=== PATIENT | female | born 1955 | race Caucasian/White ===

== ENCOUNTER → 2016-06-16 | Outpatient (CLI) | payer OTHER ==
[2016-01-26 13:03] VITALS: BP 101/57
--- NOTE | 2016-06-16 11:42 | RAD ---
HISTORY: Pain Study: Left shoulder series Comparison: None Findings: The glenohumeral joint is intact. No fracture or dislocation is seen. There are mild hypertrophic ch anges of the AC joint. The bones are osteopenic. The soft tissues are normal. IMPRESSION: Mild hypertrophic changes of the AC joint and osteopenia with no acute bony abnormality seen. Reported By:
--- NOTE | 2016-06-16 12:59 | MRI ---
Indication: Neck pain. Exam: MRI cervical spine without contrast. Technique: Routine multiplanar multisequence imaging was performed through the cervical spine withou t contrast. Findings: The cervical vertebra are well aligned. There is moderate disc space narrowing throughout the lower cervical spine which is most prominent at C6-7. No fracture or subluxation is seen. The ce rvical cord is normal size and signal intensity and the craniocervical junction is unremarkable. The bone marrow signal is normal throughout. There is a small disc osteophyte complex at C6-7 causing m ild anterior dural sac effacement. The neural foramina clear throughout. The paravertebral soft tiss ues are normal. Impression: Mild to moderate degenerative disk changes along the lower cervical spine which is most prominent at C6-7 with no acute abnormality seen. Small disc osteophyte complex at C6-7 causing mild dural sac effacement. Reported By:
--- NOTE | 2016-06-16 13:38 | RAD ---
HISTORY: Left rib pain Study: Left rib series Comparison: 01/26/2016 Findings: Four views are submitted. The lungs are clear without consolidation, effusion or pneumothorax. The c ardiac and mediastinal contours are within normal limits. No definite displaced rib fracture is identified. The bony thorax appears intact. IMPRESSION: 1. No displaced rib fracture identified. 2. No acute cardiopulmonary abnormality. Reported By:
--- NOTE | 2016-06-16 14:02 | MRI ---
HISTORY: Thoracic spine pain Study: MRI thoracic spine without contrast Comparison: None Technique: Multiplanar multi-sequence MRI of the thoracic spine was obtained with standard [facility] protocol. Findings: The thoracic spine demonstrates normal alignment. No abnormal cord or marrow signal identified. Prob able hemangioma is seen within the T4 vertebral body. The surrounding soft tissues are within normal limits. Vertebral body heights are preserved. The disc spaces are normal. IMPRESSION: 1. Unremarkable MRI of the thoracic spine. Reported By:
== END ==
LOC: RAD 08:39
PROVIDERS: ATTEND Nurse Practitioner Family
DX: M54.6 Pain in thoracic spine (principal); M54.2 Cervicalgia; R20.2 Paresthesia of skin; M25.512 Pain in left shoulder
CPT/HCPCS: 71111; 72141; 72146; 73030

== ENCOUNTER → 2016-09-04 | Outpatient (CLI) | payer OTHER ==
[2016-01-26 13:03] VITALS: BP 101/57
--- NOTE | 2016-09-05 11:19 | MG ---
HISTORY: SCREENING Comparison: None FINDINGS: Bilateral CC and MLO projections of the right and left breast were obtained. Scattered fibroglandul ar tissue is seen to be present. No significant architectural distortion, mass or clustered microca lcifications can be observed to suggest malignancy. No skin thickening or nipple retraction is appr eciated. No pathological lymphadenopathy can be identified. IMPRESSION: NO RADIOGRAPHIC EVIDENCE OF MALIGNANCY. ACR CATEGORY I - NEGATIVE EXAM. FOLLOW-UP EXAM 1 YEAR. Diagnostic CAD was utilized and reviewed. * 0 (ZERO) - ASSESSMENT INCOMPLETE; ADDITIONAL IMAGING IS NEEDED. * 1/ (ONE) - NEGATIVE. * 2/II (TWO) - BENIGN FINDINGS. * 3/III (THREE) - PROBABLY BENIGN FINDING; SHORT INTERVAL FOLLOW-UP SUGGESTED. * 4/IV (FOUR) - SUSPICIOUS ABNORMALITY; BIOPSY SHOULD BE CONSIDERED. * 5/V (FIVE) - HIGHLY SUSPICIOUS OF MALIGNANCY; BIOPSY SHOULD BE PERFORMED. A NEGATIVE X-RAY REPORT SHOULD NOT DELAY BIOPSY IF A DOMINANT OR CLINICALLY SUSPICIOUS MASS IS PRESENT; 4 TO 8 PERCENT OF CANCERS ARE NOT IDENTIFIED BY X-RAY. A NEG ATIVE REPORT MAY REINFORCE THE CLINICAL IMPRESSION. ADENOSIS AND DENSE BREASTS MAY OBSCURE AN UNDER LYING NEOPLASM. Reported By:
== END ==
LOC: RAD 08:57
PROVIDERS: ATTEND Nurse Practitioner Family
DX: Z12.31 Encounter for screening mammogram for malignant neoplasm of breast (principal)
CPT/HCPCS: 77067

== ENCOUNTER 2017-01-01 12:14 | Emergency (ER) | payer OTHER ==
[2017-01-01 12:21] VITALS: BP 96/63; BMI 25.0
[2017-01-01] MEDS ORDERED: TORADOL 60 MG VIAL IM ONE (13:37)
[2017-01-01] MEDS ORDERED: NORFLEX INJ IM ONE (13:37)
[2017-01-01] MEDS ORDERED: TORADOL 60 MG VIAL ONE (13:39)
--- NOTE | 2017-01-01 13:39 | DR.GENAD ---
HPI - PCP Primary Care Physician: NEGRO - HPI Comment HPI Comment: WORSE TODAY. DENIES DYSURIA. NO FEVER. NO OBVIOUD TRAUMA. - Complaint/Symptoms Chief Complaint Doctors Comments: HISTORY BELOW. Chief Complaint:: PT C/O RT HIP/ GROIN PAIN. PT STATES SHE DOESNT REALLY KNOW WHAT HAPPENED TO HERSELF YESTERDAY, BUT SHE HAS NOT BEEN ABLE TO WALK TODAY. PT STATES THE PAIN IS RADIATING FROM GROIN AREA TO RT BUTTOCK AREA. - Nurses notes reviewed Nurses Notes Review: Yes - Source History Provided: Patient - Mode of Arrival Mode of Arrival: Ambulatory - Timing Onset of Chief Complaint: 12/31/16 Came on: Suddenly - Duration Duration: Constant Duration: Hours - Severity Severity: Moderate PMH - PMH Past Medical History: Yes Past Medical History: Anxiety, Arthritis, Depression Past Surgical History: Yes Surgical History: Bowel Resection, Hysterectomy, Tonsillectomy, Other - Family History History of Family Medical Conditions: Yes Family Medical History: Diabetes Mellitus, Cancer - Social History Does patient currently use any type of tobacco product: Yes Have you used tobacco products in the last 12 months: Yes Type of Tobacco Use: Cigarettes Does any household member use tobacco: Yes Alcohol Use: None Do you use any recreational Drugs:: No Lives With: Alone Lives Where: Home - infectious screening In the last 2 months have you had wt loss of >10#?: NO Have you had fever, night sweats or hemotysis?: No Have you traveled outside the country in the last 6 months?: No Isolation: Standard ROS - Review of Systems Constitutional: No Symptoms Reported Eyes: No Symptoms Reported ENTM: No Symptoms Reported Respiratoy: No Symptoms Reported Cardiovascular: No Symptoms Reported Gastrointestinal/Abdominal: No Symptoms Reported Genitourinary: No Symptoms Reported Neurological: No Symptoms Reported Musculoskeletal: Back Pain, Joint Pain, Muscle Pain, Hip Integumentary: No Symptoms Reported Hematologic/Lymphatic: No Symptoms Reported Endocrine: No Symptoms Reported All Other Systems: Reviewed and Negative PE - Vital Signs Vitals: Temperature 97.6 F Pulse Rate 96 Respiratory Rate 20 Blood Pressure [Right Arm] 101/57 Blood Pressure [Left Arm] 122/67 Blood Pressure 96/63 O2 Sat by Pulse Oximetry 98 - General Limitations: No Limitations General Appearance: Alert - Head Head Exam: Normal Inspection - Eyes Eye exam: Normal Appearance - ENT ENT Exam: Normal External Ear Exam External Ear Exam: Normal External Inspection TM/Canal Exam: Bilateral Normal Nose Exam: Normal Nose Exam Mouth Exam: Normal Inspection Throat Exam: Normal Inspection - Neck Neck Exam: Trachea Midline - Chest Chest Inspection: Symmetric Chest Wall Rise - Respiratory Respiratory Exam: Normal Lung Sounds Bilat Respiratory Exam: Bilateral Clear to Auscultation - Cardiovascular Cardiovascular Exam: Regular Rate, Normal Rhythm, Normal Heart Sounds - Abdominal Exam Abdominal Exam: Normal Bowel Sounds, Soft, Tenderness, Other (RIGHT GROIN TENDERNESS.) - Extremities Extremities Exam: Normal Inspection - Back Back Exam: Normal Inspection - Neurologic Neurological Exam: Alert, Oriented X3 - Psychiatric Psychiatric Exam: Normal Affect, Normal Mood - Skin Skin Exam: Normal Color MDM - Differential Diagnosis Differential Diagnosis: SCIATICA, RIGHT GROIN PAIN, UTI, KIDNEY STONE Course - Treatment Treatment: SEE ORDERS. - Education/Counseling Education/Counseling: Patient, Education Educated On: Treatment, Diagnosis, Needs for Follow Up ROR - XRAY XRAY Interpreted by: Radiologist XRAY Findings: REPORT DISCUSS WITH PATIENT. - Diagnosis Discharge Problem: Right groin pain Bursitis Qualifiers: Bursitis location: hip Hip bursitis location: trochanteric bursitis Laterality : right Qualified Code(s): M70.61 - Trochanteric bursitis, right hip Sciatica Qualifiers: Laterality: right Qualified Code(s): M54.31 - Sciatica, right side - Discharge Plan Disposition: 01 HOME, SELF-CARE Condition: Stable Prescriptions: Cyclobenzaprine HCl [FLEXERIL 10 MG *] 10 mg PO TID PRN #20 tab PRN Reason: Ibuprofen [MOTRIN TAB 600 MG *] 600 mg PO TID PRN #20 tab PRN Reason: Pain/Inflammation - Follow ups/Referrals Follow ups/Referrals: STEPHON TOM [Primary Care Provider] - 1 day - Instructions Instructions: Bursitis, [id number], Musculoskeletal Pain Additional Instructions: RETURN TO ED IF WORSE.
[2017-01-01] MEDS ORDERED: NORFLEX INJ ONE (13:40)
--- NOTE | 2017-01-01 15:06 | RAD ---
HIP RADIOGRAPHS CLINICAL HISTORY: 61-year-old female with right hip pain after turning wrong. COMPARISON: None. FINDINGS: 2 views of the right hip were obtained. These demonstrate no acute fracture or malalignment . The femoral head is round and is well seated within the acetabulum. The joint spaces are maintained . The mineralization is maintained. There is no aggressive bone lesion or abnormal periosteal reactio n. There is no soft tissue calcification or gas. IMPRESSION: Negative screening radiographs of the right hip. Reported By:
== END 2017-01-01 15:12 | disposition home or self-care (01) ==
LOC: ER 12:29
DX: M70.61 Trochanteric bursitis, right hip (principal); M54.31 Sciatica, right side; R10.84 Generalized abdominal pain
CPT/HCPCS: 73501; 96372; 99282; 99283; J1885; J2360

== ENCOUNTER 2017-02-06 00:11 | Emergency (ER) | payer OTHER ==
[2017-02-06 00:28] VITALS: BMI 25.0
[2017-02-06] MEDS ORDERED: TORADOL 30 MG VIAL IVP ONE (00:34)
--- NOTE | 2017-02-06 00:34 | DR.GENAD ---
HPI - PCP Primary Care Physician: LEXY - Complaint/Symptoms Chief Complaint Doctors Comments: A 61 y/o female who complain of wrist pain onset today. 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 She has multiple joint pain. She recently had a test for rheumatoid arthritis and it was negative. "My doctor don't know what it is yet." Chief Complaint:: RIGHT WRIST PAIN ONSET TODAY, THINKS ITS GOUT, Self Treatment fo Chief Complaint: NONE - Nurses notes reviewed Nurses Notes Review: Yes - Source History Provided: Patient - Mode of Arrival Mode of Arrival: Ambulatory - Timing Onset of Chief Complaint: 02/06/17 PMH - PMH Past Medical History: Yes Past Medical History: Anxiety, Arthritis, Depression Past Surgical History: Yes Surgical History: Bowel Resection, Hysterectomy, Tonsillectomy, Other - Family History History of Family Medical Conditions: Yes Family Medical History: Diabetes Mellitus, Cancer - Social History Does patient currently use any type of tobacco product: Yes Have you used tobacco products in the last 12 months: Yes Type of Tobacco Use: Cigarettes Does any household member use tobacco: No Alcohol Use: None Do you use any recreational Drugs:: Yes (WEED) Lives With: Alone Lives Where: Home - infectious screening In the last 2 months have you had wt loss of >10#?: NO Have you had fever, night sweats or hemotysis?: No Have you traveled outside the country in the last 6 months?: No Isolation: Standard ROS - Review of Systems Constitutional: No Symptoms Reported Eyes: No Symptoms Reported ENTM: No Symptoms Reported Respiratoy: No Symptoms Reported Cardiovascular: No Symptoms Reported Gastrointestinal/Abdominal: No Symptoms Reported Genitourinary: No Symptoms Reported Neurological: No Symptoms Reported Musculoskeletal: Joint Pain, Right, Wrist Integumentary: No Symptoms Reported Hematologic/Lymphatic: No Symptoms Reported Endocrine: No Symptoms Reported Psychiatric: No Symptoms Reported All Other Systems: Reviewed and Negative PE - Vital Signs Vitals: Temperature 98.6 F Pulse Rate 82 Respiratory Rate 18 Blood Pressure [Right Arm] 101/57 Blood Pressure [Left Arm] 122/67 Blood Pressure 136/72 O2 Sat by Pulse Oximetry 97 - General Limitations: No Limitations General Appearance: Alert, In No Apparent Distress - Head Head Exam: Normal Inspection - Eyes Eye exam: Normal Appearance, PERRL, EOMI - ENT ENT Exam: Normal Exam Throat Exam: Normal Inspection - Neck Neck Exam: Normal Inspection, Full ROM, Trachea Midline - Chest Chest Inspection: Normal Inspection - Respiratory Respiratory Exam: Normal Lung Sounds Bilat - Cardiovascular Cardiovascular Exam: Regular Rate, Normal Rhythm - Abdominal Exam Abdominal Exam: Normal Inspection, Normal Bowel Sounds, Soft - Extremities Extremities Exam: Tenderness (over her rt. wrist), Joint Swelling (ventral surface of the rt. wrist.) - Back Back Exam: Normal Inspection - Neurologic Neurological Exam: Alert, Oriented X3, CN II-XII Intact - Psychiatric Psychiatric Exam: Normal Affect, Normal Mood - Skin Skin Exam: Warm, Dry, Intact, Normal Color ROR - XRAY XRAY Interpreted by: Radiologist (right wrist: mild osteoarthrosis of the right thumb at the MMCP joint; potentially a ganglion cyst or a subchondral geode. no acute fracture, dislocation or STS within the right wrist. ) - Diagnosis Discharge Problem: Wrist pain, right, Ganglion cyst of flexor tendon sheath, Subchondral cyst - Discharge Plan Disposition: 01 HOME, SELF-CARE Condition: Stable - Follow ups/Referrals Follow ups/Referrals: NFD,None [Primary Care Provider] - 3 days - Instructions
[2017-02-06] MEDS ORDERED: ULTRAM PO ONE (00:35)
[2017-02-06] MEDS ORDERED: TORADOL 30 MG VIAL ONE ×2 (00:54→00:56)
[2017-02-06] MEDS ORDERED: ULTRAM ONE (00:54)
[2017-02-06] MEDS ORDERED: TORADOL 30 MG VIAL IM ONE (00:56)
--- NOTE | 2017-02-06 01:33 | RAD ---
Three views of the right wrist Indication: Wrist pain with arthritis, no known injury Findings: There is no fracture or dislocation within the right wrist. There is a subcortical cyst wit hin the proximal pole of scaphoid. There is no significant joint space loss or degenerative change no kassidy within the wrist . There is mild degenerative change of the thumb MCP joint.. There is no localiz ing soft tissue swelling. No particular osteopenia or erosion identified. Impression: 1.Mild thumb MCP joint osteoarthrosis. 2. Suspected small cyst within the proximal pole of the scaphoid, potentially this represents a gangl ion cyst or a subchondral geode. 3. No acute fracture, dislocation or localizing soft tissue swelling within the right wrist. Reported By:
[2017-02-06 02:10] VITALS: BP 135/80
== END 2017-02-06 02:10 | disposition home or self-care (01) ==
LOC: ER 00:11
DX: M67.40 Ganglion, unspecified site (principal); M85.40 Solitary bone cyst, unspecified site; M25.531 Pain in right wrist
CPT/HCPCS: 73100; 96372; 99282; J1885

== ENCOUNTER 2017-06-23 14:01 | Emergency (ER) | payer SELFPAY ==
[2017-06-23 14:05] VITALS: BP 99/54; BMI 25.0
[2017-06-23] MEDS ORDERED: DUONEB 0.5 MG/3 MG NEB ONE (14:18)
--- NOTE | 2017-06-23 14:23 | DR.SOBA ---
HPI - Time Seen Time seen: 14:10 - Primary Care Physician Primary Care Physician: MATTHIAS WALKERP - HPI Comment HPI Comment: symptoms began 5-6 days ago. Went to PCP clinic yest, got abx and steroid injections, started on Zpack. No improvement. Increasing work of breathing, SOB with even light exertion. Fevers and chills at home - Complaints Chief Complaint:: PT. C/O SHORTNESS OF BREATH, PRODUCTIVE COUGH, HEADACHE, AND CHEST DISCOMFORT WHICH BEGAN ON THURSDAY. SHORTNESS OF BREATH HAS WORSENED. - Reviewed Nurses Notes Reviewed: Yes - Source History Provided: Patient - Mode of Arrival Mode of Arrival: Ambulatory - Timing Onset of Chief Complaint: 06/18/17 - Context Onset:: At Rest - Associated Signs and Symptoms Associated Signs and Symptoms: Cough, Nasal Congestion - If Cough Cough: Green PMH - PMH Past Medical History: Yes Past Medical History: Anxiety, Arthritis, Depression Past Surgical History: Yes Surgical History: Bowel Resection, Hysterectomy, Tonsillectomy, Other - Family History History of Family Medical Conditions: Yes Family Medical History: Diabetes Mellitus, Cancer - Social History Does patient currently use any type of tobacco product: Yes (smoker) Have you used tobacco products in the last 12 months: Yes Type of Tobacco Use: Cigarettes Does any household member use tobacco: No Alcohol Use: None Do you use any recreational Drugs:: No Lives With: Alone Lives Where: Home - infectious screening In the last 2 months have you had wt loss of >10#?: NO Have you had fever, night sweats or hemotysis?: No Have you traveled outside the country in the last 6 months?: No Isolation: Standard ROS - Review of Systems Constitutional: Chills, Fever, Weakness, Fatigue Eyes: No Symptoms Reported ENTM: Nose Congestion Respiratoy: Productive Cough, Short of Breath Cardiovascular: No Symptoms Reported Gastrointestinal/Abdominal: No Symptoms Reported Genitourinary: No Symptoms Reported Neurological: No Symptoms Reported Musculoskeletal: No Symptoms Reported Integumentary: No Symptoms Reported Hematologic/Lymphatic: No Symptoms Reported Endocrine: No Symptoms Reported Psychiatric: No Symptoms Reported All Other Systems: Reviewed and Negative PE - Vital Signs Vitals: Temperature 98.0 F Pulse Rate 82 Respiratory Rate 22 Blood Pressure [Right Arm] 135/80 Blood Pressure [Left Arm] 122/67 Blood Pressure 99/54 O2 Sat by Pulse Oximetry 97 - General Limitations: No Limitations General Appearance: Alert, In No Apparent Distress - Head Head Exam: Normal Inspection - Eyes Eye exam: Normal Appearance - ENT ENT Exam: Normal Exam, Normal Oropharynx, Normal External Ear Exam - Neck Neck Exam: Normal Inspection, Full ROM, Trachea Midline. negative: Tenderness, Meningismus, Lymphadenopathy - Chest Chest Inspection: Normal Inspection, Symmetric Chest Wall Rise. negative: Tenderness - Respiratory Respiratory Exam: negative: Respiratory Distress Respiratory Exam: Bilateral Wheezing, Bilateral Rhonchi - Cardiovascular Cardiovascular Exam: Regular Rate, Normal Rhythm, Normal Heart Sounds - Abdominal Exam Abdominal Exam: Normal Inspection, Normal Bowel Sounds, Soft - Extremities Extremities Exam: Normal Inspection, Full ROM, Normal Capillary Refill. negative: Edema - Back Back Exam: negative: (R) CVA Tenderness, (L) CVA Tenderness - Neurologic Neurological Exam: Alert, Oriented X3 - Psychiatric Psychiatric Exam: Normal Affect, Normal Mood - Skin Skin Exam: Warm, Dry, Intact ROR - Labs Reviewed Laboratory Results Reviewed?: Yes (DDimer elev 1030, flu-, wbc 14.6) Result Diagrams: 06/23/17 14:28 06/23/17 14:28 Laboratory: WBC 14.6 X10^3/uL (3.6-10.0) H 06/23/17 14:28 RBC 4.58 X10^6/uL (3.5-5.4) 06/23/17 14:28 Hgb 13.7 g/dL (12.0-16.0) 06/23/17 14:28 Hct 40.0 % (36.0-47.0) 06/23/17 14:28 MCV 87.3 fL (80.0-100.0) 06/23/17 14:28 MCH 29.8 pg (27.0-34.0) 06/23/17 14:28 MCHC 34.2 g/dL (33.0-35.0) 06/23/17 14:28 RDW 15.6 % (11.6-16.5) 06/23/17 14:28 Plt Count 349 X10^3/uL (150.0-450.0) 06/23/17 14:28 MPV 8.7 fL (7.4-11.0) 06/23/17 14:28 Neut % (Auto) 59.7 % (42.0-75.0) 06/23/17 14:28 Lymph % (Auto) 31.3 % (21.0-51.0) 06/23/17 14:28 [place] % (Auto) 6.3 % (0.0-13.0) 06/23/17 14:28 Eos % (Auto) 2.2 % (0.9-2.9) 06/23/17 14:28 Baso % (Auto) 0.5 % (0.2-1.0) 06/23/17 14:28 Neut # (Auto) 8.7 x10^3/uL (2.2-4.8) H 06/23/17 14:28 Lymph # (Auto) 4.6 X10^3/uL (1.3-2.9) H 06/23/17 14:28 [place] # (Auto) 0.9 x10^3/uL (0.3-0.8) H 06/23/17 14:28 Eos # (Auto) 0.3 x10^3/uL (0.0-0.2) H 06/23/17 14:28 Baso # (Auto) 0.1 X10^3/uL (0.0-0.1) 06/23/17 14: Absolute Nucleated RBC 0.0 /100WBC 06/23/17 14:28 D-Dimer 1030 ng/mL (0-400) H* 06/23/17 14:28 Sodium 135 mmol/L (136-145) L 06/23/17 14:28 Corrected Sodium 136 mmol/L (136-145) 06/23/17 14:28 Potassium 3.5 mmol/L (3.5-5.1) 06/23/17 14:28 Chloride 99 mmol/L (98-107) 06/23/17 14:28 Carbon Dioxide 26.2 mmol/L (21-32) 06/23/17 14:28 BUN 22 mg/dL (7-18) H 06/23/17 14:28 Creatinine 1.13 mg/dL (0.55-1.02) H 06/23/17 14:28 Est GFR (MDRD) Af Amer > 60 (>60) 06/23/17 14:28 Est GFR (MDRD) Non-Af 52 (>60) L 06/23/17 14:28 Glucose 123 mg/dL (65-99) H 06/23/17 14:28 Calcium 8.5 mg/dL (8.5-10.1) 06/23/17 14:28 Corrected Calcium 9.1 mg/dL (8.5-10.1) 06/23/17 14:28 Magnesium 2.0 mg/dL (1.7-2.9) 06/23/17 14:28 Total Bilirubin 0.20 mg/dL (0.2-1.0) 06/23/17 14:28 AST 17 Units/L (15-37) 06/23/17 14:28 ALT 21 Units/L (12-78) 06/23/17 14:28 Alkaline Phosphatase 165 Units/L (46-116) H 06/23/17 14:28 Creatine Kinase 82 Units/L (26-192) 06/23/17 14:28 CK-MB (CK-2) 2.2 ng/mL (0-4.0) 06/23/17 14:28 CK/CKMB % Calc 2.7 % (<4) 06/23/17 14:28 Troponin I < 0.02 ng/mL (0-1.5) 06/23/17 14:28 B-Natriuretic Peptide 43.1 pg/mL (0-79) 06/23/17 14:28 Total Protein 8.2 g/dL (6.4-8.2) 06/23/17 14:28 Albumin 3.3 g/dL (3.4-5.0) L 06/23/17 14:28 Globulin 4.9 g/dL (2.5-4.5) H 06/23/17 14:28 Albumin/Globulin Ratio 0.7 Ratio (1.1-2.1) L 06/23/17 14:28 Influenza Type A (PCR) Negative (NEGATIVE) 06/23/17 14:41 Influenza Type B (PCR) Negative (NEGATIVE) 06/23/17 14:41 - XRAY XRAY Interpreted by: Radiologist XRAY Findings: bronchitis, nothing else acute. CTA chest for PE neg acute - Diagnosis Discharge Problem: Bronchitis - Discharge Plan Disposition: 01 HOME, SELF-CARE Condition: Stable Prescriptions: Albuterol Sulfate [VENTOLIN or PROAIR HFA] 1 puff IN QID PRN #1 inh PRN Reason: Asthma Symptoms Amoxicillin/Potassium Clav [Augmentin 875-125 Tablet] 1 tab PO Q12H #20 tab - Follow ups/Referrals Follow ups/Referrals: STEPHON TOM [Primary Care Provider] - 3 days - Instructions Instructions: How to Use a Metered Dose Inhaler
[2017-06-23] MEDS ORDERED: DUONEB 0.5 MG/3 MG ONE (14:24)
[2017-06-23 14:40] LABS: BASOPHILS # (AUTO) 0.1 X10^3/uL (0.0-0.1); BASOPHILS % (AUTO) 0.5 % (0.2-1.0); EOSINOPHILS # (AUTO) 0.3 x10^3/uL (0.0-0.2); EOSINOPHILS % (AUTO) 2.2 % (0.9-2.9); HEMOGLOBIN 13.7 g/dL (12.0-16.0); LYMPHOCYTES # (AUTO) 4.6 X10^3/uL (1.3-2.9); LYMPHOCYTES % (AUTO) 31.3 % (21.0-51.0); MEAN CORPUSCULAR HEMOGLOBIN 29.8 pg (27.0-34.0); MEAN CORPUSCULAR HGB CONC 34.2 g/dL (33.0-35.0); MEAN CORPUSCULAR VOLUME 87.3 fL (80.0-100.0); MEAN PLATELET VOLUME 8.7 fL (7.4-11.0); MONOCYTES # (AUTO) 0.9 x10^3/uL (0.3-0.8); MONOCYTES % (AUTO) 6.3 % (0.0-13.0); NEUTROPHILS # (AUTO) 8.7 x10^3/uL (2.2-4.8); NEUTROPHILS % (AUTO) 59.7 % (42.0-75.0); PLATELET COUNT 349 X10^3/uL (150.0-450.0); RED BLOOD COUNT 4.58 X10^6/uL (3.5-5.4); RED CELL DISTRIBUTION WIDTH 15.6 % (11.6-16.5); WHITE BLOOD COUNT 14.6 X10^3/uL (3.6-10.0)
[2017-06-23 14:53] LABS: BLOOD UREA NITROGEN 22 mg/dL (7-18); CALCIUM 8.5 mg/dL (8.5-10.1); CARBON DIOXIDE 26.2 mmol/L (21-32); CHLORIDE 99 mmol/L (98-107); COR NA(FOR HYPERGLY) 136 mmol/L (136-145); CREATININE 1.13 mg/dL (0.55-1.02); SODIUM 135 mmol/L (136-145); TROPONIN I < 0.02 ng/mL (0-1.5); eGFR BLACK RACES > 60 (>60); eGFR NON BLACK RACES 52 (>60)
[2017-06-23 14:55] LABS: B-TYPE NATRIURETIC PEPTIDE 43.1 pg/mL (0-79)
[2017-06-23 14:59] LABS: ALANINE AMINOTRANSFERASE 21 Units/L (12-78); ALBUMIN 3.3 g/dL (3.4-5.0); ALKALINE PHOSPHATASE 165 Units/L (46-116); ASPARTATE AMINO TRANSFERASE 17 Units/L (15-37); CKMB % 2.7 % (<4); COR CA(FOR HYPOALB) 9.1 mg/dL (8.5-10.1); CREATINE KINASE 82 Units/L (26-192); CREATINE KINASE MB 2.2 ng/mL (0-4.0); TOTAL PROTEIN 8.2 g/dL (6.4-8.2)
--- NOTE | 2017-06-23 15:11 | RAD ---
STUDY: CHEST, TWO VIEWS History: Shortness of breath, productive cough, headache, chest discomfort which began on . Comparison: June 16, 2016. Findings: The trachea is midline. There is prominence of the central bronchopulmonary markings in both lungs an d prominence of pulmonary interstitial markings. There is no evidence of consolidation, significant i nfiltrate, effusion, or pneumothorax. The cardiac silhouette, mediastinum and osseous structures are unremarkable. IMPRESSION: 1. Bronchitis versus reactive airway disease. Reported By:
[2017-06-23] MEDS ORDERED: TORADOL 30 MG VIAL IVP ONE (15:37)
[2017-06-23] MEDS ORDERED: TORADOL 30 MG VIAL ONE (15:38)
[2017-06-23] MEDS ORDERED: NS 100 ML IV 100 ML IV ONE (15:39)
--- NOTE | 2017-06-23 16:24 | CT ---
CT ANGIOGRAPHY OF THE CHEST CLINICAL HISTORY: 61-year-old female with shortness of breath, productive cough headache and chest di [place]. COMPARISON: Chest radiographs this date. CT chest 05/19/2016. TECHNIQUE: CT angiogram of the chest was performed following the uncomplicated administration of 100 mL Omnipaque 350 intravenous contrast as per routine pulmonary embolus protocol. Coronal and Sagittal reformats provided. MIP reformats are submitted for review. FINDINGS: No pulmonary embolus is seen. There is no thoracic aortic dissection. The heart is normal in size and there is no pericardial effusion. Right hilar node measures up to 1. 5 cm with left hilar node measuring up to 1.8 cm, slightly increased in size on the left. Given diffe rences in slice selection and patient positioning these are not significantly changed. Stable left pl eural-based pulmonary nodule with unchanged emphysematous COPD. No mass, effusion or pneumothorax. The trachea and mainstem bronchi are patent. Status post cholecystectomy with imaged upper abdomen unremarkable. The arteriovascular structures are within normal limits. Soft tissues are normal. The osseous structures are intact without fracture or malalignment. IMPRESSION: 1. No pulmonary embolus. 2. Overall stable appearance of bilateral hilar nodes and left pleural-based nodule. 3. Emphysematous COPD is stable. Reported By:
== END 2017-06-23 16:59 | disposition home or self-care (01) ==
LOC: ER 14:11
DX: J40 Bronchitis, not specified as acute or chronic (principal); R06.02 Shortness of breath
CPT/HCPCS: 36415; 71046; 71275; 80053; 82550; 82553; 83735; 83880; 84484; 85025; 85378; 87502; 94640; 96365; 96374; 99283; A4216; A4222; J1885; J7620

== ENCOUNTER 2017-07-13 11:20 | Emergency (ER) | payer SELFPAY ==
[2017-07-13 11:26] VITALS: BP 139/81; BMI 25.0
--- NOTE | 2017-07-13 11:42 | DR.SOBA ---
HPI - Time Seen Time seen: 11:35 - Primary Care Physician Primary Care Physician: MATTHIAS WALKERP - Complaints Chief Complaint Doctors Comments: Patient with history of COPD worse today. Using nebs qid w/o much relief. Denies fever. Chief Complaint:: PT. C/O SHORTNESS OF BREATH WHICH BEGAN ON THURSDAY AND HAS WORSENED. PT. C/O PRODUCTIVE COUGH, THICK-GREEN MUCOUS. PT. STATES "MY CHEST HURTS, MY STOMACH HURTS, I JUST DON'T FEEL GOOD." - Source History Provided: Patient, Family Member - Mode of Arrival Mode of Arrival: Wheelchair - Timing Onset of Chief Complaint: 07/10/17 PMH - PMH Past Medical History: Yes Past Medical History: Anxiety, Arthritis, Depression Past Surgical History: Yes Surgical History: Bowel Resection, Hysterectomy, Tonsillectomy, Other - Family History History of Family Medical Conditions: Yes Family Medical History: Diabetes Mellitus, Cancer - Social History Does patient currently use any type of tobacco product: Yes Have you used tobacco products in the last 12 months: Yes Type of Tobacco Use: Cigarettes Does any household member use tobacco: No Alcohol Use: None Do you use any recreational Drugs:: No Lives With: Alone Lives Where: Home - infectious screening In the last 2 months have you had wt loss of >10#?: NO Have you had fever, night sweats or hemotysis?: No Have you traveled outside the country in the last 6 months?: No Isolation: Standard ROS - Review of Systems Eyes: No Symptoms Reported ENTM: No Symptoms Reported Respiratoy: No Symptoms Reported Cardiovascular: No Symptoms Reported Gastrointestinal/Abdominal: No Symptoms Reported Genitourinary: No Symptoms Reported Neurological: No Symptoms Reported Musculoskeletal: No Symptoms Reported Integumentary: No Symptoms Reported Hematologic/Lymphatic: No Symptoms Reported Endocrine: No Symptoms Reported, Excessive Sweating PE - Vital Signs Vitals: Temperature 97.6 F Pulse Rate 93 Respiratory Rate 26 Blood Pressure [Right Arm] 135/80 Blood Pressure [Left Arm] 122/67 Blood Pressure 139/81 O2 Sat by Pulse Oximetry 98 - General Limitations: Language Barrier General Appearance: Alert - Head Head Exam: Normal Inspection, Atraumatic - Eyes Eye exam: Normal Appearance, PERRL, EOMI - ENT ENT Exam: Normal Exam - Neck Neck Exam: Normal Inspection, Full ROM - Chest Chest Inspection: Normal Inspection, Symmetric Chest Wall Rise - Respiratory Respiratory Exam: Normal Lung Sounds Bilat Respiratory Exam: Bilateral Clear to Auscultation - Cardiovascular Cardiovascular Exam: Regular Rate, Normal Rhythm - Abdominal Exam Abdominal Exam: Normal Inspection, Normal Bowel Sounds Abdominal Tenderness: negative: RUQ, RLQ, LUQ, LLQ, Epigastrium, Suprapubic, Diffuse, Mild, Moderate, Severe, Other - Extremities Extremities Exam: Normal Inspection, Full ROM - Back Back Exam: Normal Inspection, Full ROM - Neurologic Neurological Exam: Alert, Oriented X3, CN II-XII Intact - Psychiatric Psychiatric Exam: Normal Affect, Normal Mood - Skin Skin Exam: Warm, Dry, Intact Course - Treatment Treatment: Duo Nebs x 2, Solu Medrol 125, 94% RA oxygen saturation - Reevaluation 1st: Improved - Education/Counseling Educated On: Treatment, Diagnosis, Prognosis ROR - Labs Reviewed Result Diagrams: 07/13/17 11:54 07/13/17 11:54 Laboratory: 07/13/17 12:28 Sputum - Expectorated Sputum - Final WBC 10.6 X10^3/uL (3.6-10.0) H 07/13/17 11:54 RBC 4.81 X10^6/uL (3.5-5.4) 07/13/17 11:54 Hgb 14.8 g/dL (12.0-16.0) 07/13/17 11:54 Hct 42.6 % (36.0-47.0) 07/13/17 11:54 MCV 88.5 fL (80.0-100.0) 07/13/17 11:54 MCH 30.7 pg (27.0-34.0) 07/13/17 11:54 MCHC 34.7 g/dL (33.0-35.0) 07/13/17 11:54 RDW 15.4 % (11.6-16.5) 07/13/17 11:54 Plt Count 337 X10^3/uL (150.0-450.0) 07/13/17 11:54 MPV 9.3 fL (7.4-11.0) 07/13/17 11:54 Neut % (Auto) 57.7 % (42.0-75.0) 07/13/17 11:54 Lymph % (Auto) 25.2 % (21.0-51.0) 07/13/17 11:54 [place] % (Auto) 5.3 % (0.0-13.0) 07/13/17 11:54 Eos % (Auto) 10.8 % (0.9-2.9) H 07/13/17 11:54 Baso % (Auto) 1.0 % (0.2-1.0) 07/13/17 11:54 Neut # (Auto) 6.1 x10^3/uL (2.2-4.8) H 07/13/17 11:54 Lymph # (Auto) 2.7 X10^3/uL (1.3-2.9) 07/13/17 11:54 [place] # (Auto) 0.6 x10^3/uL (0.3-0.8) 07/13/17 11:54 Eos # (Auto) 1.1 x10^3/uL (0.0-0.2) H 07/13/17 11:54 Baso # (Auto) 0.1 X10^3/uL (0.0-0.1) 07/13/17 11:54 Absolute Nucleated RBC 0.0 /100WBC 07/13/17 11:54 Sample Site Rra 07/13/17 12:00 ABG pH 7.450 (7.35-7.45) 07/13/17 12:00 ABG pCO2 38.0 mmHg (35.0-45.0) 07/13/17 12:00 ABG pO2 83.0 mmHg (80.0-100.0) 07/13/17 12:00 ABG HCO3 26.4 mmol/L (22-26) H 07/13/17 12:00 ABG O2 Saturation 97.0 % (90-100) 07/13/17 12:00 ABG Base Excess 2.4 mmol/L (-2.0-2.0) H 07/13/17 12:00 Ravindra Test Pos 07/13/17 12:00 A-a Gradient 69.0 mmHg 07/13/17 12:00 FiO2 28.000 07/13/17 12:00 Blood Gas Comments Qing well cs 07/13/17 12:00 Sodium 139 mmol/L (136-145) 07/13/17 11:54 Corrected Sodium 140 mmol/L (136-145) 07/13/17 11:54 Potassium 3.6 mmol/L (3.5-5.1) 07/13/17 11:54 Chloride 104 mmol/L (98-107) 07/13/17 11:54 Carbon Dioxide 28.2 mmol/L (21-32) 07/13/17 11:54 BUN 5 mg/dL (7-18) L 07/13/17 11:54 Creatinine 0.63 mg/dL (0.55-1.02) 07/13/17 11:54 Est GFR (MDRD) Af Amer > 60 (>60) 07/13/17 11:54 Est GFR (MDRD) Non-Af > 60 (>60) 07/13/17 11:54 Glucose 157 mg/dL (65-99) H 07/13/17 11:54 Calcium 8.6 mg/dL (8.5-10.1) 07/13/17 11:54 Corrected Calcium 9.2 mg/dL (8.5-10.1) 07/13/17 11:54 Total Bilirubin 0.30 mg/dL (0.2-1.0) 07/13/17 11:54 AST 21 Units/L (15-37) 07/13/17 11:54 ALT 24 Units/L (12-78) 07/13/17 11:54 Alkaline Phosphatase 183 Units/L (46-116) H 07/13/17 11:54 Total Protein 7.9 g/dL (6.4-8.2) 07/13/17 11:54 Albumin 3.2 g/dL (3.4-5.0) L 07/13/17 11:54 Globulin 4.7 g/dL (2.5-4.5) H 07/13/17 11:54 Albumin/Globulin Ratio 0.7 Ratio (1.1-2.1) L 07/13/17 11:54 - XRAY XRAY Interpreted by: Radiologist (Chest: No change compared 06/23/17 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 Peribronchial thickening consistent with bronchitis withch could be acute, chronic or both.) - Diagnosis Discharge Problem: COPD (chronic obstructive pulmonary disease) Qualifiers: COPD type: COPD with acute exacerbation Qualified Code(s): J44.1 - Chronic obstructive pulmonary disease with (acute) exacerbation - Discharge Plan Condition: Stable - Follow ups/Referrals Follow ups/Referrals: STEPHON TOM [Primary Care Provider] - 3 days - Instructions
[2017-07-13] MEDS ORDERED: SOLU-Medrol 125 MG VIAL IVP ONE (11:45)
[2017-07-13] MEDS ORDERED: SOLU-Medrol 125 MG VIAL ONE (11:47)
[2017-07-13] MEDS ORDERED: DUONEB 0.5 MG/3 MG ONE ×2 (11:50→13:19)
[2017-07-13] MEDS ORDERED: NS 1000 ML 1,000 ML IV SCH (12:00)
[2017-07-13] MEDS ORDERED: TORADOL 30 MG VIAL IVP ONE (12:03)
[2017-07-13] MEDS ORDERED: NS 1000 ML 1,000 ML ONE (12:04)
[2017-07-13] MEDS ORDERED: TORADOL 30 MG VIAL ONE (12:04)
[2017-07-13 12:07] LABS: ABG ALLEN TEST POS; ABG BASE EXCESS 2.4 mmol/L (-2.0-2.0); ABG HCO3 26.4 mmol/L (22-26)
[2017-07-13 12:14] LABS: BASOPHILS # (AUTO) 0.1 X10^3/uL (0.0-0.1); EOSINOPHILS # (AUTO) 1.1 x10^3/uL (0.0-0.2); EOSINOPHILS % (AUTO) 10.8 % (0.9-2.9); HEMATOCRIT 42.6 % (36.0-47.0); HEMOGLOBIN 14.8 g/dL (12.0-16.0); LYMPHOCYTES # (AUTO) 2.7 X10^3/uL (1.3-2.9); LYMPHOCYTES % (AUTO) 25.2 % (21.0-51.0); MEAN CORPUSCULAR HEMOGLOBIN 30.7 pg (27.0-34.0); MEAN CORPUSCULAR HGB CONC 34.7 g/dL (33.0-35.0); MEAN CORPUSCULAR VOLUME 88.5 fL (80.0-100.0); MEAN PLATELET VOLUME 9.3 fL (7.4-11.0); MONOCYTES # (AUTO) 0.6 x10^3/uL (0.3-0.8); MONOCYTES % (AUTO) 5.3 % (0.0-13.0); NEUTROPHILS # (AUTO) 6.1 x10^3/uL (2.2-4.8); NEUTROPHILS % (AUTO) 57.7 % (42.0-75.0); PLATELET COUNT 337 X10^3/uL (150.0-450.0); RED BLOOD COUNT 4.81 X10^6/uL (3.5-5.4); RED CELL DISTRIBUTION WIDTH 15.4 % (11.6-16.5); WHITE BLOOD COUNT 10.6 X10^3/uL (3.6-10.0)
[2017-07-13 12:23] LABS: ALANINE AMINOTRANSFERASE 24 Units/L (12-78); ALBUMIN 3.2 g/dL (3.4-5.0); ALKALINE PHOSPHATASE 183 Units/L (46-116); ASPARTATE AMINO TRANSFERASE 21 Units/L (15-37); BLOOD UREA NITROGEN 5 mg/dL (7-18); CALCIUM 8.6 mg/dL (8.5-10.1); CARBON DIOXIDE 28.2 mmol/L (21-32); CHLORIDE 104 mmol/L (98-107); COR CA(FOR HYPOALB) 9.2 mg/dL (8.5-10.1); COR NA(FOR HYPERGLY) 140 mmol/L (136-145); CREATININE 0.63 mg/dL (0.55-1.02); SODIUM 139 mmol/L (136-145); TOTAL PROTEIN 7.9 g/dL (6.4-8.2); eGFR BLACK RACES > 60 (>60); eGFR NON BLACK RACES > 60 (>60)
--- NOTE | 2017-07-13 13:10 | CT ---
HISTORY: Dyspnea Study: CT chest without contrast Comparison: 06/23/2017 Technique: Axial noncontrast images with coronal and sagittal reformats. Dose reduction procedures we re used with mA/kv adjusted for body size. The examination is limited due to the lack of intravenous contrast. Findings: Examination of the mediastinum demonstrated no evidence for mediastinal masses, enlarged mediastinal or enlarged hilar adenopathy to the limitations of an unenhanced examination. No pleural effusions ar e identified. No chest wall or axillary abnormality is identified. Those portions of the upper or abd ominal organs visualized were within normal limits to the limitations of an unenhanced examination. T he lungs are markedly hyperinflated. Centrilobular emphysematous changes are present diffusely. No pa renchymal nodules, masses, alveolar infiltrates, or areas of consolidation are identified. There is p eribronchial thickening consistent with bronchitis which could be acute, chronic, or both. Bibasilar interstitial lung changes are present. 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 Reported By:
[2017-07-13] MEDS ORDERED: DUONEB 0.5 MG/3 MG NEB ONE (13:19)
[2017-07-13] MEDS ORDERED: DUONEB 0.5 MG/3 MG NEB SCH (21:00)
== END 2017-07-13 14:27 | disposition home or self-care (01) ==
LOC: ER 11:37
DX: J44.1 Chronic obstructive pulmonary disease with (acute) exacerbation (principal); Z72.0 Tobacco use
CPT/HCPCS: 36415; 36600; 71250; 80053; 82803; 85025; 87040; 87070; 87205; 94640; 96365; 96367; 96374; 96375; 99283; A4222; J1885; J2930; J7620

== ENCOUNTER 2017-09-15 16:25 | Inpatient (IN) ==
[2017-09-15 17:19] LABS: ABG BASE EXCESS 0.8 mmol/L (-2.0-2.0); ABG HCO3 25.3 mmol/L (22-26)
[2017-09-15 17:20] LABS: ABG ALLEN TEST POS
[2017-09-15 17:33] LABS: BASOPHILS # (AUTO) 0.1 X10^3/uL (0.0-0.1); BASOPHILS % (AUTO) 0.6 % (0.2-1.0); EOSINOPHILS # (AUTO) 1.4 x10^3/uL (0.0-0.2); HEMATOCRIT 41.5 % (36.0-47.0); LYMPHOCYTES # (AUTO) 3.4 X10^3/uL (1.3-2.9); LYMPHOCYTES % (AUTO) 27.4 % (21.0-51.0); MEAN CORPUSCULAR HEMOGLOBIN 30.8 pg (27.0-34.0); MEAN CORPUSCULAR HGB CONC 33.6 g/dL (33.0-35.0); MEAN CORPUSCULAR VOLUME 91.5 fL (80.0-100.0); MEAN PLATELET VOLUME 9.5 fL (7.4-11.0); MONOCYTES # (AUTO) 0.7 x10^3/uL (0.3-0.8); MONOCYTES % (AUTO) 5.4 % (0.0-13.0); NEUTROPHILS # (AUTO) 6.9 x10^3/uL (2.2-4.8); NEUTROPHILS % (AUTO) 55.6 % (42.0-75.0); PLATELET COUNT 294 X10^3/uL (150.0-450.0); RED BLOOD COUNT 4.54 X10^6/uL (3.5-5.4); RED CELL DISTRIBUTION WIDTH 14.9 % (11.6-16.5); WHITE BLOOD COUNT 12.3 X10^3/uL (3.6-10.0)
[2017-09-15 17:38] LABS: BLOOD UREA NITROGEN 10 mg/dL (7-18); CALCIUM 8.7 mg/dL (8.5-10.1); CARBON DIOXIDE 25.9 mmol/L (21-32); CHLORIDE 104 mmol/L (98-107); COR NA(FOR HYPERGLY) 140 mmol/L (136-145); SODIUM 139 mmol/L (136-145); eGFR NON BLACK RACES > 60 (>60)
[2017-09-15] MEDS: ZITHROMAX INJ 500 MG VIAL 500 MG in NS 250 ML IV 250 ML IV SCH (17:48)
[2017-09-15] MEDS: NS 1000 ML 1,000 ML IV SCH (17:48)
--- NOTE | 2017-09-15 18:00 | RAD ---
Chest PA and lateral Indication: COPD. Comparison: 06/23/2017 Findings: There is no pneumothorax or effusion. No dense consolidation seen. Hyperinflation is of the lung is noted with peribronchial thickening. Heart size is within normal limits Impression: COPD change with bronchitis. Reported By:
[2017-09-15] MEDS: DUONEB 0.5 MG/3 MG NEB SCH ×2 (18:08→20:47)
[2017-09-15] MEDS ORDERED: FORTAZ or TAZICEF VIAL INJ ONE ×2 (18:34→21:37)
[2017-09-15 19:01] LABS: BILIRUBIN,URINE NEGATIVE (NEGATIVE); BLOOD/HEMOGLOBIN,URINE NEGATIVE (NEGATIVE); GLUCOSE, URINE NEGATIVE (NEGATIVE); KETONES,URINE NEGATIVE (NEGATIVE); LEUKOCYTE ESTERASE ,URINE NEGATIVE (NEGATIVE); NITRITES,URINE NEGATIVE (NEGATIVE); PROTEIN,URINE NEGATIVE (NEGATIVE); UROBILINOGEN,URINE NORMAL (NORMAL)
[2017-09-15 19:02] LABS: APPEARANCE,URINE CLEAR (CLEAR); COLOR,URINE YELLOW (YELLOW)
[2017-09-15] MEDS: ROBITUSSIN DM PO PRN ×2 (19:37→23:24)
[2017-09-15] MEDS: NORCO 5/325 MG TAB PO PRN (19:38)
[2017-09-15 19:40] VITALS: BMI 23.8
[2017-09-15] MEDS ORDERED: POTASSIUM CHLORIDE LIQ 20 MEQ UDC PO PRN (19:58)
[2017-09-15] MEDS ORDERED: POTASSIUM CHL 60 MEQ/NS 0.45% 500 ML IV PRN (19:58)
[2017-09-15] MEDS ORDERED: K-LYTE EFFERVESCENT PO PRN (19:58)
[2017-09-15] MEDS ORDERED: K-RIDER 10 MEQ/NS 100 ML 10 MEQ/100 ML BAG IV PRN (19:58)
[2017-09-15] MEDS ORDERED: POTASSIUM CHL 40 MEQ/NS 0.45% 500 ML IV PRN (19:58)
[2017-09-15] MEDS ORDERED: NS 100 ML IV + SPIKE MINIBAG* 100 ML IV ONE ×2 (20:13→21:37)
[2017-09-15] MEDS: FORTAZ or TAZICEF VIAL INJ 1 G in NS 50 ML IV + SPIKE MINIBAG* 50 ML IV SCH ×2 (20:19→23:23)
[2017-09-15] MEDS ORDERED: PATIENT'S HOME MEDICATION (Albuterol Sulfate 1 PUFF) IN PRN (22:22)
[2017-09-15] MEDS ORDERED: NORCO 5/325 MG TAB PO PRN (22:22)
[2017-09-15] MEDS ORDERED: PROVENTIL NEB TX 0.083% 2.5MG/ 3ML NEB PRN (22:39)
--- NOTE | 2017-09-15 23:30 | DR.H&P ---
H&P - History & Physical for Day of: H&P Date: 09/15/17 - Chief Complaint Chief Complaint: Cough, congestion, wheezing with shortness of breath - History of Present Illness History of Present Illness: Patient is a 61 YO WF that presents to the office for evaluation of medical problems. Patient c/o increasing SOB over the past few days. States that she has been doing neb treatments, inhalers, and robitussin without relief or improvement of symptoms. Reports dry cough that causes her to loose her breath. States she tried to work today. Admitted to having to sit down and rest three times this morning while trying to get ready for work. O2 stat noted to be 93% on room air in the office. - Past Medical History Past Medical History: Anxiety, Arthritis, Depression Additional Medical History: SMOKER - Past Surgical History Surgical History: Appendectomy, Bowel Resection, Hysterectomy, Tonsillectomy, Other - Family History Family Medical History: Diabetes Mellitus, Cancer - Social History Does patient currently use any type of tobacco product: Yes Have you used tobacco products in the last 12 months: Yes Type of Tobacco Use: Cigarettes Does any household member use tobacco: No Alcohol Use: Occasionally Drug Use: None - Medications Home Medications: No Known Drug Allergies Allergy (Verified 02/06/17 00:21) CONTINUE taking the following medications alprazolam 1 tab PO BID PRN 09/15/17 [History] celecoxib 1 cap PO BID 09/15/17 [History] cyclobenzaprine 1 tab PO BID 09/15/17 [History] hydrocodone-acetaminophen 1 tab PO BID PRN 09/15/17 [History] sertraline 1 tab PO HS 09/15/17 [History] venlafaxine 1 cap PO AC 09/15/17 [History] - Review of Systems Constitutional: Malaise Eyes: No Symptoms Reported ENT: No Symptoms Reported Respiratory: Cough, Shortness of Breath, SOB with Excertion, Wheezing Cardiovascular: No Symptoms Reported Gastrointestinal: No Symptoms Reported Genitourinary: No Symptoms Reported Musculoskeletal: Back Pain Skin: No Symptoms Reported Neurological: No Symptoms Reported - Physical Exam Vital Signs: Temperature 98.3 F Pulse Rate [Right Radial] 81 Pulse Rate 84 Respiratory Rate 20 Blood Pressure [Right Arm] 90/54 Blood Pressure [Left Arm] 122/67 Blood Pressure 139/81 O2 Sat by Pulse Oximetry 95 Oriented: Normal Eyes: Normal Ear: Normal Nose: Normal Throat: Normal Respiratory: RUL Insp. Wheeze, RML Insp. Wheeze, RLL Insp. Wheeze, ADAM Insp.Wheeze, LML Insp.Wheeze, LLL Insp.Wheeze, RUL Exp. Wheeze, RML Exp. Wheeze , RLL Exp. Wheeze, ADAM Exp. Wheeze, LML Exp. Wheeze, LLL Exp. Wheeze Cardiovascular: Normal : Normal Auscultation: Bowel Sounds: Normal Palpation: Normal Tenderness: Normal Skin: Normal Musculoskeletal: Normal Psychiatric: Normal Mood Description: Calm Affect: Normal Speech Pattern: Clear - Assessment/Plan (1) Acute bronchitis Status: Acute Plan: CXR, NEBs, Solumedrol, Antibiotics (2) Shortness of breath Status: Acute Plan: CXR, NEBs, Solumedrol, Antibiotics (3) COPD (chronic obstructive pulmonary disease) Qualifiers: COPD type: COPD with acute exacerbation Qualified Code(s): J44.1 - Chronic obstructive pulmonary disease with (acute) exacerbation Status: Acute Plan: CXR, NEBs, Solumedrol, Antibiotics - Allergies Allergies/Adverse Reactions: Allergies Allergy/AdvReac Type Severity Reaction Status Date / Time No Known Drug Allergies Allergy Verified 02/06/17 00:21
[2017-09-16] MEDS: DUONEB 0.5 MG/3 MG NEB SCH ×6 (00:33→20:56)
[2017-09-16] MEDS ORDERED: NS 100 ML IV + SPIKE MINIBAG* 100 ML IV ONE ×2 (01:34→20:38)
[2017-09-16] MEDS ORDERED: FORTAZ or TAZICEF VIAL INJ ONE ×2 (01:34→20:38)
[2017-09-16] MEDS: NORCO 5/325 MG TAB PO PRN ×2 (02:18→10:24)
[2017-09-16] MEDS ORDERED: SALINE 3% 15 ML NEB TX ONE (04:15)
[2017-09-16] MEDS ORDERED: SALINE 3% 15 ML NEB TX NEB ONE (04:30)
[2017-09-16 05:09] LABS: BASOPHILS % (AUTO) 0.1 % (0.2-1.0); EOSINOPHILS # (AUTO) 1.4 x10^3/uL (0.0-0.2); EOSINOPHILS % (AUTO) 12.6 % (0.9-2.9); HEMATOCRIT 39.5 % (36.0-47.0); HEMOGLOBIN 13.5 g/dL (12.0-16.0); LYMPHOCYTES % (AUTO) 36.1 % (21.0-51.0); MEAN CORPUSCULAR HEMOGLOBIN 31.5 pg (27.0-34.0); MEAN CORPUSCULAR HGB CONC 34.3 g/dL (33.0-35.0); MEAN PLATELET VOLUME 9.3 fL (7.4-11.0); MONOCYTES # (AUTO) 0.8 x10^3/uL (0.3-0.8); MONOCYTES % (AUTO) 7.1 % (0.0-13.0); NEUTROPHILS # (AUTO) 4.8 x10^3/uL (2.2-4.8); NEUTROPHILS % (AUTO) 44.1 % (42.0-75.0); PLATELET COUNT 262 X10^3/uL (150.0-450.0); RED BLOOD COUNT 4.29 X10^6/uL (3.5-5.4); RED CELL DISTRIBUTION WIDTH 14.9 % (11.6-16.5)
[2017-09-16 05:21] LABS: ALANINE AMINOTRANSFERASE 19 Units/L (12-78); ALBUMIN 2.9 g/dL (3.4-5.0); ALKALINE PHOSPHATASE 136 Units/L (46-116); ASPARTATE AMINO TRANSFERASE 18 Units/L (15-37); BLOOD UREA NITROGEN 8 mg/dL (7-18); CALCIUM 8.2 mg/dL (8.5-10.1); CARBON DIOXIDE 27.6 mmol/L (21-32); CHLORIDE 107 mmol/L (98-107); COR CA(FOR HYPOALB) 9.1 mg/dL (8.5-10.1); CREATININE 0.79 mg/dL (0.55-1.02); SODIUM 141 mmol/L (136-145); TOTAL PROTEIN 6.9 g/dL (6.4-8.2); eGFR NON BLACK RACES > 60 (>60)
[2017-09-16] MEDS: FORTAZ or TAZICEF VIAL INJ 1 G in NS 50 ML IV + SPIKE MINIBAG* 50 ML IV SCH (05:49)
[2017-09-16] MEDS ORDERED: VENLAFAXINE PO SCH (06:30)
[2017-09-16] MEDS ORDERED: CELECOXIB PO SCH (09:00)
[2017-09-16] MEDS: EFFEXOR XR 75 MG CAP PO SCH (09:43)
[2017-09-16] MEDS: ZITHROMAX INJ 500 MG VIAL 500 MG in NS 250 ML IV 250 ML IV SCH (09:43)
[2017-09-16] MEDS: FLEXERIL TAB 10 MG PO SCH ×2 (09:44→20:04)
[2017-09-16] MEDS: SOLU-Medrol 40 MG VIAL IVP SCH ×2 (09:44→17:28)
[2017-09-16] MEDS: CELEBREX PO SCH ×2 (09:44→20:05)
--- NOTE | 2017-09-16 12:18 | PCM.PROG ---
Progress Note - Progress Note for Day of Date of Exam: 09/16/17 - Subjective Subjective: 61YO WF ADMITTED DUE TO COPD EXACERBATION. CONTINUES TO WHEEZE AND HAVE DYSPNEA WITH EXERTION. LOSES BREATH WITH TALKING OR WALKING. CONTINUES TO HAVE NONPRODUCTIVE TIGHT COUGH. DOES COMPLAIN OF RIGTH HIP PAIN. DENIES ANY OTHER COMPLAINTS. - Past Medical Family Social History Past Med/Fam/Surg Hx: No changes since H&P Allergies: Allergies No Known Drug Allergies Allergy (Verified 02/06/17 00:21) - Review of Systems ROS: No change since H&P - Vital Signs and I&O's Vital Signs: Temperature 98.1 F Pulse Rate [Right Radial] 76 Pulse Rate 74 Respiratory Rate 20 Blood Pressure [Right Arm] 108/50 Blood Pressure [Left Arm] 122/67 Blood Pressure 139/81 O2 Sat by Pulse Oximetry 96 Intake and Output: Intake & Output 09/14/17 09/15/17 09/16/17 09/17/17 11:59 11:59 11:59 11:59 Intake Total 2059 Balance 2059 - Physical Exam Oriented: Normal Eyes: Normal Ear: Normal Nose: Normal Throat: Normal Respiratory: Right, Left, Generalized, Diminished, Wheezes Cardiovascular: Normal : Normal Auscultation: Bowel Sounds: Normal Palpation: Normal Tenderness: Normal Skin: Normal Musculoskeletal: Normal, Hip (RIGHT) Psychiatric: Normal Mood Description: Calm Affect: Normal Speech Pattern: Clear, Appropriate - Laboratory and Diagnostics Result Diagrams: 09/16/17 04:38 09/16/17 04:38 Labs: 09/15/17 17:56 Urine,Clean Catch Urine Culture - Preliminary 09/16/17 05:39 Sputum - Expectorated Sputum - Final Laboratory WBC 11.0 X10^3/uL (3.6-10.0) H 09/16/17 04:38 RBC 4.29 X10^6/uL (3.5-5.4) 09/16/17 04:38 Hgb 13.5 g/dL (12.0-16.0) 09/16/17 04:38 Hct 39.5 % (36.0-47.0) 09/16/17 04:38 MCV 92.0 fL (80.0-100.0) 09/16/17 04:38 MCH 31.5 pg (27.0-34.0) 09/16/17 04:38 MCHC 34.3 g/dL (33.0-35.0) 09/16/17 04:38 RDW 14.9 % (11.6-16.5) 09/16/17 04:38 Plt Count 262 X10^3/uL (150.0-450.0) 09/16/17 04:38 MPV 9.3 fL (7.4-11.0) 09/16/17 04:38 Neut % (Auto) 44.1 % (42.0-75.0) 09/16/17 04:38 Lymph % (Auto) 36.1 % (21.0-51.0) 09/16/17 04:38 [place] % (Auto) 7.1 % (0.0-13.0) 09/16/17 04:38 Eos % (Auto) 12.6 % (0.9-2.9) H 09/16/17 04:38 Baso % (Auto) 0.1 % (0.2-1.0) L 09/16/17 04:38 Neut # (Auto) 4.8 x10^3/uL (2.2-4.8) 09/16/17 04:38 Lymph # (Auto) 4.0 X10^3/uL (1.3-2.9) H 09/16/17 04:38 [place] # (Auto) 0.8 x10^3/uL (0.3-0.8) 09/16/17 04:38 Eos # (Auto) 1.4 x10^3/uL (0.0-0.2) H 09/16/17 04:38 Baso # (Auto) 0.0 X10^3/uL (0.0-0.1) 09/16/17 04:38 Absolute Nucleated RBC 0.0 /100WBC 09/16/17 04:38 Sample Site Rbrach 09/15/17 17:05 ABG pH 7.420 (7.35-7.45) 09/15/17 17:05 ABG pCO2 39.0 mmHg (35.0-45.0) 09/15/17 17:05 ABG pO2 114.0 mmHg (80.0-100.0) H 09/15/17 17:05 ABG HCO3 25.3 mmol/L (22-26) 09/15/17 17:05 ABG O2 Saturation 99.0 % (90-100) 09/15/17 17:05 ABG Base Excess 0.8 mmol/L (-2.0-2.0) 09/15/17 17:05 Ravindra Test Pos 09/15/17 17:05 A-a Gradient 94.0 mmHg 09/15/17 17:05 FiO2 36.000 09/15/17 17:05 Blood Gas Comments Qing well ah 09/15/17 17:05 Sodium 141 mmol/L (136-145) 09/16/17 04:38 Corrected Sodium TNP 09/16/17 04:38 Potassium 4.0 mmol/L (3.5-5.1) 09/16/17 04:38 Chloride 107 mmol/L (98-107) 09/16/17 04:38 Carbon Dioxide 27.6 mmol/L (21-32) 09/16/17 04:38 BUN 8 mg/dL (7-18) 09/16/17 04:38 Creatinine 0.79 mg/dL (0.55-1.02) 09/16/17 04:38 Est GFR (MDRD) Af Amer > 60 (>60) 09/16/17 04:38 Est GFR (MDRD) Non-Af > 60 (>60) 09/16/17 04:38 Glucose 109 mg/dL (65-99) H 09/16/17 04:38 Calcium 8.2 mg/dL (8.5-10.1) L 09/16/17 04:38 Corrected Calcium 9.1 mg/dL (8.5-10.1) 09/16/17 04:38 Magnesium 2.1 mg/dL (1.7-2.9) 09/15/17 17:13 Total Bilirubin 0.20 mg/dL (0.2-1.0) 09/16/17 04:38 AST 18 Units/L (15-37) 09/16/17 04:38 ALT 19 Units/L (12-78) 09/16/17 04:38 Alkaline Phosphatase 136 Units/L (46-116) H 09/16/17 04:38 Total Protein 6.9 g/dL (6.4-8.2) 09/16/17 04:38 Albumin 2.9 g/dL (3.4-5.0) L 09/16/17 04:38 Globulin 4.0 g/dL (2.5-4.5) 09/16/17 04:38 Albumin/Globulin Ratio 0.7 Ratio (1.1-2.1) L 09/16/17 04:38 Specimen Type Clean catch urine 09/15/17 16:55 Urine Color Yellow (YELLOW) 09/15/17 16:55 Urine Appearance Clear (CLEAR) 09/15/17 16:55 Urine pH 6.0 (5.0 - 8.0) 09/15/17 16:55 Ur Specific [place] 1.010 (1.000-1.030) 09/15/17 16:55 Urine Protein Negative (NEGATIVE) 09/15/17 16:55 Urine Glucose (UA) Negative (NEGATIVE) 09/15/17 16:55 Urine Ketones Negative (NEGATIVE) 09/15/17 16:55 Urine Occult Blood Negative (NEGATIVE) 09/15/17 16:55 Urine Nitrite Negative (NEGATIVE) 09/15/17 16:55 Urine Bilirubin Negative (NEGATIVE) 09/15/17 16:55 Urine Urobilinogen Normal (NORMAL) 09/15/17 16:55 Ur Leukocyte Esterase Negative (NEGATIVE) 09/15/17 16:55 - Plan (1) Acute bronchitis Status: Acute Plan: CXR, NEBs, Solumedrol, Antibiotics (2) Shortness of breath Status: Acute Plan: CXR, NEBs, Solumedrol, Antibiotics (3) COPD (chronic obstructive pulmonary disease) Status: Acute Qualifiers: COPD type: COPD with acute exacerbation Qualified Code(s): J44.1 - Chronic obstructive pulmonary disease with (acute) exacerbation Plan: CXR, NEBs, Solumedrol, Antibiotics (4) Right hip pain Status: Acute Plan: STEROIDS, IV TORADOL
[2017-09-16] MEDS: FORTAZ or TAZICEF VIAL INJ 1 G in NS 100 ML IV + SPIKE MINIBAG* 100 ML IV SCH ×2 (13:31→21:04)
[2017-09-16] MEDS: NS 1000 ML 1,000 ML IV SCH (17:29)
[2017-09-16] MEDS ORDERED: ZOLOFT PO ONE (19:48)
[2017-09-16] MEDS: ZOLOFT PO SCH (20:08)
[2017-09-16] MEDS: XANAX PO PRN (20:09)
[2017-09-16] MEDS: PULMICORT NEB TX 0.5 MG NEB SCH (20:56)
[2017-09-16] MEDS: NICOTINE PATCH TD SCH (21:33)
[2017-09-17] MEDS: SOLU-Medrol 40 MG VIAL IVP SCH ×3 (01:06→17:15)
[2017-09-17] MEDS: DUONEB 0.5 MG/3 MG NEB SCH ×6 (01:11→20:55)
[2017-09-17] MEDS: NORCO 5/325 MG TAB PO PRN ×4 (01:22→23:19)
[2017-09-17] MEDS ORDERED: FORTAZ or TAZICEF VIAL INJ ONE (05:13)
[2017-09-17] MEDS ORDERED: NS 100 ML IV + SPIKE MINIBAG* 100 ML IV ONE (05:13)
[2017-09-17] MEDS: FORTAZ or TAZICEF VIAL INJ 1 G in NS 100 ML IV + SPIKE MINIBAG* 100 ML IV SCH ×3 (05:26→21:09)
[2017-09-17 05:27] LABS: BASOPHILS % (AUTO) 0.2 % (0.2-1.0); HEMATOCRIT 39.1 % (36.0-47.0); HEMOGLOBIN 13.3 g/dL (12.0-16.0); LYMPHOCYTES # (AUTO) 1.6 X10^3/uL (1.3-2.9); LYMPHOCYTES % (AUTO) 7.8 % (21.0-51.0); MEAN CORPUSCULAR HEMOGLOBIN 31.4 pg (27.0-34.0); MEAN CORPUSCULAR HGB CONC 33.9 g/dL (33.0-35.0); MEAN CORPUSCULAR VOLUME 92.4 fL (80.0-100.0); MEAN PLATELET VOLUME 10.2 fL (7.4-11.0); MONOCYTES # (AUTO) 0.2 x10^3/uL (0.3-0.8); MONOCYTES % (AUTO) 1.1 % (0.0-13.0); NEUTROPHILS % (AUTO) 90.9 % (42.0-75.0); PLATELET COUNT 292 X10^3/uL (150.0-450.0); RED BLOOD COUNT 4.23 X10^6/uL (3.5-5.4); RED CELL DISTRIBUTION WIDTH 15.2 % (11.6-16.5); WHITE BLOOD COUNT 19.9 X10^3/uL (3.6-10.0)
[2017-09-17 05:38] LABS: ALANINE AMINOTRANSFERASE 19 Units/L (12-78); ALKALINE PHOSPHATASE 138 Units/L (46-116); ASPARTATE AMINO TRANSFERASE 18 Units/L (15-37); BLOOD UREA NITROGEN 11 mg/dL (7-18); CALCIUM 8.8 mg/dL (8.5-10.1); CARBON DIOXIDE 26.3 mmol/L (21-32); CHLORIDE 105 mmol/L (98-107); COR CA(FOR HYPOALB) 9.6 mg/dL (8.5-10.1); COR NA(FOR HYPERGLY) 140 mmol/L (136-145); CREATININE 0.71 mg/dL (0.55-1.02); SODIUM 139 mmol/L (136-145); TOTAL PROTEIN 7.4 g/dL (6.4-8.2); eGFR NON BLACK RACES > 60 (>60)
[2017-09-17 05:53] LABS: BAND NEUTROPHILS % 2 % (0-10); PLATELET MORPHOLOGY COMMENT NORMAL (NORMAL)
--- NOTE | 2017-09-17 06:45 | RAD ---
HISTORY: COPD Study: Chest AP portable Comparison: 09/15/2017 Findings: The heart is within normal limits in size. The laurie are normal. The lungs remain hyperinflated but fr ee of acute alveolar infiltrates. No pleural effusions are identified. The bony thorax is unremarkabl e. IMPRESSION: Lungs hyperinflated but free of acute infiltrates, consistent with COPD in the appropriate clinical s etting and unchanged from the prior examination Reported By:
[2017-09-17] MEDS ORDERED: TUSSIONEX PENNKINETIC SUSP ONE (08:30)
[2017-09-17] MEDS: CELEBREX PO SCH ×2 (08:33→20:50)
[2017-09-17] MEDS: ZITHROMAX INJ 500 MG VIAL 500 MG in NS 250 ML IV 250 ML IV SCH (08:33)
[2017-09-17] MEDS: FLEXERIL TAB 10 MG PO SCH ×2 (08:33→20:48)
[2017-09-17] MEDS: EFFEXOR XR 75 MG CAP PO SCH (08:33)
[2017-09-17] MEDS: NICOTINE PATCH TD SCH (08:33)
[2017-09-17] MEDS: NS 1000 ML 1,000 ML IV SCH ×2 (08:36→17:43)
[2017-09-17] MEDS: XANAX PO PRN ×2 (08:38→20:48)
[2017-09-17] MEDS: TUSSIONEX PENNKINETIC SUSP PO SCH ×2 (08:40→20:51)
[2017-09-17] MEDS: PULMICORT NEB TX 0.5 MG NEB SCH ×2 (08:50→20:55)
[2017-09-17] MEDS: TESSALON PERLES PO SCH ×3 (10:19→21:09)
[2017-09-17] MEDS: ROBITUSSIN DM PO PRN (14:09)
[2017-09-17] MEDS ORDERED: ZOLOFT PO ONE (20:00)
[2017-09-17] MEDS: AMBIEN PO PRN ×2 (20:45→20:47)
[2017-09-17] MEDS: ZOLOFT PO SCH (20:51)
[2017-09-18] MEDS: SOLU-Medrol 40 MG VIAL IVP SCH ×3 (00:42→16:54)
[2017-09-18] MEDS: DUONEB 0.5 MG/3 MG NEB SCH ×6 (01:17→21:01)
[2017-09-18 05:23] LABS: BASOPHILS # (AUTO) 0.1 X10^3/uL (0.0-0.1); BASOPHILS % (AUTO) 0.4 % (0.2-1.0); HEMOGLOBIN 12.4 g/dL (12.0-16.0); LYMPHOCYTES % (AUTO) 10.8 % (21.0-51.0); MEAN CORPUSCULAR HEMOGLOBIN 30.8 pg (27.0-34.0); MEAN CORPUSCULAR HGB CONC 33.6 g/dL (33.0-35.0); MEAN CORPUSCULAR VOLUME 91.4 fL (80.0-100.0); MEAN PLATELET VOLUME 9.5 fL (7.4-11.0); MONOCYTES # (AUTO) 0.3 x10^3/uL (0.3-0.8); MONOCYTES % (AUTO) 1.5 % (0.0-13.0); NEUTROPHILS # (AUTO) 15.8 x10^3/uL (2.2-4.8); NEUTROPHILS % (AUTO) 87.3 % (42.0-75.0); PLATELET COUNT 272 X10^3/uL (150.0-450.0); RED BLOOD COUNT 4.05 X10^6/uL (3.5-5.4); RED CELL DISTRIBUTION WIDTH 15.2 % (11.6-16.5); WHITE BLOOD COUNT 18.2 X10^3/uL (3.6-10.0)
[2017-09-18] MEDS: FORTAZ or TAZICEF VIAL INJ 1 G in NS 100 ML IV + SPIKE MINIBAG* 100 ML IV SCH ×3 (05:30→21:07)
[2017-09-18] MEDS: TESSALON PERLES PO SCH ×3 (05:30→21:07)
[2017-09-18 05:40] LABS: ALANINE AMINOTRANSFERASE 19 Units/L (12-78); ALBUMIN 2.8 g/dL (3.4-5.0); ALKALINE PHOSPHATASE 115 Units/L (46-116); ASPARTATE AMINO TRANSFERASE 21 Units/L (15-37); BLOOD UREA NITROGEN 9 mg/dL (7-18); CALCIUM 8.5 mg/dL (8.5-10.1); CARBON DIOXIDE 25.5 mmol/L (21-32); CHLORIDE 107 mmol/L (98-107); COR CA(FOR HYPOALB) 9.5 mg/dL (8.5-10.1); COR NA(FOR HYPERGLY) 142 mmol/L (136-145); CREATININE 0.56 mg/dL (0.55-1.02); SODIUM 141 mmol/L (136-145); TOTAL PROTEIN 6.7 g/dL (6.4-8.2); eGFR NON BLACK RACES > 60 (>60)
[2017-09-18] MEDS: NORCO 5/325 MG TAB PO PRN ×2 (06:21→20:29)
[2017-09-18] MEDS: TUSSIONEX PENNKINETIC SUSP PO SCH ×2 (08:48→20:29)
[2017-09-18] MEDS: EFFEXOR XR 75 MG CAP PO SCH (08:49)
[2017-09-18] MEDS: FLEXERIL TAB 10 MG PO SCH ×2 (08:49→20:29)
[2017-09-18] MEDS: CELEBREX PO SCH ×2 (08:49→20:29)
[2017-09-18] MEDS: ZITHROMAX INJ 500 MG VIAL 500 MG in NS 250 ML IV 250 ML IV SCH (08:50)
[2017-09-18] MEDS: NICOTINE PATCH TD SCH (08:50)
[2017-09-18] MEDS: PULMICORT NEB TX 0.5 MG NEB SCH ×2 (09:00→21:01)
[2017-09-18] MEDS: ROBITUSSIN DM PO PRN ×2 (13:24→16:55)
[2017-09-18] MEDS ORDERED: SALINE 0.9% 3 ML NEB TX ONE (17:59)
[2017-09-18] MEDS ORDERED: ZOLOFT PO ONE (20:02)
[2017-09-18] MEDS: NS 1000 ML 1,000 ML IV SCH (20:28)
[2017-09-18] MEDS: ZOLOFT PO SCH (20:29)
[2017-09-18] MEDS: XANAX PO PRN (20:30)
[2017-09-19] MEDS: SOLU-Medrol 40 MG VIAL IVP SCH (00:23)
[2017-09-19] MEDS: DUONEB 0.5 MG/3 MG NEB SCH ×6 (01:39→20:55)
[2017-09-19] MEDS: FORTAZ or TAZICEF VIAL INJ 1 G in NS 100 ML IV + SPIKE MINIBAG* 100 ML IV SCH ×3 (05:10→21:58)
[2017-09-19] MEDS: TESSALON PERLES PO SCH ×3 (05:10→21:22)
--- NOTE | 2017-09-19 06:11 | RAD ---
Examination: Portable AP chest History: SOB Comparison reference 09/17/2017 Findings: Continued normal heart size with no evidence for acute developing pulmonary or pleural abno rmality. Diffuse interstitial prominence may be chronic peer no pneumothorax or large pleural effusio n. Impression: No change demonstrated since 09/17/2017. Reported By:
[2017-09-19 06:40] LABS: BASOPHILS % (AUTO) 0.2 % (0.2-1.0); HEMATOCRIT 38.5 % (36.0-47.0); HEMOGLOBIN 12.8 g/dL (12.0-16.0); LYMPHOCYTES # (AUTO) 2.1 X10^3/uL (1.3-2.9); LYMPHOCYTES % (AUTO) 13.4 % (21.0-51.0); MEAN CORPUSCULAR HGB CONC 33.3 g/dL (33.0-35.0); MEAN CORPUSCULAR VOLUME 92.9 fL (80.0-100.0); MEAN PLATELET VOLUME 9.8 fL (7.4-11.0); MONOCYTES # (AUTO) 0.2 x10^3/uL (0.3-0.8); MONOCYTES % (AUTO) 1.6 % (0.0-13.0); NEUTROPHILS % (AUTO) 84.8 % (42.0-75.0); PLATELET COUNT 281 X10^3/uL (150.0-450.0); RED BLOOD COUNT 4.14 X10^6/uL (3.5-5.4); RED CELL DISTRIBUTION WIDTH 15.3 % (11.6-16.5); WHITE BLOOD COUNT 15.3 X10^3/uL (3.6-10.0)
[2017-09-19 06:48] LABS: ALANINE AMINOTRANSFERASE 27 Units/L (12-78); ALBUMIN 2.8 g/dL (3.4-5.0); ALKALINE PHOSPHATASE 110 Units/L (46-116); ASPARTATE AMINO TRANSFERASE 18 Units/L (15-37); BLOOD UREA NITROGEN 12 mg/dL (7-18); CALCIUM 8.5 mg/dL (8.5-10.1); CARBON DIOXIDE 28.8 mmol/L (21-32); CHLORIDE 105 mmol/L (98-107); COR CA(FOR HYPOALB) 9.5 mg/dL (8.5-10.1); COR NA(FOR HYPERGLY) 142 mmol/L (136-145); CREATININE 0.68 mg/dL (0.55-1.02); SODIUM 141 mmol/L (136-145); TOTAL PROTEIN 6.9 g/dL (6.4-8.2); eGFR NON BLACK RACES > 60 (>60)
[2017-09-19] MEDS: NS 1000 ML 1,000 ML IV SCH ×2 (07:00→17:01)
[2017-09-19] MEDS: FLEXERIL TAB 10 MG PO SCH ×2 (09:47→20:49)
[2017-09-19] MEDS: NICOTINE PATCH TD SCH (09:47)
[2017-09-19] MEDS: EFFEXOR XR 75 MG CAP PO SCH (09:47)
[2017-09-19] MEDS: CELEBREX PO SCH ×2 (09:47→20:44)
[2017-09-19] MEDS: XANAX PO PRN (09:48)
[2017-09-19] MEDS: TUSSIONEX PENNKINETIC SUSP PO SCH ×2 (09:48→20:49)
[2017-09-19] MEDS: ZITHROMAX INJ 500 MG VIAL 500 MG in NS 250 ML IV 250 ML IV SCH (09:48)
[2017-09-19] MEDS: PULMICORT NEB TX 0.5 MG NEB SCH ×2 (09:52→20:55)
[2017-09-19] MEDS ORDERED: Atrovent NEB TX 0.02% NEB SCH (10:00)
[2017-09-19] MEDS: PEPCID 20 MG IV PREMIX* 20 MG/50 ML BAG IV SCH ×2 (10:55→20:19)
[2017-09-19] MEDS: LEVSIN/MAALOX/LIDOC VISC PO SCH ×5 (10:55→20:21)
[2017-09-19] MEDS: PROTONIX INJ 40 MG VIAL IVP SCH ×2 (10:55→20:49)
--- NOTE | 2017-09-19 18:14 | PCM.PROG ---
Progress Note - Progress Note for Day of Date of Exam: 09/17/17 - Subjective Subjective: WAS ADMITTED FOR COPD EXACERBATION WITH ACUTE BRONCHITIS. TODAY, SHE IS ALERT AND ORIENTED, LYING IN BED ON MORNING ROUNDS. SHE CONTINUES WITH COMPLAINTS OF SHORTNESS OF BREATH AND A NON-PRODUCTIVE COUGH. SHE REPORTS THAT SHORTNESS OF BREATH IS WORSE ON EXERTION. ON EXAMINATION , BILATERAL LUNGS ARE NOTED WITH SCATTERED WHEEZING THROUGHOUT. HER VITALS TODAY ARE 98.6-77-20-95%-113/57. ABNORMAL LABS INCLUDE THE FOLLOWING: WBC 19.9, GLUCOSE 125, TOTAL BILI 0.10, ALK PHOS 138, ALBUMIN 3.0. BLOOD, URINE, AND SPUTUM CUTURES ARE PENDING. TODAYS CHEST XRAY REVEALS: Lungs hyperinflated but free of acute infiltrates, consistent with COPD in the appropriate clinical setting and unchanged from the prior examination. SHE IS CURRENTLY RECEIVING IV ANTIBIOTICS, RESPIRATORY TREATMENTS, AND IV STEROIDS. TODAY, WE WILL START TESSALON PERLES TID, TUSSIONEX 5ML PO Q12H, AND ATROVENT NEB TX BID. OTHERWISE, WE PLAN TO FOLLOW UP WITH AM LABS AND CONTINUE TO MONITOR PATIENT. - Past Medical Family Social History Past Med/Fam/Surg Hx: No changes since H&P Allergies: Allergies No Known Drug Allergies Allergy (Verified 02/06/17 00:21) - Review of Systems ROS: No change since H&P - Vital Signs and I&O's Vital Signs: Temperature 97.5 F Pulse Rate [Right Radial] 82 Pulse Rate 84 Respiratory Rate 20 Blood Pressure [Right Arm] 117/55 Blood Pressure [Left Arm] 122/67 Blood Pressure 139/81 O2 Sat by Pulse Oximetry 93 Intake and Output: Intake & Output 09/17/17 09/18/17 09/19/17 09/20/17 11:59 11:59 11:59 11:59 Intake Total 2220 / 2220 4393 / 4393 2380 / 2380 1310 / 1310 Output Total 0 / 0 Balance 2220 / 2220 4393 / 4393 2380 / 2380 1310 / 1310 - Physical Exam Oriented: Normal Eyes: Normal Ear: Normal Nose: Normal Throat: Normal Respiratory: Right, Left, Generalized, Diminished, Wheezes Cardiovascular: Normal : Normal Auscultation: Bowel Sounds: Normal Palpation: Normal Tenderness: Normal Skin: Normal Musculoskeletal: Normal, Hip (RIGHT) Psychiatric: Normal Mood Description: Calm Affect: Normal Speech Pattern: Clear, Appropriate - Laboratory and Diagnostics Result Diagrams: 09/19/17 05:55 09/19/17 05:55 Labs: 09/16/17 05:39 Sputum - Expectorated Sputum Sputum Culture - Final Stenotrophomonas Maltophilia 09/16/17 05:39 Sputum - Expectorated Sputum - Final 09/15/17 17:13 Blood Blood Culture - Preliminary 09/15/17 17:56 Urine,Clean Catch Urine Culture - Final Laboratory WBC 15.3 X10^3/uL (3.6-10.0) H 09/19/17 05:55 RBC 4.14 X10^6/uL (3.5-5.4) 09/19/17 05:55 Hgb 12.8 g/dL (12.0-16.0) 09/19/17 05:55 Hct 38.5 % (36.0-47.0) 09/19/17 05:55 MCV 92.9 fL (80.0-100.0) 09/19/17 05:55 MCH 31.0 pg (27.0-34.0) 09/19/17 05:55 MCHC 33.3 g/dL (33.0-35.0) 09/19/17 05:55 RDW 15.3 % (11.6-16.5) 09/19/17 05:55 Plt Count 281 X10^3/uL (150.0-450.0) 09/19/17 05:55 Plt Count Comment Adequate (ADEQUATE) 09/17/17 04:13 MPV 9.8 fL (7.4-11.0) 09/19/17 05:55 Neut % (Auto) 84.8 % (42.0-75.0) H 09/19/17 05:55 Lymph % (Auto) 13.4 % (21.0-51.0) L 09/19/17 05:55 [place] % (Auto) 1.6 % (0.0-13.0) 09/19/17 05:55 Eos % (Auto) 0.0 % (0.9-2.9) L 09/19/17 05:55 Baso % (Auto) 0.2 % (0.2-1.0) 09/19/17 05:55 Neut # (Auto) 13.0 x10^3/uL (2.2-4.8) H 09/19/17 05:55 Lymph # (Auto) 2.1 X10^3/uL (1.3-2.9) 09/19/17 05:55 [place] # (Auto) 0.2 x10^3/uL (0.3-0.8) L 09/19/17 05:55 Eos # (Auto) 0.0 x10^3/uL (0.0-0.2) 09/19/17 05:55 Baso # (Auto) 0.0 X10^3/uL (0.0-0.1) 09/19/17 05:55 Absolute Nucleated RBC 0.0 /100WBC 09/19/17 05:55 Total Counted 100 09/17/17 04:13 Neutrophils % (Manual) 88 % (39-76) H 09/17/17 04:13 Band Neutrophils % 2 % (0-10) 09/17/17 04:13 Lymphocytes % (Manual) 9 % (13-43) L 09/17/17 04:13 Monocytes % (Manual) 1 % (4-9) L 09/17/17 04:13 Plt Morphology Comment Normal (NORMAL) 09/17/17 04:13 RBC Morphology Normal (NORMAL) 09/17/17 04:13 Sample Site Merged With [facility] 09/15/17 17:05 ABG pH 7.420 (7.35-7.45) 09/15/17 17:05 ABG pCO2 39.0 mmHg (35.0-45.0) 09/15/17 17:05 ABG pO2 114.0 mmHg (80.0-100.0) H 09/15/17 17:05 ABG HCO3 25.3 mmol/L (22-26) 09/15/17 17:05 ABG O2 Saturation 99.0 % (90-100) 09/15/17 17:05 ABG Base Excess 0.8 mmol/L (-2.0-2.0) 09/15/17 17:05 Ravindra Test Pos 09/15/17 17:05 A-a Gradient 94.0 mmHg 09/15/17 17:05 FiO2 36.000 09/15/17 17:05 Blood Gas Comments [facility] 09/15/17 17:05 Sodium 141 mmol/L (136-145) 09/19/17 05:55 Corrected Sodium 142 mmol/L (136-145) 09/19/17 05:55 Potassium 4.0 mmol/L (3.5-5.1) 09/19/17 05:55 Chloride 105 mmol/L (98-107) 09/19/17 05:55 Carbon Dioxide 28.8 mmol/L (21-32) 09/19/17 05:55 BUN 12 mg/dL (7-18) 09/19/17 05:55 Creatinine 0.68 mg/dL (0.55-1.02) 09/19/17 05:55 Est GFR (MDRD) Af Amer > 60 (>60) 09/19/17 05:55 Est GFR (MDRD) Non-Af > 60 (>60) 09/19/17 05:55 Glucose 141 mg/dL (65-99) H 09/19/17 05:55 Calcium 8.5 mg/dL (8.5-10.1) 09/19/17 05:55 Corrected Calcium 9.5 mg/dL (8.5-10.1) 09/19/17 05:55 Magnesium 2.1 mg/dL (1.7-2.9) 09/15/17 17:13 Total Bilirubin 0.10 mg/dL (0.2-1.0) L 09/19/17 05:55 AST 18 Units/L (15-37) 09/19/17 05:55 ALT 27 Units/L (12-78) 09/19/17 05:55 Alkaline Phosphatase 110 Units/L (46-116) 09/19/17 05:55 Total Protein 6.9 g/dL (6.4-8.2) 09/19/17 05:55 Albumin 2.8 g/dL (3.4-5.0) L 09/19/17 05:55 Globulin 4.1 g/dL (2.5-4.5) 09/19/17 05:55 Albumin/Globulin Ratio 0.7 Ratio (1.1-2.1) L 09/19/17 05:55 Specimen Type Clean catch urine 09/15/17 16:55 Urine Color Yellow (YELLOW) 09/15/17 16:55 Urine Appearance Clear (CLEAR) 09/15/17 16:55 Urine pH 6.0 (5.0 - 8.0) 09/15/17 16:55 Ur Specific [place] 1.010 (1.000-1.030) 09/15/17 16:55 Urine Protein Negative (NEGATIVE) 09/15/17 16:55 Urine Glucose (UA) Negative (NEGATIVE) 09/15/17 16:55 Urine Ketones Negative (NEGATIVE) 09/15/17 16:55 Urine Occult Blood Negative (NEGATIVE) 09/15/17 16:55 Urine Nitrite Negative (NEGATIVE) 09/15/17 16:55 Urine Bilirubin Negative (NEGATIVE) 09/15/17 16:55 Urine Urobilinogen Normal (NORMAL) 09/15/17 16:55 Ur Leukocyte Esterase Negative (NEGATIVE) 09/15/17 16:55
[2017-09-19] MEDS: NORCO 5/325 MG TAB PO PRN (18:23)
[2017-09-19] MEDS ORDERED: ZOLOFT PO ONE (19:49)
[2017-09-19] MEDS: LEVAQUIN PREMIX IV 750 MG 750 MG/150 ML BAG IV SCH (20:53)
[2017-09-19] MEDS: ZOLOFT PO SCH (20:53)
--- NOTE | 2017-09-19 21:53 | PCM.PROG ---
Progress Note - Progress Note for Day of Date of Exam: 09/18/17 - Subjective Subjective: WAS ADMITTED FOR COPD EXACERBATION WITH ACUTE BRONCHITIS. TODAY, SHE IS ALERT AND ORIENTED, LYING IN BED ON MORNING ROUNDS. SHE CONTINUES WITH COMPLAINTS OF SHORTNESS OF BREATH AND A NON-PRODUCTIVE COUGH. SHE REPORTS THAT SYMPTOMS HAVE SLIGHTLY IMPROVED SINCE YESTERDAY. ON EXAMINATION, BILATERAL LUNGS ARE NOTED WITH SCATTERED WHEEZING THROUGHOUT. HER VITALS TODAY ARE 98.2-86-20-92%NC,115/60. ABNORMAL LABS INCLUDE THE FOLLOWING: WBC 18.2, GLUCOSE 136, TOTAL BILI 0.10, ALBUMIN 2.8. BLOOD, URINE, AND SPUTUM CUTURES ARE PENDING. SHE IS CURRENTLY RECEIVING IV ANTIBIOTICS, RESPIRATORY TREATMENTS, AND IV STEROIDS. WE WILL CONTINUE WITH CURRENT PLAN OF CARE TODAY. OTHERWISE, WE PLAN TO FOLLOW UP WITH AM LABS AND CONTINUE TO MONITOR PATIENT. - Past Medical Family Social History Past Med/Fam/Surg Hx: No changes since H&P Allergies: Allergies No Known Drug Allergies Allergy (Verified 02/06/17 00:21) - Review of Systems ROS: No change since H&P - Vital Signs and I&O's Vital Signs: Temperature 98.1 F Pulse Rate [Right Radial] 90 Pulse Rate 85 Respiratory Rate 20 Blood Pressure [Right Arm] 125/65 Blood Pressure [Left Arm] 122/67 Blood Pressure 139/81 O2 Sat by Pulse Oximetry 90 Intake and Output: Intake & Output 09/17/17 09/18/17 09/19/17 09/20/17 11:59 11:59 11:59 11:59 Intake Total 2220 / 2220 4393 / 4393 2380 / 2380 1310 / 1310 Output Total 0 / 0 Balance 2220 / 2220 4393 / 4393 2380 / 2380 1310 / 1310 - Physical Exam Oriented: Normal Eyes: Normal Ear: Normal Nose: Normal Throat: Normal Respiratory: Right, Left, Generalized, Diminished, Wheezes Cardiovascular: Normal : Normal Auscultation: Bowel Sounds: Normal Tenderness: Normal Skin: Normal Musculoskeletal: Normal, Hip (RIGHT) Psychiatric: Normal Mood Description: Calm Affect: Normal Speech Pattern: Clear, Appropriate - Laboratory and Diagnostics Result Diagrams: 09/19/17 05:55 09/19/17 05:55 Labs: 09/16/17 05:39 Sputum - Expectorated Sputum Sputum Culture - Final Stenotrophomonas Maltophilia 09/16/17 05:39 Sputum - Expectorated Sputum - Final 09/15/17 17:13 Blood Blood Culture - Preliminary 09/15/17 17:56 Urine,Clean Catch Urine Culture - Final Laboratory WBC 15.3 X10^3/uL (3.6-10.0) H 09/19/17 05:55 RBC 4.14 X10^6/uL (3.5-5.4) 09/19/17 05:55 Hgb 12.8 g/dL (12.0-16.0) 09/19/17 05:55 Hct 38.5 % (36.0-47.0) 09/19/17 05:55 MCV 92.9 fL (80.0-100.0) 09/19/17 05:55 MCH 31.0 pg (27.0-34.0) 09/19/17 05:55 MCHC 33.3 g/dL (33.0-35.0) 09/19/17 05:55 RDW 15.3 % (11.6-16.5) 09/19/17 05:55 Plt Count 281 X10^3/uL (150.0-450.0) 09/19/17 05:55 Plt Count Comment Adequate (ADEQUATE) 09/17/17 04:13 MPV 9.8 fL (7.4-11.0) 09/19/17 05:55 Neut % (Auto) 84.8 % (42.0-75.0) H 09/19/17 05:55 Lymph % (Auto) 13.4 % (21.0-51.0) L 09/19/17 05:55 [place] % (Auto) 1.6 % (0.0-13.0) 09/19/17 05:55 Eos % (Auto) 0.0 % (0.9-2.9) L 09/19/17 05:55 Baso % (Auto) 0.2 % (0.2-1.0) 09/19/17 05:55 Neut # (Auto) 13.0 x10^3/uL (2.2-4.8) H 09/19/17 05:55 Lymph # (Auto) 2.1 X10^3/uL (1.3-2.9) 09/19/17 05:55 [place] # (Auto) 0.2 x10^3/uL (0.3-0.8) L 09/19/17 05:55 Eos # (Auto) 0.0 x10^3/uL (0.0-0.2) 09/19/17 05:55 Baso # (Auto) 0.0 X10^3/uL (0.0-0.1) 09/19/17 05:55 Absolute Nucleated RBC 0.0 /100WBC 09/19/17 05:55 Total Counted 100 09/17/17 04:13 Neutrophils % (Manual) 88 % (39-76) H 09/17/17 04:13 Band Neutrophils % 2 % (0-10) 09/17/17 04:13 Lymphocytes % (Manual) 9 % (13-43) L 09/17/17 04:13 Monocytes % (Manual) 1 % (4-9) L 09/17/17 04:13 Plt Morphology Comment Normal (NORMAL) 09/17/17 04:13 RBC Morphology Normal (NORMAL) 09/17/17 04:13 Sample Site [facility] 09/15/17 17:05 ABG pH 7.420 (7.35-7.45) 09/15/17 17:05 ABG pCO2 39.0 mmHg (35.0-45.0) 09/15/17 17:05 ABG pO2 114.0 mmHg (80.0-100.0) H 09/15/17 17:05 ABG HCO3 25.3 mmol/L (22-26) 09/15/17 17:05 ABG O2 Saturation 99.0 % (90-100) 09/15/17 17:05 ABG Base Excess 0.8 mmol/L (-2.0-2.0) 09/15/17 17:05 Ravindra Test Pos 09/15/17 17:05 A-a Gradient 94.0 mmHg 09/15/17 17:05 FiO2 36.000 09/15/17 17:05 Blood Gas Comments [facility] 09/15/17 17:05 Sodium 141 mmol/L (136-145) 09/19/17 05:55 Corrected Sodium 142 mmol/L (136-145) 09/19/17 05:55 Potassium 4.0 mmol/L (3.5-5.1) 09/19/17 05:55 Chloride 105 mmol/L (98-107) 09/19/17 05:55 Carbon Dioxide 28.8 mmol/L (21-32) 09/19/17 05:55 BUN 12 mg/dL (7-18) 09/19/17 05:55 Creatinine 0.68 mg/dL (0.55-1.02) 09/19/17 05:55 Est GFR (MDRD) Af Amer > 60 (>60) 09/19/17 05:55 Est GFR (MDRD) Non-Af > 60 (>60) 09/19/17 05:55 Glucose 141 mg/dL (65-99) H 09/19/17 05:55 Calcium 8.5 mg/dL (8.5-10.1) 09/19/17 05:55 Corrected Calcium 9.5 mg/dL (8.5-10.1) 09/19/17 05:55 Magnesium 2.1 mg/dL (1.7-2.9) 09/15/17 17:13 Total Bilirubin 0.10 mg/dL (0.2-1.0) L 09/19/17 05:55 AST 18 Units/L (15-37) 09/19/17 05:55 ALT 27 Units/L (12-78) 09/19/17 05:55 Alkaline Phosphatase 110 Units/L (46-116) 09/19/17 05:55 Total Protein 6.9 g/dL (6.4-8.2) 09/19/17 05:55 Albumin 2.8 g/dL (3.4-5.0) L 09/19/17 05:55 Globulin 4.1 g/dL (2.5-4.5) 09/19/17 05:55 Albumin/Globulin Ratio 0.7 Ratio (1.1-2.1) L 09/19/17 05:55 Specimen Type Clean catch urine 09/15/17 16:55 Urine Color Yellow (YELLOW) 09/15/17 16:55 Urine Appearance Clear (CLEAR) 09/15/17 16:55 Urine pH 6.0 (5.0 - 8.0) 09/15/17 16:55 Ur Specific [place] 1.010 (1.000-1.030) 09/15/17 16:55 Urine Protein Negative (NEGATIVE) 09/15/17 16:55 Urine Glucose (UA) Negative (NEGATIVE) 09/15/17 16:55 Urine Ketones Negative (NEGATIVE) 09/15/17 16:55 Urine Occult Blood Negative (NEGATIVE) 09/15/17 16:55 Urine Nitrite Negative (NEGATIVE) 09/15/17 16:55 Urine Bilirubin Negative (NEGATIVE) 09/15/17 16:55 Urine Urobilinogen Normal (NORMAL) 09/15/17 16:55 Ur Leukocyte Esterase Negative (NEGATIVE) 09/15/17 16:55
--- NOTE | 2017-09-20 00:13 | PCM.PROG ---
Progress Note - Progress Note for Day of Date of Exam: 09/19/17 - Subjective Subjective: WAS ADMITTED FOR COPD EXACERBATION WITH ACUTE BRONCHITIS. TODAY, SHE IS ALERT AND ORIENTED, LYING IN BED ON MORNING ROUNDS. SHE CONTINUES WITH COMPLAINTS OF SHORTNESS OF BREATH AND A NON-PRODUCTIVE COUGH. SHE REPORTS THAT SYMPTOMS HAVE SLIGHTLY IMPROVED SINCE YESTERDAY. ON EXAMINATION, BILATERAL LUNGS ARE NOTED WITH SCATTERED WHEEZING THROUGHOUT. HER VITALS TODAY ARE 97.9-76-20-95%NC-116/55. ABNORMAL LABS INCLUDE THE FOLLOWING: WBC 15.3, GLUCOSE 141, TOTAL BILI 0.10, ALBUMIN 2.8. SPUTUM CULTURE REPORTS GROWTH OF STENOTROPHOMONAS MALTOPHILIA. SHE IS CURRENTLY RECEIVING IV ANTIBIOTICS, RESPIRATORY TREATMENTS, AND IV STEROIDS. WE WILL CONTINUE WITH CURRENT PLAN OF CARE TODAY AND START LEVAQUIN 750MG IV DAILY. WE WILL ALSO START PULMICORT AND ATROVENT NEB TX, PEPCID, PROTONIX, AND GI COCKTAIL. OTHERWISE, WE PLAN TO FOLLOW UP WITH AM LABS AND CONTINUE TO MONITOR PATIENT. - Past Medical Family Social History Past Med/Fam/Surg Hx: No changes since H&P Allergies: Allergies No Known Drug Allergies Allergy (Verified 02/06/17 00:21) - Review of Systems ROS: No change since H&P - Vital Signs and I&O's Vital Signs: Temperature 97.8 F Pulse Rate [Right Radial] 85 Pulse Rate 85 Respiratory Rate 20 Blood Pressure [Right Arm] 141/71 Blood Pressure [Left Arm] 122/67 Blood Pressure 139/81 O2 Sat by Pulse Oximetry 96 Intake and Output: Intake & Output 09/17/17 09/18/17 09/19/17 09/20/17 11:59 11:59 11:59 11:59 Intake Total 2220 / 2220 4393 / 4393 2380 / 2380 2490 / 2490 Output Total 0 / 0 Balance 2220 / 2220 4393 / 4393 2380 / 2380 2490 / 2490 - Physical Exam Oriented: Normal Eyes: Normal Ear: Normal Nose: Normal Throat: Normal Respiratory: Right, Left, Generalized, Diminished, Wheezes Cardiovascular: Normal : Normal Auscultation: Bowel Sounds: Normal Palpation: Normal Tenderness: Normal Skin: Normal Musculoskeletal: Normal, Hip (RIGHT) Psychiatric: Normal Mood Description: Calm Affect: Normal Speech Pattern: Clear, Appropriate - Laboratory and Diagnostics Result Diagrams: 09/19/17 05:55 09/19/17 05:55 Labs: 09/16/17 05:39 Sputum - Expectorated Sputum Sputum Culture - Final Stenotrophomonas Maltophilia 09/16/17 05:39 Sputum - Expectorated Sputum - Final 09/15/17 17:13 Blood Blood Culture - Preliminary 09/15/17 17:56 Urine,Clean Catch Urine Culture - Final Laboratory WBC 15.3 X10^3/uL (3.6-10.0) H 09/19/17 05:55 RBC 4.14 X10^6/uL (3.5-5.4) 09/19/17 05:55 Hgb 12.8 g/dL (12.0-16.0) 09/19/17 05:55 Hct 38.5 % (36.0-47.0) 09/19/17 05:55 MCV 92.9 fL (80.0-100.0) 09/19/17 05:55 MCH 31.0 pg (27.0-34.0) 09/19/17 05:55 MCHC 33.3 g/dL (33.0-35.0) 09/19/17 05:55 RDW 15.3 % (11.6-16.5) 09/19/17 05:55 Plt Count 281 X10^3/uL (150.0-450.0) 09/19/17 05:55 Plt Count Comment Adequate (ADEQUATE) 09/17/17 04:13 MPV 9.8 fL (7.4-11.0) 09/19/17 05:55 Neut % (Auto) 84.8 % (42.0-75.0) H 09/19/17 05:55 Lymph % (Auto) 13.4 % (21.0-51.0) L 09/19/17 05:55 [place] % (Auto) 1.6 % (0.0-13.0) 09/19/17 05:55 Eos % (Auto) 0.0 % (0.9-2.9) L 09/19/17 05:55 Baso % (Auto) 0.2 % (0.2-1.0) 09/19/17 05:55 Neut # (Auto) 13.0 x10^3/uL (2.2-4.8) H 09/19/17 05:55 Lymph # (Auto) 2.1 X10^3/uL (1.3-2.9) 09/19/17 05:55 [place] # (Auto) 0.2 x10^3/uL (0.3-0.8) L 09/19/17 05:55 Eos # (Auto) 0.0 x10^3/uL (0.0-0.2) 09/19/17 05:55 Baso # (Auto) 0.0 X10^3/uL (0.0-0.1) 09/19/17 05:55 Absolute Nucleated RBC 0.0 /100WBC 09/19/17 05:55 Total Counted 100 09/17/17 04:13 Neutrophils % (Manual) 88 % (39-76) H 09/17/17 04:13 Band Neutrophils % 2 % (0-10) 09/17/17 04:13 Lymphocytes % (Manual) 9 % (13-43) L 09/17/17 04:13 Monocytes % (Manual) 1 % (4-9) L 09/17/17 04:13 Plt Morphology Comment Normal (NORMAL) 09/17/17 04:13 RBC Morphology Normal (NORMAL) 09/17/17 04:13 [facility] 09/15/17 17:05 ABG pH 7.420 (7.35-7.45) 09/15/17 17:05 ABG pCO2 39.0 mmHg (35.0-45.0) 09/15/17 17:05 ABG pO2 114.0 mmHg (80.0-100.0) H 09/15/17 17:05 ABG HCO3 25.3 mmol/L (22-26) 09/15/17 17:05 ABG O2 Saturation 99.0 % (90-100) 09/15/17 17:05 ABG Base Excess 0.8 mmol/L (-2.0-2.0) 09/15/17 17:05 Ravindra Test Pos 09/15/17 17:05 A-a Gradient 94.0 mmHg 09/15/17 17:05 FiO2 36.000 09/15/17 17:05 Blood Gas Comments [facility] 09/15/17 17:05 Sodium 141 mmol/L (136-145) 09/19/17 05:55 Corrected Sodium 142 mmol/L (136-145) 09/19/17 05:55 Potassium 4.0 mmol/L (3.5-5.1) 09/19/17 05:55 Chloride 105 mmol/L (98-107) 09/19/17 05:55 Carbon Dioxide 28.8 mmol/L (21-32) 09/19/17 05:55 BUN 12 mg/dL (7-18) 09/19/17 05:55 Creatinine 0.68 mg/dL (0.55-1.02) 09/19/17 05:55 Est GFR (MDRD) Af Amer > 60 (>60) 09/19/17 05:55 Est GFR (MDRD) Non-Af > 60 (>60) 09/19/17 05:55 Glucose 141 mg/dL (65-99) H 09/19/17 05:55 Calcium 8.5 mg/dL (8.5-10.1) 09/19/17 05:55 Corrected Calcium 9.5 mg/dL (8.5-10.1) 09/19/17 05:55 Magnesium 2.1 mg/dL (1.7-2.9) 09/15/17 17:13 Total Bilirubin 0.10 mg/dL (0.2-1.0) L 09/19/17 05:55 AST 18 Units/L (15-37) 09/19/17 05:55 ALT 27 Units/L (12-78) 09/19/17 05:55 Alkaline Phosphatase 110 Units/L (46-116) 09/19/17 05:55 Total Protein 6.9 g/dL (6.4-8.2) 09/19/17 05:55 Albumin 2.8 g/dL (3.4-5.0) L 09/19/17 05:55 Globulin 4.1 g/dL (2.5-4.5) 09/19/17 05:55 Albumin/Globulin Ratio 0.7 Ratio (1.1-2.1) L 09/19/17 05:55 Specimen Type Clean catch urine 09/15/17 16:55 Urine Color Yellow (YELLOW) 09/15/17 16:55 Urine Appearance Clear (CLEAR) 09/15/17 16:55 Urine pH 6.0 (5.0 - 8.0) 09/15/17 16:55 Ur Specific [place] 1.010 (1.000-1.030) 09/15/17 16:55 Urine Protein Negative (NEGATIVE) 09/15/17 16:55 Urine Glucose (UA) Negative (NEGATIVE) 09/15/17 16:55 Urine Ketones Negative (NEGATIVE) 09/15/17 16:55 Urine Occult Blood Negative (NEGATIVE) 09/15/17 16:55 Urine Nitrite Negative (NEGATIVE) 09/15/17 16:55 Urine Bilirubin Negative (NEGATIVE) 09/15/17 16:55 Urine Urobilinogen Normal (NORMAL) 09/15/17 16:55 Ur Leukocyte Esterase Negative (NEGATIVE) 09/15/17 16:55
[2017-09-20] MEDS: DUONEB 0.5 MG/3 MG NEB SCH ×3 (00:30→09:37)
[2017-09-20 05:15] LABS: BASOPHILS # (AUTO) 0.1 X10^3/uL (0.0-0.1); BASOPHILS % (AUTO) 0.7 % (0.2-1.0); EOSINOPHILS # (AUTO) 0.2 x10^3/uL (0.0-0.2); EOSINOPHILS % (AUTO) 1.6 % (0.9-2.9); HEMATOCRIT 37.4 % (36.0-47.0); HEMOGLOBIN 12.6 g/dL (12.0-16.0); LYMPHOCYTES # (AUTO) 6.5 X10^3/uL (1.3-2.9); MEAN CORPUSCULAR HEMOGLOBIN 31.1 pg (27.0-34.0); MEAN CORPUSCULAR HGB CONC 33.6 g/dL (33.0-35.0); MEAN CORPUSCULAR VOLUME 92.5 fL (80.0-100.0); MEAN PLATELET VOLUME 9.6 fL (7.4-11.0); MONOCYTES # (AUTO) 0.8 x10^3/uL (0.3-0.8); MONOCYTES % (AUTO) 5.8 % (0.0-13.0); NEUTROPHILS # (AUTO) 6.2 x10^3/uL (2.2-4.8); NEUTROPHILS % (AUTO) 44.9 % (42.0-75.0); PLATELET COUNT 281 X10^3/uL (150.0-450.0); RED BLOOD COUNT 4.04 X10^6/uL (3.5-5.4); RED CELL DISTRIBUTION WIDTH 15.2 % (11.6-16.5); WHITE BLOOD COUNT 13.9 X10^3/uL (3.6-10.0)
[2017-09-20] MEDS: FORTAZ or TAZICEF VIAL INJ 1 G in NS 100 ML IV + SPIKE MINIBAG* 100 ML IV SCH (05:21)
[2017-09-20] MEDS: TESSALON PERLES PO SCH (05:22)
[2017-09-20 05:33] LABS: ALANINE AMINOTRANSFERASE 22 Units/L (12-78); ALBUMIN 2.4 g/dL (3.4-5.0); ALKALINE PHOSPHATASE 98 Units/L (46-116); ASPARTATE AMINO TRANSFERASE 19 Units/L (15-37); BLOOD UREA NITROGEN 14 mg/dL (7-18); CALCIUM 7.9 mg/dL (8.5-10.1); CARBON DIOXIDE 30.2 mmol/L (21-32); CHLORIDE 106 mmol/L (98-107); COR CA(FOR HYPOALB) 9.2 mg/dL (8.5-10.1); CREATININE 0.73 mg/dL (0.55-1.02); SODIUM 142 mmol/L (136-145); eGFR NON BLACK RACES > 60 (>60)
[2017-09-20] MEDS: NORCO 5/325 MG TAB PO PRN (06:12)
--- NOTE | 2017-09-20 06:36 | RAD ---
Examination: Portable AP chest History: SOB Comparison reference 09/19/2017 Findings: Continued normal heart size with diffuse interstitial pulmonary prominence most consistent with chronic peribronchial thickening. No consolidation, pneumothorax or large pleural effusion. Impression: No change or obvious acute abnormality compared to 1 day prior. Reported By:
[2017-09-20 07:55] VITALS: BP 115/58
[2017-09-20] MEDS: LEVAQUIN PREMIX IV 750 MG 750 MG/150 ML BAG IV SCH (08:48)
[2017-09-20] MEDS: NICOTINE PATCH TD SCH (08:48)
[2017-09-20] MEDS: PEPCID 20 MG IV PREMIX* 20 MG/50 ML BAG IV SCH ×2 (08:48→11:10)
[2017-09-20] MEDS: CELEBREX PO SCH (08:49)
[2017-09-20] MEDS: PROTONIX INJ 40 MG VIAL IVP SCH (08:49)
[2017-09-20] MEDS: FLEXERIL TAB 10 MG PO SCH (08:50)
[2017-09-20] MEDS: EFFEXOR XR 75 MG CAP PO SCH (08:50)
[2017-09-20] MEDS: LEVSIN/MAALOX/LIDOC VISC PO SCH (08:51)
[2017-09-20] MEDS: TUSSIONEX PENNKINETIC SUSP PO SCH (08:52)
[2017-09-20] MEDS: XANAX PO PRN (09:02)
[2017-09-20] MEDS: PULMICORT NEB TX 0.5 MG NEB SCH (09:37)
--- NOTE | 2017-09-30 14:11 | DR.CARTERD ---
- Discharge Summary for: Discharge Summary for Date of:: 09/20/17 - Admission Date Date of Admission: 09/15/17 - Admission Diagnoses Admission Diagnosis: (1) COPD exacerbation (2) Shortness of breath (3) Acute bronchitis - Discharge Date Discharge Date: 09/20/17 - Discharge Diagnoses Discharge Diagnosis: (1) COPD exacerbation (2) Stenotrophomonas maltophilia infection (3) Shortness of breath (4) Acute bronchitis - Hospital Course Hospital Course: Day one, Patient presented to the [facility] as a direct admit from the services of Dr. Castro with acute exacerbation of COPD. Patient is a 61 year old that presented to the office for evaluation of medical problems. Patient complained of increasing SOB over the past few days. She stated that she had been doing neb treatments, inhalers, and Robitussin without relief or improvement of symptoms. She reported dry cough that caused her to lose her breath. She stated she tried to work this day. She admitted to having to sit down and rest three times while trying to get ready for work. O2 saturation was 93% on room air in the office. A Chest x-ray was obtained on arrival to the hospital and the impression read: COPD change with bronchitis. EKG showed sinus rhythm with a heart rate of 76. Labs were drawn and results showed abnormal values of: WBC 12.3, Potassium 3.4, and Glucose 144. Blood gas revealed a po2 of 114.0. Patient noted to have shortness of breath on exertion along with coarse breath sounds with wheezing on auscultation. Patient required supplemental oxygen at 2l per nasal cannula. We continued to evaluate and treat patient for acute exacerbation of COPD. Patient started on Duoneb Treatments Q4H along with Proventil NEB TXs QID PRN. We also started Ceftazidime 1GM IV Q8H for antibiotic therapy. NS 1000 ML IV @ 20 MLS/HR will be given for gentle IV hydration. Day two, Patient continued with reports of shortness of breath. Patient noted with continued dyspnea with exertion. Patient reported she lost her breath with talking or walking. Patient continued to have nonproductive cough. On auscultation of lung gallardo patient noted with wheezing throughout with diminished breath sounds. Patient noted with a productive cough with thick, creamy, yellow sputum noted. Patient with new complaint of right hip pain. Patient started on IV steroids and IV Toradol for pain. Treatment was continued. Abnormal Labs: WBC 11.0, Glucose 109, Calcium 8.2, Alk Phos 136, Albumin 2.9, A/G Ratio 0.7. Sputum Culture Pending; Gram Stain Gram Pos Cocci Rare, Gram Neg Rods Rare, WBC Moderate, Yeast Rare. Day three, She was alert and oriented. She continued with complaints of shortness of breath and a non-productive cough. She reported that shortness of breath was worse with exertion. Lungs noted with scattered wheezing throughout on auscultation. Vitals were: 98.6-77-20-95%-113/57. Abnormal labs were: Wbc 19.9, Glucose 125, Total Bili 0.10, Alk Phos 138, Albumin 3.0. Chest xray reported: Lungs hyperinflated but free of acute infiltrates, consistent with COPD in the appropriate clinical setting and unchanged from the prior examination. We continued IV antibiotics, respiratory treatments, supplemental oxygen, and IV steroids. We started Tessalon Perles, Tussionex, and Atrovent nebs. We continued to monitor. Day four, Patient continued treatment for COPD exacerbation and acute bronchitis. She continued with shortness of breath and a non-productive cough. She reported symptoms had slightly improved. Lungs continued with scattered wheezing throughout on auscultation. Vitals were: 98.2-86-20-92%-115/60. Abnormal labs were: Wbc 18.2, Glucose 136, Total Bili 0.10, Albumin 2.8. We continued IV antibiotics, respiratory treatments, supplemental oxygen, and IV steroids. We continued to monitor. Day five, Patient was alert and oriented. She continued with shortness of breath and a non-productive cough. She continued to report improvement of symptoms. Lungs continued with scattered wheezing throughout on auscultation. Vitals were: 97.9-76-20-95%-116/55. Abnormal labs were: Wbc 15.3, Glucose 141, Total Bili 0.10, Albumin 2.8. Sputum culture reported growth of Stenotrphomonas Maltophilia, which was sensitive to the antibiotics she was on. We continued IV antibiotics, respiratory treatments, supplemental oxygen, and IV steroids. We started Levaquin IV, Pepcid, Protonix, and GI cocktail. We continued to monitor. Day six, Patient reported she was feeling much better. Patient denied shortness of breath. She continued with an intermittent, non-productive cough. On auscultation, lungs noted with scattered rhonchi throughout. Vital signs stable. Labs wnl. We planned for discharge. Instructions for medications and follow up were discussed with patient and family, both voiced understanding. Patient discharged home in stable condition with family. Labs: Microbiology 09/16/17 05:39 Sputum - Expectorated Sputum Sputum Culture - Final 09/16/17 05:39 Sputum - Expectorated Sputum - Final Stenotrophomonas Maltophilia - Discharge Medications Discharge Medications: Home Medication List alprazolam 1 tab PO BID PRN 09/15/17 [History] celecoxib 1 cap PO BID 09/15/17 [History] cyclobenzaprine 1 tab PO BID PRN 09/15/17 [History] hydrocodone-acetaminophen 1 tab PO BID PRN 09/15/17 [History] sertraline 1 tab PO HS 09/15/17 [History] venlafaxine 1 cap PO DAILY 09/15/17 [History] budesonide-formoterol [Symbicort] 2 puff INHALATION BID #1 g 09/20/17 [Rx] Prescriptions: budesonide-formoterol [Symbicort] Jacob Oliveira Home medications albuterol sulfate [ProAir HFA] 2 puff INHALATION PRN PRN 09/29/17 glycopyrrolate-formoterol [Bevespi Aerosphere] 2 puff INHALATION BID 09/29/17 - Discharge Disposition Discharge Disposition: Patient is to follow up with NESHA Alejandra in one week.
== END 2017-09-20 11:25 | disposition home or self-care (01) | DRG 192 ==
LOC: MED/SURG
PROVIDERS: ADMIT Internal Medicine; ATTEND Internal Medicine
DX: J44.0 Chronic obstructive pulmonary disease with (acute) lower respiratory infection; B96.5 Pseudomonas (aeruginosa) (mallei) (pseudomallei) as the cause of diseases classified elsewhere; M25.551 Pain in right hip; R06.02 Shortness of breath; J20.8 Acute bronchitis due to other specified organisms; J44.1 Chronic obstructive pulmonary disease with (acute) exacerbation
CPT/HCPCS: 36415; 36600; 71010; 71020; 71045; 71046; 80048; 80053; 81003; 82803; 83735; 85025; 87040; 87070; 87077; 87086; 87186; 87205; 93005; 93010; 94640; 94669; 94760; A4222; C9113; S0028; G0378; J0456; J0713; J1956; J2920; J7030; J7050; J7620; J7626; J7644; J8499

== ENCOUNTER 2017-09-29 10:36 | Observation (INO) ==
[2017-09-29 11:50] VITALS: BMI 25.0
--- NOTE | 2017-09-29 13:22 | DR.H&P ---
H&P - History & Physical for Day of: H&P Date: 09/29/17 - Chief Complaint Chief Complaint: SOB, COUGH, WHEEZING, LOW BP - History of Present Illness History of Present Illness: 61 WF DIRECT ADMIT FROM DR MOSES OFFICE AFTER PRESENTING FOR A FOLLOW UP VISIT WITH CO CONTINUED SOB, WEAKNESS LOW BP, COUGH AND WHEEZING CONTINUED. PT UNABLE TO WORK OR DRIVE DUE TO WEAKENSS. PT WAS SEEN IN [facility] FOR PNEUMONIA ABOUT 2 WEEKS AGO AND HAS CONTINUED PO ATBX AND JET NEBS WITHOUT IMPROVEMENT IN SOB AND WEAKNESS. PT HAS PMH OF OA AND COPD. PT ADMIT FOR TREATMENT AND EVALUATION OF SOB. - Past Medical History Past Medical History: Anxiety, Arthritis, Depression Additional Medical History: SMOKER - Past Surgical History Surgical History: Appendectomy, Bowel Resection, Hysterectomy, Tonsillectomy, Other - Family History Family Medical History: Diabetes Mellitus, Cancer - Social History Does patient currently use any type of tobacco product: Yes Have you used tobacco products in the last 12 months: Yes Type of Tobacco Use: Cigarettes Alcohol Use: Occasionally Drug Use: None - Medications Home Medications: No Known Drug Allergies Allergy (Verified 02/06/17 00:21) - Review of Systems Constitutional: Fever, Chills, Weakness, Malaise Eyes: No Symptoms Reported ENT: No Symptoms Reported Respiratory: Cough, Shortness of Breath, SOB with Excertion, Wheezing Cardiovascular: Palpitations, Light Headedness Gastrointestinal: Nausea Genitourinary: No Symptoms Reported Musculoskeletal: Back Pain Skin: No Symptoms Reported Neurological: Weakness - Physical Exam Vital Signs: Temperature 97.6 F Pulse Rate [Left Brachial] 65 Pulse Rate [Right Brachial] 87 Respiratory Rate 20 Blood Pressure [Right Arm] 118/56 Blood Pressure [Left Arm] 122/67 Blood Pressure 115/58 O2 Sat by Pulse Oximetry 99 Oriented: Normal Eyes: Normal Ear: Normal Nose: Normal Throat: Normal Respiratory: Rhonchi Throughout, Wheezes Throughout, RLL Diminished, LLL Diminished Cardiovascular: Tachycardia. negative: Edema : Normal Auscultation: Bowel Sounds: Normal Palpation: Normal Tenderness: Normal Skin: Normal Musculoskeletal: Back:Lumbar Psychiatric: Anxiety Speech Pattern: Clear, Appropriate - Assessment/Plan (1) Acute bronchitis Status: Acute Plan: ADMIT, PNEUMONIA PROTOCOL. BLOOD AND SPUTUM CUTLURES. RESP CONSULT. IV ATBX, SOLU MEDROL IV. CT CHEST WITH CONTRAST. CARDIAC PROFILE, EKG ON ADMISSION, BP MONITORING (2) Shortness of breath Status: Acute (3) ARISTIDES (generalized anxiety disorder) Status: Acute (4) COPD (chronic obstructive pulmonary disease) Qualifiers: COPD type: COPD with acute exacerbation Qualified Code(s): J44.1 - Chronic obstructive pulmonary disease with (acute) exacerbation Status: Acute - Allergies Allergies/Adverse Reactions: Allergies Allergy/AdvReac Type Severity Reaction Status Date / Time No Known Drug Allergies Allergy Verified 02/06/17 00:21
[2017-09-29 13:43] LABS: BASOPHILS # (AUTO) 0.1 X10^3/uL (0.0-0.1); BASOPHILS % (AUTO) 0.6 % (0.2-1.0); EOSINOPHILS # (AUTO) 0.4 x10^3/uL (0.0-0.2); EOSINOPHILS % (AUTO) 3.4 % (0.9-2.9); HEMATOCRIT 40.6 % (36.0-47.0); HEMOGLOBIN 14.1 g/dL (12.0-16.0); LYMPHOCYTES # (AUTO) 2.6 X10^3/uL (1.3-2.9); LYMPHOCYTES % (AUTO) 21.4 % (21.0-51.0); MEAN CORPUSCULAR HEMOGLOBIN 31.5 pg (27.0-34.0); MEAN CORPUSCULAR HGB CONC 34.7 g/dL (33.0-35.0); MEAN CORPUSCULAR VOLUME 90.9 fL (80.0-100.0); MONOCYTES # (AUTO) 0.7 x10^3/uL (0.3-0.8); MONOCYTES % (AUTO) 5.9 % (0.0-13.0); NEUTROPHILS # (AUTO) 8.4 x10^3/uL (2.2-4.8); NEUTROPHILS % (AUTO) 68.7 % (42.0-75.0); PLATELET COUNT 292 X10^3/uL (150.0-450.0); RED BLOOD COUNT 4.47 X10^6/uL (3.5-5.4); RED CELL DISTRIBUTION WIDTH 14.9 % (11.6-16.5); WHITE BLOOD COUNT 12.3 X10^3/uL (3.6-10.0)
[2017-09-29 14:05] LABS: ALANINE AMINOTRANSFERASE 16 Units/L (12-78); ALBUMIN 2.7 g/dL (3.4-5.0); ALKALINE PHOSPHATASE 104 Units/L (46-116); ASPARTATE AMINO TRANSFERASE 15 Units/L (15-37); BLOOD UREA NITROGEN 9 mg/dL (7-18); CALCIUM 8.6 mg/dL (8.5-10.1); CARBON DIOXIDE 28.2 mmol/L (21-32); CHLORIDE 105 mmol/L (98-107); CKMB % 3.5 % (<4); COR CA(FOR HYPOALB) 9.6 mg/dL (8.5-10.1); CREATINE KINASE 29 Units/L (26-192); CREATINE KINASE MB < 1.0 ng/mL (0-4.0); CREATININE 0.64 mg/dL (0.55-1.02); SODIUM 140 mmol/L (136-145); TOTAL PROTEIN 6.7 g/dL (6.4-8.2); TROPONIN I < 0.02 ng/mL (0-1.5); eGFR NON BLACK RACES > 60 (>60)
[2017-09-29] MEDS ORDERED: NS 500 ML IV 500 ML IV ONE (14:22)
[2017-09-29] MEDS ORDERED: PROVENTIL NEB TX 0.083% 2.5MG/ 3ML NEB PRN (14:31)
[2017-09-29] MEDS: LEVAQUIN PREMIX IV 750 MG 750 MG/150 ML BAG IV SCH (14:36)
[2017-09-29] MEDS: SOLU-Medrol 125 MG VIAL IVP SCH ×2 (14:36→21:32)
[2017-09-29] MEDS ORDERED: NS 100 ML IV 100 ML IV ONE (14:48)
--- NOTE | 2017-09-29 15:21 | CT ---
HISTORY: Dyspnea Study: CT chest without contrast Comparison: 07/13/2017 Technique: Axial noncontrast images with coronal and sagittal reformats. Dose reduction procedures we re used with mA/kv adjusted for body size. The examination is limited due to the lack of intravenous contrast. Findings: Examination of the mediastinum demonstrated no evidence for mediastinal masses, enlarged mediastinal or enlarged hilar adenopathy to the limitations of an unenhanced examination. No pleural effusions ar e identified. No chest wall or axillary abnormality is identified. Those portions of the upper or abd ominal organs visualized were within normal limits to the limitations of an unenhanced examination. T he lungs are markedly hyperinflated. Centrilobular emphysematous changes are present diffusely. No pa renchymal nodules, masses, alveolar infiltrates, or areas of consolidation are identified. There is p eribronchial thickening consistent with bronchitis which could be acute, chronic, or both. Bibasilar interstitial lung changes are present. 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 Reported By Reported By:
[2017-09-29] MEDS: DUONEB 0.5 MG/3 MG NEB SCH ×2 (16:37→21:59)
[2017-09-29] MEDS ORDERED: XANAX PO PRN (19:16)
[2017-09-29] MEDS ORDERED: ZOLOFT PO ONE (21:19)
[2017-09-29] MEDS: NORCO 5/325 MG TAB PO SCH (21:31)
[2017-09-29] MEDS: ZOLOFT PO SCH (21:32)
[2017-09-29] MEDS: PULMICORT NEB TX 0.5 MG NEB SCH (21:59)
[2017-09-29] MEDS: BROVANA IN SCH (21:59)
[2017-09-30] MEDS: SOLU-Medrol 125 MG VIAL IVP SCH (06:13)
[2017-09-30 06:31] LABS: BASOPHILS # (AUTO) 0.1 X10^3/uL (0.0-0.1); BASOPHILS % (AUTO) 0.6 % (0.2-1.0); HEMOGLOBIN 13.9 g/dL (12.0-16.0); LYMPHOCYTES # (AUTO) 1.4 X10^3/uL (1.3-2.9); LYMPHOCYTES % (AUTO) 12.4 % (21.0-51.0); MEAN CORPUSCULAR HEMOGLOBIN 31.5 pg (27.0-34.0); MEAN CORPUSCULAR HGB CONC 34.9 g/dL (33.0-35.0); MEAN CORPUSCULAR VOLUME 90.4 fL (80.0-100.0); MEAN PLATELET VOLUME 9.1 fL (7.4-11.0); MONOCYTES # (AUTO) 0.2 x10^3/uL (0.3-0.8); MONOCYTES % (AUTO) 1.4 % (0.0-13.0); NEUTROPHILS # (AUTO) 9.9 x10^3/uL (2.2-4.8); NEUTROPHILS % (AUTO) 85.6 % (42.0-75.0); PLATELET COUNT 292 X10^3/uL (150.0-450.0); RED BLOOD COUNT 4.42 X10^6/uL (3.5-5.4); RED CELL DISTRIBUTION WIDTH 14.9 % (11.6-16.5); WHITE BLOOD COUNT 11.5 X10^3/uL (3.6-10.0)
[2017-09-30 06:44] LABS: ALANINE AMINOTRANSFERASE 16 Units/L (12-78); ALBUMIN 2.7 g/dL (3.4-5.0); ALKALINE PHOSPHATASE 102 Units/L (46-116); ASPARTATE AMINO TRANSFERASE 11 Units/L (15-37); BLOOD UREA NITROGEN 10 mg/dL (7-18); CALCIUM 8.8 mg/dL (8.5-10.1); CARBON DIOXIDE 25.5 mmol/L (21-32); CHLORIDE 104 mmol/L (98-107); COR CA(FOR HYPOALB) 9.8 mg/dL (8.5-10.1); COR NA(FOR HYPERGLY) 139 mmol/L (136-145); CREATININE 0.66 mg/dL (0.55-1.02); SODIUM 138 mmol/L (136-145); TOTAL PROTEIN 6.8 g/dL (6.4-8.2); eGFR NON BLACK RACES > 60 (>60)
[2017-09-30] MEDS: NORCO 5/325 MG TAB PO SCH ×2 (09:23→20:35)
[2017-09-30] MEDS: LEVAQUIN PREMIX IV 750 MG 750 MG/150 ML BAG IV SCH (09:23)
[2017-09-30] MEDS: PULMICORT NEB TX 0.5 MG NEB SCH ×2 (09:57→21:55)
[2017-09-30] MEDS: BROVANA IN SCH ×2 (09:57→21:55)
[2017-09-30] MEDS: DUONEB 0.5 MG/3 MG NEB SCH ×4 (09:57→21:55)
[2017-09-30] MEDS ORDERED: TUSSIONEX PENNKINETIC SUSP PO PRN (17:06)
[2017-09-30] MEDS: EFFEXOR XR 75 MG CAP PO SCH (17:40)
[2017-09-30] MEDS ORDERED: ZOLOFT PO ONE (19:50)
[2017-09-30] MEDS: ZOLOFT PO SCH (20:36)
[2017-09-30] MEDS: ROBITUSSIN DM PO SCH (20:36)
[2017-10-01 06:23] LABS: BASOPHILS # (AUTO) 0.1 X10^3/uL (0.0-0.1); BASOPHILS % (AUTO) 0.7 % (0.2-1.0); EOSINOPHILS # (AUTO) 0.1 x10^3/uL (0.0-0.2); EOSINOPHILS % (AUTO) 0.4 % (0.9-2.9); HEMATOCRIT 37.8 % (36.0-47.0); LYMPHOCYTES # (AUTO) 4.9 X10^3/uL (1.3-2.9); MEAN CORPUSCULAR HEMOGLOBIN 31.1 pg (27.0-34.0); MEAN CORPUSCULAR HGB CONC 34.3 g/dL (33.0-35.0); MEAN CORPUSCULAR VOLUME 90.6 fL (80.0-100.0); MEAN PLATELET VOLUME 8.8 fL (7.4-11.0); MONOCYTES # (AUTO) 0.8 x10^3/uL (0.3-0.8); MONOCYTES % (AUTO) 4.9 % (0.0-13.0); NEUTROPHILS # (AUTO) 9.5 x10^3/uL (2.2-4.8); PLATELET COUNT 294 X10^3/uL (150.0-450.0); RED BLOOD COUNT 4.17 X10^6/uL (3.5-5.4); RED CELL DISTRIBUTION WIDTH 14.6 % (11.6-16.5); WHITE BLOOD COUNT 15.4 X10^3/uL (3.6-10.0)
--- NOTE | 2017-10-01 06:40 | RAD ---
History: Shortness of breath Study: AP chest Comparison: September 20 Findings: The heart size is normal. The lungs are clear of acute disease with mild chronic diffuse in terstitial changes. There is no edema or effusion or lung consolidation. Impression: No change, no acute disease demonstrated. Reported By:
[2017-10-01 06:46] LABS: ALANINE AMINOTRANSFERASE 15 Units/L (12-78); ALBUMIN 2.6 g/dL (3.4-5.0); ALKALINE PHOSPHATASE 86 Units/L (46-116); ASPARTATE AMINO TRANSFERASE 9 Units/L (15-37); BLOOD UREA NITROGEN 10 mg/dL (7-18); CALCIUM 8.2 mg/dL (8.5-10.1); CARBON DIOXIDE 27.6 mmol/L (21-32); CHLORIDE 107 mmol/L (98-107); COR CA(FOR HYPOALB) 9.3 mg/dL (8.5-10.1); CREATININE 0.61 mg/dL (0.55-1.02); SODIUM 142 mmol/L (136-145); TOTAL PROTEIN 6.2 g/dL (6.4-8.2); eGFR NON BLACK RACES > 60 (>60)
[2017-10-01] MEDS: PULMICORT NEB TX 0.5 MG NEB SCH (08:49)
[2017-10-01] MEDS: DUONEB 0.5 MG/3 MG NEB SCH ×3 (08:49→16:12)
[2017-10-01] MEDS: BROVANA IN SCH (08:49)
[2017-10-01] MEDS: NORCO 5/325 MG TAB PO SCH (08:57)
[2017-10-01] MEDS: EFFEXOR XR 75 MG CAP PO SCH (08:57)
[2017-10-01] MEDS: ROBITUSSIN DM PO SCH ×3 (08:59→16:37)
[2017-10-01] MEDS: LEVAQUIN PREMIX IV 750 MG 750 MG/150 ML BAG IV SCH (08:59)
[2017-10-01 16:23] VITALS: BP 97/60
== END 2017-10-01 17:45 | disposition home or self-care (01) ==
LOC: MED/SURG
PROVIDERS: ADMIT Internal Medicine; ATTEND Internal Medicine
DX: F41.8 Other specified anxiety disorders; J20.8 Acute bronchitis due to other specified organisms; J44.1 Chronic obstructive pulmonary disease with (acute) exacerbation; R06.02 Shortness of breath; I95.89 Other hypotension; R53.1 Weakness; M54.5 Low back pain
CPT/HCPCS: 36415; 71010; 71045; 71260; 80053; 82550; 82553; 84484; 85025; 87040; 87070; 87086; 87205; 93005; 93010; 94640; 94669; 94760; A4222; G0378; J1956; J2930; J7040; J7050; J7620; J7626

== ENCOUNTER 2018-02-04 16:42 | Inpatient (IN) ==
[2018-02-04] MEDS ORDERED: TUSSIONEX PENNKINETIC SUSP PO PRN ×2 (17:18→17:23)
--- NOTE | 2018-02-04 17:29 | DR.H&P ---
H&P - History & Physical for Day of: H&P Date: 02/04/18 - Chief Complaint Chief Complaint: sob, fever, ccc - History of Present Illness History of Present Illness: 62 WF DIRECT ADMIT FROM DR PUGH OFFICE WITH SOB AND COPD EXACERBATION, BRONCHOPNEUMONIA. PT HAS BEEN SICK FOR 3 WEEKS, HAD ROUND OF LEVAQUIN PO AND IM ROCEPHIN WITHOUT IMPROVEMENT. PT WAS SEEN IN ER LAST NIGHT WITH SOB AND LEFT DUE TO WAITING OVER 4 HOURS AND WAS VERY WEAK. PT HAS PMH OF OA, COPD, ARISTIDES, RA, HTN. PT ADMITTED FOR TREATMENT OF ACUTE ILLNESS, RESP DISTRESS - Past Medical History Past Medical History: Depression, Anxiety, Arthritis Additional Medical History: SMOKER - Past Surgical History Surgical History: Appendectomy, Bowel Resection, Hysterectomy, Other, Tonsillectomy - Family History Family Medical History: Diabetes Mellitus, Cancer - Social History Does patient currently use any type of tobacco product: Yes Have you used tobacco products in the last 12 months: Yes Type of Tobacco Use: Cigarettes Does any household member use tobacco: No Alcohol Use: None Drug Use: None - Medications Home Medications: No Known Drug Allergies Allergy (Verified 02/03/18 17:20) - Review of Systems Constitutional: Fever, Chills, Weakness, Malaise Eyes: No Symptoms Reported ENT: No Symptoms Reported Respiratory: Cough, Shortness of Breath, SOB with Excertion, Sputum, Wheezing Cardiovascular: No Symptoms Reported. denies: Edema Gastrointestinal: No Symptoms Reported Genitourinary: No Symptoms Reported Musculoskeletal: Back Pain Skin: No Symptoms Reported Neurological: Weakness - Physical Exam Vital Signs: Blood Pressure [Right Arm] 97/60 Blood Pressure [Left Arm] 122/67 Blood Pressure 129/71 Oriented: Normal Eyes: Normal Ear: Normal Nose: Normal Throat: Normal Respiratory: Rhonchi Throughout, Wheezes Throughout Cardiovascular: Tachycardia. negative: Edema Auscultation: Bowel Sounds: Normal Palpation: Normal Tenderness: Epigastric Skin: Normal Musculoskeletal: Back:Thoracic, Back:Lumbar Psychiatric: Anxiety Affect: Anxious Speech Pattern: Clear, Appropriate - Assessment/Plan (1) Bronchopneumonia Status: Acute Plan: ADMIT, PNEUMONIA PROTOCOL. ABG ON ADMISSION, BLOOD AND SPUTUM CULTURES ON ADMISSION. CXR ON ADMISSION VERIFY HOME MEDICATION. SUPPLEMENTAL O2, RESP THERAPY (2) Rheumatoid arthritis Status: Acute (3) COPD (chronic obstructive pulmonary disease) Qualifiers: Status: Acute (4) ARISTIDES (generalized anxiety disorder) Status: Acute - Allergies Allergies/Adverse Reactions: Allergies Allergy/AdvReac Type Severity Reaction Status Date / Time No Known Drug Allergies Allergy Verified 02/03/18 17:20
[2018-02-04] MEDS ORDERED: LEVAQUIN PREMIX IV 750 MG 750 MG/150 ML BAG IV SCH (18:00)
[2018-02-04] MEDS ORDERED: ZOSYN VIAL 4.5 GRAMS 4.5 G in NS 100 ML IV + SPIKE MINIBAG* 100 ML IV SCH (18:00)
[2018-02-04] MEDS ORDERED: NS 1/2 1000 ML IV 1,000 ML IV SCH (18:00)
[2018-02-04 18:02] LABS: BASOPHILS # (AUTO) 0.1 X10^3/uL (0.0-0.1); BASOPHILS % (AUTO) 0.7 % (0.2-1.0); EOSINOPHILS # (AUTO) 0.2 x10^3/uL (0.0-0.2); EOSINOPHILS % (AUTO) 2.4 % (0.9-2.9); HEMATOCRIT 43.1 % (36.0-47.0); HEMOGLOBIN 14.6 g/dL (12.0-16.0); LYMPHOCYTES # (AUTO) 2.3 X10^3/uL (1.3-2.9); LYMPHOCYTES % (AUTO) 27.4 % (21.0-51.0); MEAN CORPUSCULAR HEMOGLOBIN 30.3 pg (27.0-34.0); MEAN CORPUSCULAR VOLUME 89.3 fL (80.0-100.0); MEAN PLATELET VOLUME 9.2 fL (7.4-11.0); MONOCYTES # (AUTO) 0.9 x10^3/uL (0.3-0.8); MONOCYTES % (AUTO) 10.3 % (0.0-13.0); NEUTROPHILS # (AUTO) 4.9 x10^3/uL (2.2-4.8); NEUTROPHILS % (AUTO) 59.2 % (42.0-75.0); PLATELET COUNT 306 X10^3/uL (150.0-450.0); RED BLOOD COUNT 4.82 X10^6/uL (3.5-5.4); WHITE BLOOD COUNT 8.3 X10^3/uL (3.6-10.0)
[2018-02-04 18:14] LABS: ALANINE AMINOTRANSFERASE 20 Units/L (12-78); ALBUMIN 3.5 g/dL (3.4-5.0); ALKALINE PHOSPHATASE 141 Units/L (46-116); ASPARTATE AMINO TRANSFERASE 16 Units/L (15-37); BLOOD UREA NITROGEN 6 mg/dL (7-18); CALCIUM 8.7 mg/dL (8.5-10.1); CHLORIDE 99 mmol/L (98-107); CREATININE 0.71 mg/dL (0.55-1.02); SODIUM 137 mmol/L (136-145); TOTAL PROTEIN 8.4 g/dL (6.4-8.2); eGFR NON BLACK RACES > 60 (>60)
[2018-02-04] MEDS ORDERED: NS 1/2 1000 ML IV 1,000 ML IV ONE (18:24)
[2018-02-04 18:25] LABS: ABG BASE EXCESS 2.3 mmol/L (-2.0-2.0)
[2018-02-04] MEDS: NS 1/2 1000 ML IV 1,000 ML IV SCH (18:28)
[2018-02-04] MEDS: PEPCID 20 MG IV PREMIX* 20 MG/50 ML BAG IV SCH ×2 (18:28→21:52)
[2018-02-04] MEDS: SOLU-Medrol 125 MG VIAL IVP SCH ×2 (18:29→21:53)
[2018-02-04] MEDS: LEVAQUIN PREMIX IV 750 MG 750 MG/150 ML BAG IV SCH (18:29)
[2018-02-04 18:55] LABS: LACTIC ACID 1.8 mmol/L (0.4-2.0)
[2018-02-04 19:02] LABS: CKMB % 1.9 % (<4); CREATINE KINASE 52 Units/L (26-192); CREATINE KINASE MB < 1.0 ng/mL (0-4.0); TROPONIN I < 0.02 ng/mL (0-1.5)
[2018-02-04] MEDS: ZOSYN VIAL 4.5 GRAMS 4.5 G in NS 100 ML IV + SPIKE MINIBAG* 100 ML IV SCH ×2 (19:57→21:52)
[2018-02-04] MEDS: DUONEB 0.5 MG/3 MG NEB SCH (20:41)
[2018-02-04] MEDS ORDERED: ROBITUSSIN DM PO SCH (21:00)
[2018-02-04] MEDS: ROBITUSSIN DM PO SCH (21:52)
--- NOTE | 2018-02-04 22:26 | RAD ---
HISTORY: Shortness of breath, weakness, fever Study: Two views of the chest Comparison: October 01, 2017 Findings: The trachea is midline. The cardiac silhouette is unremarkable. Interstitial changes are seen within both lungs similar to prior exam. There is questionable patchy bibasilar infiltrate. Recommend clinical correlation and continued follow-up as indicated for further evaluation. There is flattening of the hemidiaphragms. Mild blunting of the costophrenic angles is also noted in keeping with pleural thickening and/or small effusions. IMPRESSION: 1. Chronic appearing interstitial changes with questionable superimposed patchy bibasilar infiltrate. Correlate clinically. Reported By:
[2018-02-04] MEDS ORDERED: NORCO 5/325 MG TAB PO PRN (22:34)
[2018-02-05] MEDS: DUONEB 0.5 MG/3 MG NEB SCH ×6 (00:46→20:23)
[2018-02-05 01:51] LABS: CKMB % 2.6 % (<4); CREATINE KINASE 43 Units/L (26-192); CREATINE KINASE MB 1.1 ng/mL (0-4.0); TROPONIN I < 0.02 ng/mL (0-1.5)
[2018-02-05] MEDS: ZOSYN VIAL 4.5 GRAMS 4.5 G in NS 100 ML IV + SPIKE MINIBAG* 100 ML IV SCH ×2 (06:34→13:39)
[2018-02-05] MEDS: SOLU-Medrol 125 MG VIAL IVP SCH (06:35)
[2018-02-05 06:52] LABS: ALANINE AMINOTRANSFERASE 17 Units/L (12-78); ALBUMIN 2.9 g/dL (3.4-5.0); ALKALINE PHOSPHATASE 120 Units/L (46-116); ASPARTATE AMINO TRANSFERASE 14 Units/L (15-37); BLOOD UREA NITROGEN 8 mg/dL (7-18); CALCIUM 8.2 mg/dL (8.5-10.1); CARBON DIOXIDE 23.7 mmol/L (21-32); CHLORIDE 103 mmol/L (98-107); CKMB % 2.6 % (<4); COR CA(FOR HYPOALB) 9.1 mg/dL (8.5-10.1); COR NA(FOR HYPERGLY) 140 mmol/L (136-145); CREATINE KINASE 39 Units/L (26-192); CREATINE KINASE MB < 1.0 ng/mL (0-4.0); CREATININE 0.66 mg/dL (0.55-1.02); SODIUM 139 mmol/L (136-145); TOTAL PROTEIN 7.5 g/dL (6.4-8.2); TROPONIN I < 0.02 ng/mL (0-1.5); eGFR NON BLACK RACES > 60 (>60)
[2018-02-05] MEDS ORDERED: ZOFRAN INJ 4 MG VIAL IVP PRN (08:38)
[2018-02-05] MEDS ORDERED: ZOFRAN INJ 4 MG VIAL ONE (08:42)
[2018-02-05] MEDS: ROBITUSSIN DM PO SCH ×4 (08:43→21:17)
[2018-02-05] MEDS: PEPCID 20 MG IV PREMIX* 20 MG/50 ML BAG IV SCH ×2 (08:43→21:16)
[2018-02-05] MEDS: LEVAQUIN PREMIX IV 750 MG 750 MG/150 ML BAG IV SCH (08:43)
[2018-02-05] MEDS ORDERED: NS 1/2 1000 ML IV 1,000 ML IV ONE (13:18)
[2018-02-05] MEDS: NS 1/2 1000 ML IV 1,000 ML IV SCH ×3 (13:39→22:07)
--- NOTE | 2018-02-05 14:12 | PCM.PROG ---
Progress Note - Progress Note for Day of Date of Exam: 02/05/18 - Subjective Subjective: 62 WF ER ADMISSION WITH SOB, CHEST CONGESTION AND PNEUMONIA. PT CURRENTLY ON IV ATBX AND RESP THERAPY. PT COLLECTED A SPUTUM ON ADMISSION. PT CO CONTINUED COUGH AND SPUTUM PRODUCTION. PT STATES SHE IS BREATHING EASIER THIS AM AFTER STEROIDS. PT CO ANXIETY, NEEDS HER HOME MEDICATION RESUMED. - Past Medical Family Social History Past Med/Fam/Surg Hx: No changes since H&P Allergies: Allergies No Known Drug Allergies Allergy (Verified 02/03/18 17:20) - Review of Systems ROS: No change since H&P - Vital Signs and I&O's Vital Signs: Temperature 97.7 F Pulse Rate [Left Brachial] 78 Pulse Rate 92 Respiratory Rate 18 Blood Pressure [Right Arm] 106/55 Blood Pressure [Left Arm] 98/64 Blood Pressure 129/71 O2 Sat by Pulse Oximetry 98 Intake and Output: Intake & Output 02/03/18 02/04/18 02/05/18 02/06/18 11:59 11:59 11:59 11:59 Intake Total 1777 / 1777 Balance 1777 / 1777 - Physical Exam Oriented: Normal Eyes: Normal Ear: Normal Nose: Normal Throat: Normal Respiratory: Diminished, Rhonchi Cardiovascular: Tachycardia. negative: Edema Auscultation: Bowel Sounds: Normal Tenderness: Epigastric Skin: Normal Musculoskeletal: Back:Thoracic, Back:Lumbar Psychiatric: Anxiety Affect: Anxious Speech Pattern: Clear, Appropriate - Laboratory and Diagnostics Result Diagrams: 02/04/18 17:47 02/05/18 05:02 Labs: 02/04/18 17:59 Sputum - Expectorated Sputum Sputum Culture - Preliminary 02/04/18 17:59 Sputum - Expectorated Sputum - Final Laboratory WBC 8.3 X10^3/uL (3.6-10.0) 02/04/18 17:47 RBC 4.82 X10^6/uL (3.5-5.4) 02/04/18 17:47 Hgb 14.6 g/dL (12.0-16.0) 02/04/18 17:47 Hct 43.1 % (36.0-47.0) 02/04/18 17:47 MCV 89.3 fL (80.0-100.0) 02/04/18 17:47 MCH 30.3 pg (27.0-34.0) 02/04/18 17:47 MCHC 34.0 g/dL (33.0-35.0) 02/04/18 17:47 RDW 17.0 % (11.6-16.5) H 02/04/18 17:47 Plt Count 306 X10^3/uL (150.0-450.0) 02/04/18 17:47 MPV 9.2 fL (7.4-11.0) 02/04/18 17:47 Neut % (Auto) 59.2 % (42.0-75.0) 02/04/18 17:47 Lymph % (Auto) 27.4 % (21.0-51.0) 02/04/18 17:47 [place] % (Auto) 10.3 % (0.0-13.0) 02/04/18 17:47 Eos % (Auto) 2.4 % (0.9-2.9) 02/04/18 17:47 Baso % (Auto) 0.7 % (0.2-1.0) 02/04/18 17:47 Neut # (Auto) 4.9 x10^3/uL (2.2-4.8) H 02/04/18 17:47 Lymph # (Auto) 2.3 X10^3/uL (1.3-2.9) 02/04/18 17:47 [place] # (Auto) 0.9 x10^3/uL (0.3-0.8) H 02/04/18 17:47 Eos # (Auto) 0.2 x10^3/uL (0.0-0.2) 02/04/18 17:47 Baso # (Auto) 0.1 X10^3/uL (0.0-0.1) 02/04/18 17:47 Absolute Nucleated RBC 0.0 /100WBC 02/04/18 17:47 Sample Site Rb 02/04/18 18:20 ABG pH 7.500 (7.35-7.45) H 02/04/18 18:20 ABG pCO2 32.0 mmHg (35.0-45.0) L 02/04/18 18:20 ABG pO2 69.0 mmHg (80.0-100.0) L 02/04/18 18:20 ABG HCO3 25.0 mmol/L (22-26) 02/04/18 18:20 ABG O2 Saturation 95.0 % (90-100) 02/04/18 18:20 ABG Base Excess 2.3 mmol/L (-2.0-2.0) H 02/04/18 18:20 Ravindra Test N/a 02/04/18 18:20 A-a Gradient 41.0 mmHg 02/04/18 18:20 FiO2 21.0 02/04/18 18:20 Blood Gas Comments Pt spencer well. cdn 02/04/18 18:20 Sodium 139 mmol/L (136-145) 02/05/18 05:02 Corrected Sodium 140 mmol/L (136-145) 02/05/18 05:02 Potassium 4.1 mmol/L (3.5-5.1) 02/05/18 05:02 Chloride 103 mmol/L (98-107) 02/05/18 05:02 Carbon Dioxide 23.7 mmol/L (21-32) 02/05/18 05:02 BUN 8 mg/dL (7-18) 02/05/18 05:02 Creatinine 0.66 mg/dL (0.55-1.02) 02/05/18 05:02 Est GFR (MDRD) Af Amer > 60 (>60) 02/05/18 05:02 Est GFR (MDRD) Non-Af > 60 (>60) 02/05/18 05:02 Glucose 161 mg/dL (65-99) H 02/05/18 05:02 Lactic Acid 1.8 mmol/L (0.4-2.0) 02/04/18 17:47 Calcium 8.2 mg/dL (8.5-10.1) L 02/05/18 05:02 Corrected Calcium 9.1 mg/dL (8.5-10.1) 02/05/18 05:02 Total Bilirubin 0.10 mg/dL (0.2-1.0) L 02/05/18 05:02 AST 14 Units/L (15-37) L 02/05/18 05:02 ALT 17 Units/L (12-78) 02/05/18 05:02 Alkaline Phosphatase 120 Units/L (46-116) H 02/05/18 05:02 Creatine Kinase 39 Units/L (26-192) 02/05/18 05:02 CK-MB (CK-2) < 1.0 ng/mL (0-4.0) 02/05/18 05:02 CK/CKMB % Calc 2.6 % (<4) 02/05/18 05:02 Troponin I < 0.02 ng/mL (0-1.5) 02/05/18 05:02 Total Protein 7.5 g/dL (6.4-8.2) 02/05/18 05:02 Albumin 2.9 g/dL (3.4-5.0) L 02/05/18 05:02 Globulin 4.6 g/dL (2.5-4.5) H 02/05/18 05:02 Albumin/Globulin Ratio 0.6 Ratio (1.1-2.1) L 02/05/18 05:02 - Plan (1) Bronchopneumonia Status: Acute Plan: PNEUMONIA PROTOCOL. ABG ON ADMISSION, BLOOD AND SPUTUM CULTURES PENDING. REPEAT AM LABS. SUPPLEMENTAL O2, RESP THERAPY (2) Rheumatoid arthritis Status: Chronic (3) COPD (chronic obstructive pulmonary disease) Status: Chronic Qualifiers: (4) ARISTIDES (generalized anxiety disorder) Status: Chronic
[2018-02-05 14:47] VITALS: BMI 25.9
[2018-02-05] MEDS ORDERED: NS 1/2 1000 ML IV 0 ML IV ONE (16:26)
[2018-02-05] MEDS: PULMICORT NEB TX 0.5 MG NEB SCH (20:23)
[2018-02-05] MEDS ORDERED: ZOLOFT PO ONE (20:30)
[2018-02-05] MEDS ORDERED: PATIENT'S HOME MEDICATION (Budesonide-Formoterol 1 PUFF) IN SCH (21:00)
[2018-02-05] MEDS: PLAQUENIL PO SCH (21:16)
[2018-02-05] MEDS: LYRICA CAP 50 MG PO SCH (21:16)
[2018-02-05] MEDS: ZOLOFT PO SCH (21:16)
[2018-02-05] MEDS: NORCO 5/325 MG TAB PO PRN (21:27)
[2018-02-05] MEDS: XANAX PO PRN (21:28)
[2018-02-06] MEDS: DUONEB 0.5 MG/3 MG NEB SCH ×6 (00:31→20:37)
[2018-02-06] MEDS ORDERED: RESTORIL CAP 15 MG PO PRN (01:51)
[2018-02-06] MEDS ORDERED: RESTORIL CAP 15 MG PO ONE (01:57)
[2018-02-06] MEDS ORDERED: NS 1/2 1000 ML IV 1,000 ML IV ONE (02:00)
[2018-02-06] MEDS: NS 1/2 1000 ML IV 1,000 ML IV SCH (04:24)
[2018-02-06] MEDS ORDERED: NS 100 ML IV + SPIKE MINIBAG* 100 ML IV ONE (05:55)
[2018-02-06] MEDS ORDERED: ZOSYN VIAL 4.5 GRAMS IV ONE (05:55)
[2018-02-06 06:22] LABS: BASOPHILS % (AUTO) 0.2 % (0.2-1.0); EOSINOPHILS % (AUTO) 0.4 % (0.9-2.9); HEMATOCRIT 35.9 % (36.0-47.0); HEMOGLOBIN 12.2 g/dL (12.0-16.0); LYMPHOCYTES # (AUTO) 2.3 X10^3/uL (1.3-2.9); MEAN CORPUSCULAR HEMOGLOBIN 30.4 pg (27.0-34.0); MEAN CORPUSCULAR VOLUME 89.4 fL (80.0-100.0); MEAN PLATELET VOLUME 9.4 fL (7.4-11.0); MONOCYTES # (AUTO) 0.6 x10^3/uL (0.3-0.8); MONOCYTES % (AUTO) 6.3 % (0.0-13.0); NEUTROPHILS # (AUTO) 6.5 x10^3/uL (2.2-4.8); NEUTROPHILS % (AUTO) 69.1 % (42.0-75.0); PLATELET COUNT 253 X10^3/uL (150.0-450.0); RED BLOOD COUNT 4.02 X10^6/uL (3.5-5.4); RED CELL DISTRIBUTION WIDTH 16.8 % (11.6-16.5); WHITE BLOOD COUNT 9.4 X10^3/uL (3.6-10.0)
[2018-02-06 06:42] LABS: ALANINE AMINOTRANSFERASE 16 Units/L (12-78); ALBUMIN 2.7 g/dL (3.4-5.0); ALKALINE PHOSPHATASE 106 Units/L (46-116); ASPARTATE AMINO TRANSFERASE 12 Units/L (15-37); BLOOD UREA NITROGEN 6 mg/dL (7-18); CALCIUM 7.5 mg/dL (8.5-10.1); CARBON DIOXIDE 25.5 mmol/L (21-32); CHLORIDE 107 mmol/L (98-107); COR CA(FOR HYPOALB) 8.5 mg/dL (8.5-10.1); CREATININE 0.59 mg/dL (0.55-1.02); SODIUM 143 mmol/L (136-145); TOTAL PROTEIN 6.5 g/dL (6.4-8.2); eGFR NON BLACK RACES > 60 (>60)
[2018-02-06] MEDS: LYRICA CAP 50 MG PO SCH ×2 (08:40→20:29)
[2018-02-06] MEDS: PLAQUENIL PO SCH ×2 (08:40→20:29)
[2018-02-06] MEDS: ROBITUSSIN DM PO SCH ×4 (08:40→20:30)
[2018-02-06] MEDS: EFFEXOR XR 75 MG CAP PO SCH (08:40)
[2018-02-06] MEDS: NORCO 5/325 MG TAB PO PRN ×2 (08:40→20:28)
[2018-02-06] MEDS: PEPCID 20 MG IV PREMIX* 20 MG/50 ML BAG IV SCH ×2 (08:41→20:30)
[2018-02-06] MEDS: LEVAQUIN PREMIX IV 750 MG 750 MG/150 ML BAG IV SCH (08:41)
[2018-02-06] MEDS: XANAX PO PRN ×2 (08:47→20:27)
[2018-02-06] MEDS: PULMICORT NEB TX 0.5 MG NEB SCH ×2 (08:57→20:37)
[2018-02-06] MEDS: SOLU-Medrol 40 MG VIAL IVP SCH ×2 (13:01→21:36)
[2018-02-06] MEDS: ZOSYN VIAL 4.5 GRAMS 4.5 G in NS 100 ML IV + SPIKE MINIBAG* 100 ML IV SCH ×2 (13:01→22:17)
[2018-02-06] MEDS: NS 1000 ML 1,000 ML IV SCH (13:03)
[2018-02-06] MEDS: LOVENOX INJ 40 MG SYR SC SCH (16:46)
[2018-02-06] MEDS ORDERED: MICRO K EXTEN CAP 10 MEQ PO PRN (19:06)
[2018-02-06] MEDS ORDERED: POTASSIUM CHL 60 MEQ/NS 0.45% 500 ML IV PRN (19:06)
[2018-02-06] MEDS ORDERED: KLOR-CON PO PRN (19:06)
[2018-02-06] MEDS ORDERED: POTASSIUM CHLORIDE LIQ 20 MEQ UDC PO PRN (19:06)
[2018-02-06] MEDS ORDERED: POTASSIUM CHL 40 MEQ/NS 0.45% 500 ML IV PRN (19:06)
[2018-02-06] MEDS ORDERED: K-DUR TAB 20 MEQ PO PRN (19:06)
[2018-02-06] MEDS ORDERED: K-RIDER 10 MEQ/NS 100 ML 10 MEQ/100 ML BAG IV PRN (19:06)
[2018-02-06] MEDS ORDERED: ZOLOFT PO ONE (19:51)
[2018-02-06] MEDS: MAGNESIUM SULFATE 1 GRAM/100 mL PREMIX 1 GM/100 ML BAG IV PRN ×2 (20:36→21:00)
[2018-02-06] MEDS: ZOLOFT PO SCH (20:39)
[2018-02-07] MEDS: DUONEB 0.5 MG/3 MG NEB SCH ×6 (00:48→21:14)
[2018-02-07] MEDS: NS 1000 ML 1,000 ML IV SCH ×2 (03:37→17:07)
[2018-02-07] MEDS: SOLU-Medrol 40 MG VIAL IVP SCH (05:26)
[2018-02-07] MEDS: ZOSYN VIAL 4.5 GRAMS 4.5 G in NS 100 ML IV + SPIKE MINIBAG* 100 ML IV SCH ×3 (05:26→21:05)
[2018-02-07 06:39] LABS: BASOPHILS % (AUTO) 0.3 % (0.2-1.0); HEMATOCRIT 38.6 % (36.0-47.0); HEMOGLOBIN 12.9 g/dL (12.0-16.0); LYMPHOCYTES # (AUTO) 1.6 X10^3/uL (1.3-2.9); LYMPHOCYTES % (AUTO) 17.5 % (21.0-51.0); MEAN CORPUSCULAR HGB CONC 33.4 g/dL (33.0-35.0); MEAN CORPUSCULAR VOLUME 89.8 fL (80.0-100.0); MEAN PLATELET VOLUME 9.8 fL (7.4-11.0); MONOCYTES # (AUTO) 0.5 x10^3/uL (0.3-0.8); MONOCYTES % (AUTO) 5.1 % (0.0-13.0); NEUTROPHILS # (AUTO) 7.2 x10^3/uL (2.2-4.8); NEUTROPHILS % (AUTO) 77.1 % (42.0-75.0); PLATELET COUNT 289 X10^3/uL (150.0-450.0); RED CELL DISTRIBUTION WIDTH 16.9 % (11.6-16.5); WHITE BLOOD COUNT 9.3 X10^3/uL (3.6-10.0)
[2018-02-07 07:22] LABS: ALANINE AMINOTRANSFERASE 15 Units/L (12-78); ALBUMIN 2.7 g/dL (3.4-5.0); ALKALINE PHOSPHATASE 108 Units/L (46-116); ASPARTATE AMINO TRANSFERASE 14 Units/L (15-37); BLOOD UREA NITROGEN 7 mg/dL (7-18); CALCIUM 7.9 mg/dL (8.5-10.1); CARBON DIOXIDE 23.2 mmol/L (21-32); CHLORIDE 106 mmol/L (98-107); COR CA(FOR HYPOALB) 8.9 mg/dL (8.5-10.1); COR NA(FOR HYPERGLY) 142 mmol/L (136-145); CREATININE 0.58 mg/dL (0.55-1.02); MAGNESIUM 2.3 mg/dL (1.7-2.9); SODIUM 141 mmol/L (136-145); TOTAL PROTEIN 6.8 g/dL (6.4-8.2); eGFR NON BLACK RACES > 60 (>60)
[2018-02-07] MEDS: PEPCID 20 MG IV PREMIX* 20 MG/50 ML BAG IV SCH ×2 (08:32→20:40)
[2018-02-07] MEDS: LEVAQUIN PREMIX IV 750 MG 750 MG/150 ML BAG IV SCH (08:33)
[2018-02-07] MEDS: ROBITUSSIN DM PO SCH ×4 (08:33→20:40)
[2018-02-07] MEDS: EFFEXOR XR 75 MG CAP PO SCH (08:33)
[2018-02-07] MEDS: LYRICA CAP 50 MG PO SCH ×2 (08:33→20:41)
[2018-02-07] MEDS: PLAQUENIL PO SCH ×2 (08:33→20:41)
[2018-02-07] MEDS: LOVENOX INJ 40 MG SYR SC SCH (08:34)
[2018-02-07] MEDS: NORCO 5/325 MG TAB PO PRN ×2 (08:41→20:40)
[2018-02-07] MEDS: XANAX PO PRN (08:42)
[2018-02-07] MEDS: PULMICORT NEB TX 0.5 MG NEB SCH ×2 (08:55→21:14)
[2018-02-07] MEDS: XANAX PO SCH ×2 (13:22→21:05)
[2018-02-07] MEDS ORDERED: ZOLOFT PO ONE (20:15)
[2018-02-07] MEDS: ZOLOFT PO SCH (20:41)
[2018-02-08] MEDS: DUONEB 0.5 MG/3 MG NEB SCH ×6 (00:58→20:06)
[2018-02-08] MEDS: NORCO 5/325 MG TAB PO PRN ×2 (04:39→14:45)
[2018-02-08] MEDS: XANAX PO SCH ×3 (05:00→21:13)
[2018-02-08] MEDS: ZOSYN VIAL 4.5 GRAMS 4.5 G in NS 100 ML IV + SPIKE MINIBAG* 100 ML IV SCH ×3 (05:01→21:13)
[2018-02-08] MEDS: NS 1000 ML 1,000 ML IV SCH ×2 (05:01→21:12)
[2018-02-08 06:15] LABS: BASOPHILS % (AUTO) 0.5 % (0.2-1.0); EOSINOPHILS # (AUTO) 0.1 x10^3/uL (0.0-0.2); EOSINOPHILS % (AUTO) 1.3 % (0.9-2.9); HEMATOCRIT 36.4 % (36.0-47.0); HEMOGLOBIN 12.2 g/dL (12.0-16.0); LYMPHOCYTES % (AUTO) 50.9 % (21.0-51.0); MEAN CORPUSCULAR HEMOGLOBIN 30.1 pg (27.0-34.0); MEAN CORPUSCULAR HGB CONC 33.6 g/dL (33.0-35.0); MEAN CORPUSCULAR VOLUME 89.7 fL (80.0-100.0); MEAN PLATELET VOLUME 9.2 fL (7.4-11.0); MONOCYTES # (AUTO) 0.6 x10^3/uL (0.3-0.8); NEUTROPHILS # (AUTO) 4.1 x10^3/uL (2.2-4.8); NEUTROPHILS % (AUTO) 41.3 % (42.0-75.0); PLATELET COUNT 269 X10^3/uL (150.0-450.0); RED BLOOD COUNT 4.06 X10^6/uL (3.5-5.4); RED CELL DISTRIBUTION WIDTH 16.5 % (11.6-16.5); WHITE BLOOD COUNT 9.9 X10^3/uL (3.6-10.0)
[2018-02-08 06:22] LABS: ALANINE AMINOTRANSFERASE 15 Units/L (12-78); ALBUMIN 2.4 g/dL (3.4-5.0); ALKALINE PHOSPHATASE 97 Units/L (46-116); ASPARTATE AMINO TRANSFERASE 19 Units/L (15-37); BLOOD UREA NITROGEN 10 mg/dL (7-18); CALCIUM 7.6 mg/dL (8.5-10.1); CARBON DIOXIDE 25.3 mmol/L (21-32); CHLORIDE 107 mmol/L (98-107); COR CA(FOR HYPOALB) 8.9 mg/dL (8.5-10.1); CREATININE 0.61 mg/dL (0.55-1.02); SODIUM 142 mmol/L (136-145); TOTAL PROTEIN 6.2 g/dL (6.4-8.2); eGFR NON BLACK RACES > 60 (>60)
[2018-02-08] MEDS: PEPCID 20 MG IV PREMIX* 20 MG/50 ML BAG IV SCH ×2 (09:12→20:21)
[2018-02-08] MEDS: PULMICORT NEB TX 0.5 MG NEB SCH ×2 (09:12→20:06)
[2018-02-08] MEDS: EFFEXOR XR 75 MG CAP PO SCH (09:13)
[2018-02-08] MEDS: ROBITUSSIN DM PO SCH ×4 (09:13→20:22)
[2018-02-08] MEDS: PLAQUENIL PO SCH ×2 (09:13→20:22)
[2018-02-08] MEDS: LYRICA CAP 50 MG PO SCH ×2 (09:13→20:22)
[2018-02-08] MEDS: LOVENOX INJ 40 MG SYR SC SCH (09:20)
--- NOTE | 2018-02-08 09:44 | PCM.PROG ---
Progress Note - Progress Note for Day of Date of Exam: 02/06/18 - Subjective Subjective: 62 WF ER ADMISSION WITH SOB, CHEST CONGESTION AND PNEUMONIA. PT CURRENTLY ON IV ATBX AND RESP THERAPY. PT COLLECTED A SPUTUM ON ADMISSION WITH NORMAL RESP DANYELLE. PT CO CONTINUED COUGH AND SPUTUM PRODUCTION. PT STATES SHE IS BREATHING EASIER THIS AM AFTER STEROIDS. PT CO JOINT PAIN, REDNESS AND SWELLING TO FEET, GREAT TOE JOINTS, PT HAS RA - Past Medical Family Social History Past Med/Fam/Surg Hx: No changes since H&P Allergies: Allergies No Known Drug Allergies Allergy (Verified 02/03/18 17:20) - Review of Systems ROS: No change since H&P - Vital Signs and I&O's Vital Signs: Temperature 97.7 F Pulse Rate [Right Brachial] 79 Pulse Rate [Left Brachial] 86 Pulse Rate 73 Respiratory Rate 18 Blood Pressure [Right Arm] 92/58 Blood Pressure [Left Arm] 98/64 Blood Pressure 129/71 O2 Sat by Pulse Oximetry 96 Intake and Output: Intake & Output 02/05/18 02/06/18 02/07/18 02/08/18 11:59 11:59 11:59 11:59 Intake Total 1777 / 1777 2920 / 2920 2840 / 2840 3760 / 3760 Balance 1777 / 1777 2920 / 2920 2840 / 2840 3760 / 3760 - Physical Exam Oriented: Normal Eyes: Normal Ear: Normal Nose: Normal Throat: Normal Respiratory: Diminished, Rhonchi Cardiovascular: Tachycardia. negative: Edema Auscultation: Bowel Sounds: Normal Tenderness: Epigastric Skin: Normal Musculoskeletal: Right, Left, Foot, Back:Thoracic, Back:Lumbar, Tender (BILATERAL FEET, SMALL JOINT TENDERNESS WITH MILD REDNESS) Psychiatric: Anxiety Affect: Anxious Speech Pattern: Clear, Appropriate - Laboratory and Diagnostics Result Diagrams: 02/08/18 05:42 02/08/18 05:42 Labs: 02/04/18 17:51 Blood Blood Culture - Preliminary 02/04/18 17:47 Blood Blood Culture - Preliminary 02/04/18 17:59 Sputum - Expectorated Sputum Sputum Culture - Final 02/04/18 17:59 Sputum - Expectorated Sputum - Final Laboratory WBC 9.9 X10^3/uL (3.6-10.0) 02/08/18 05:42 RBC 4.06 X10^6/uL (3.5-5.4) 02/08/18 05:42 Hgb 12.2 g/dL (12.0-16.0) 02/08/18 05:42 Hct 36.4 % (36.0-47.0) 02/08/18 05:42 MCV 89.7 fL (80.0-100.0) 02/08/18 05:42 MCH 30.1 pg (27.0-34.0) 02/08/18 05:42 MCHC 33.6 g/dL (33.0-35.0) 02/08/18 05:42 RDW 16.5 % (11.6-16.5) 02/08/18 05:42 Plt Count 269 X10^3/uL (150.0-450.0) 02/08/18 05:42 MPV 9.2 fL (7.4-11.0) 02/08/18 05:42 Neut % (Auto) 41.3 % (42.0-75.0) L 02/08/18 05:42 Lymph % (Auto) 50.9 % (21.0-51.0) 02/08/18 05:42 [place] % (Auto) 6.0 % (0.0-13.0) 02/08/18 05:42 Eos % (Auto) 1.3 % (0.9-2.9) 02/08/18 05:42 Baso % (Auto) 0.5 % (0.2-1.0) 02/08/18 05:42 Neut # (Auto) 4.1 x10^3/uL (2.2-4.8) 02/08/18 05:42 Lymph # (Auto) 5.0 X10^3/uL (1.3-2.9) H 02/08/18 05:42 [place] # (Auto) 0.6 x10^3/uL (0.3-0.8) 02/08/18 05:42 Eos # (Auto) 0.1 x10^3/uL (0.0-0.2) 02/08/18 05:42 Baso # (Auto) 0.0 X10^3/uL (0.0-0.1) 02/08/18 05:42 Absolute Nucleated RBC 0.0 /100WBC 02/08/18 05:42 Sample Site Rb 02/04/18 18:20 ABG pH 7.500 (7.35-7.45) H 02/04/18 18:20 ABG pCO2 32.0 mmHg (35.0-45.0) L 02/04/18 18:20 ABG pO2 69.0 mmHg (80.0-100.0) L 02/04/18 18:20 ABG HCO3 25.0 mmol/L (22-26) 02/04/18 18:20 ABG O2 Saturation 95.0 % (90-100) 02/04/18 18:20 ABG Base Excess 2.3 mmol/L (-2.0-2.0) H 02/04/18 18:20 Ravindra Test N/a 02/04/18 18:20 A-a Gradient 41.0 mmHg 02/04/18 18:20 FiO2 21.0 02/04/18 18:20 Blood Gas Comments Pt spencer well. cdn 02/04/18 18:20 Sodium 142 mmol/L (136-145) 02/08/18 05:42 Corrected Sodium TNP 02/08/18 05:42 Potassium 4.4 mmol/L (3.5-5.1) 02/08/18 05:42 Chloride 107 mmol/L (98-107) 02/08/18 05:42 Carbon Dioxide 25.3 mmol/L (21-32) 02/08/18 05:42 BUN 10 mg/dL (7-18) 02/08/18 05:42 Creatinine 0.61 mg/dL (0.55-1.02) 02/08/18 05:42 Est GFR (MDRD) Af Amer > 60 (>60) 02/08/18 05:42 Est GFR (MDRD) Non-Af > 60 (>60) 02/08/18 05:42 Glucose 87 mg/dL (65-99) 02/08/18 05:42 Lactic Acid 1.8 mmol/L (0.4-2.0) 02/04/18 17:47 Calcium 7.6 mg/dL (8.5-10.1) L 02/08/18 05:42 Corrected Calcium 8.9 mg/dL (8.5-10.1) 02/08/18 05:42 Magnesium 2.3 mg/dL (1.7-2.9) 02/07/18 05:35 Total Bilirubin 0.20 mg/dL (0.2-1.0) 02/08/18 05:42 AST 19 Units/L (15-37) 02/08/18 05:42 ALT 15 Units/L (12-78) 02/08/18 05:42 Alkaline Phosphatase 97 Units/L (46-116) 02/08/18 05:42 Creatine Kinase 39 Units/L (26-192) 02/05/18 05:02 CK-MB (CK-2) < 1.0 ng/mL (0-4.0) 02/05/18 05:02 CK/CKMB % Calc 2.6 % (<4) 02/05/18 05:02 Troponin I < 0.02 ng/mL (0-1.5) 02/05/18 05:02 Total Protein 6.2 g/dL (6.4-8.2) L 02/08/18 05:42 Albumin 2.4 g/dL (3.4-5.0) L 02/08/18 05:42 Globulin 3.8 g/dL (2.5-4.5) 02/08/18 05:42 Albumin/Globulin Ratio 0.6 Ratio (1.1-2.1) L 02/08/18 05:42 - Plan (1) Bronchopneumonia Status: Acute Plan: PNEUMONIA PROTOCOL. ABG ON ADMISSION, BLOOD AND SPUTUM CULTURES COLLECTED ON ADMISSION. REPEAT AM LABS. SUPPLEMENTAL O2, RESP THERAPY (2) Rheumatoid arthritis Status: Chronic Plan: REPEAT SOLU MEDROL 40MG, PAIN CONTROL (3) COPD (chronic obstructive pulmonary disease) Status: Chronic Qualifiers: (4) ARISTIDES (generalized anxiety disorder) Status: Chronic
--- NOTE | 2018-02-08 09:46 | PCM.PROG ---
Progress Note - Progress Note for Day of Date of Exam: 02/07/18 - Subjective Subjective: 62 WF ER ADMISSION WITH SOB, CHEST CONGESTION AND PNEUMONIA. PT CURRENTLY ON IV ATBX AND RESP THERAPY. PT COLLECTED A SPUTUM ON ADMISSION WITH NORMAL RESP DANYELLE. PT CO CONTINUED COUGH AND SPUTUM PRODUCTION, DIFFUSE EXPIRATORY WHEEZES ON EXAM. PT CO JOINT PAIN, REDNESS AND SWELLING TO FEET, GR EAT TOE JOINTS, PT HAS RA AND WAS GIVEN SOLU MEDROL YESTERDAY WITH REPORTS SLIGHTLY IMPROVED JOINT PAIN. PT STATES HE DID NOT REST WELL DUE TO ANXIETY, PROBABLE SE FROM STEROIDS. WILL REPEAT AM CXR. ENCOURAGE PULMONARY TOILETING AND AMBULATION - Past Medical Family Social History Past Med/Fam/Surg Hx: No changes since H&P Allergies: Allergies No Known Drug Allergies Allergy (Verified 02/03/18 17:20) - Review of Systems ROS: No change since H&P - Vital Signs and I&O's Vital Signs: Temperature 97.7 F Pulse Rate [Right Brachial] 79 Pulse Rate [Left Brachial] 86 Pulse Rate 73 Respiratory Rate 18 Blood Pressure [Right Arm] 92/58 Blood Pressure [Left Arm] 98/64 Blood Pressure 129/71 O2 Sat by Pulse Oximetry 96 Intake and Output: Intake & Output 02/05/18 02/06/18 02/07/18 02/08/18 11:59 11:59 11:59 11:59 Intake Total 1777 / 1777 2920 / 2920 2840 / 2840 3760 / 3760 Balance 1777 / 1777 2920 / 2920 2840 / 2840 3760 / 3760 - Physical Exam Oriented: Normal Eyes: Normal Ear: Normal Nose: Normal Throat: Normal Respiratory: Diminished, Rhonchi Cardiovascular: Tachycardia. negative: Edema Auscultation: Bowel Sounds: Normal Tenderness: Epigastric Skin: Normal Musculoskeletal: Right, Left, Foot, Back:Thoracic, Back:Lumbar, Tender (BILATERAL FEET, SMALL JOINT TENDERNESS WITH MILD REDNESS) Psychiatric: Anxiety Affect: Anxious Speech Pattern: Clear, Appropriate - Laboratory and Diagnostics Result Diagrams: 02/08/18 05:42 02/08/18 05:42 Labs: 02/04/18 17:51 Blood Blood Culture - Preliminary 02/04/18 17:47 Blood Blood Culture - Preliminary 02/04/18 17:59 Sputum - Expectorated Sputum Sputum Culture - Final 02/04/18 17:59 Sputum - Expectorated Sputum - Final Laboratory WBC 9.9 X10^3/uL (3.6-10.0) 02/08/18 05:42 RBC 4.06 X10^6/uL (3.5-5.4) 02/08/18 05:42 Hgb 12.2 g/dL (12.0-16.0) 02/08/18 05:42 Hct 36.4 % (36.0-47.0) 02/08/18 05:42 MCV 89.7 fL (80.0-100.0) 02/08/18 05:42 MCH 30.1 pg (27.0-34.0) 02/08/18 05:42 MCHC 33.6 g/dL (33.0-35.0) 02/08/18 05:42 RDW 16.5 % (11.6-16.5) 02/08/18 05:42 Plt Count 269 X10^3/uL (150.0-450.0) 02/08/18 05:42 MPV 9.2 fL (7.4-11.0) 02/08/18 05:42 Neut % (Auto) 41.3 % (42.0-75.0) L 02/08/18 05:42 Lymph % (Auto) 50.9 % (21.0-51.0) 02/08/18 05:42 [place] % (Auto) 6.0 % (0.0-13.0) 02/08/18 05:42 Eos % (Auto) 1.3 % (0.9-2.9) 02/08/18 05:42 Baso % (Auto) 0.5 % (0.2-1.0) 02/08/18 05:42 Neut # (Auto) 4.1 x10^3/uL (2.2-4.8) 02/08/18 05:42 Lymph # (Auto) 5.0 X10^3/uL (1.3-2.9) H 02/08/18 05:42 [place] # (Auto) 0.6 x10^3/uL (0.3-0.8) 02/08/18 05:42 Eos # (Auto) 0.1 x10^3/uL (0.0-0.2) 02/08/18 05:42 Baso # (Auto) 0.0 X10^3/uL (0.0-0.1) 02/08/18 05:42 Absolute Nucleated RBC 0.0 /100WBC 02/08/18 05:42 Sample Site Rb 02/04/18 18:20 ABG pH 7.500 (7.35-7.45) H 02/04/18 18:20 ABG pCO2 32.0 mmHg (35.0-45.0) L 02/04/18 18:20 ABG pO2 69.0 mmHg (80.0-100.0) L 02/04/18 18:20 ABG HCO3 25.0 mmol/L (22-26) 02/04/18 18:20 ABG O2 Saturation 95.0 % (90-100) 02/04/18 18:20 ABG Base Excess 2.3 mmol/L (-2.0-2.0) H 02/04/18 18:20 Ravindra Test N/a 02/04/18 18:20 A-a Gradient 41.0 mmHg 02/04/18 18:20 FiO2 21.0 02/04/18 18:20 Blood Gas Comments Pt spencer well. cdn 02/04/18 18:20 Sodium 142 mmol/L (136-145) 02/08/18 05:42 Corrected Sodium TNP 02/08/18 05:42 Potassium 4.4 mmol/L (3.5-5.1) 02/08/18 05:42 Chloride 107 mmol/L (98-107) 02/08/18 05:42 Carbon Dioxide 25.3 mmol/L (21-32) 02/08/18 05:42 BUN 10 mg/dL (7-18) 02/08/18 05:42 Creatinine 0.61 mg/dL (0.55-1.02) 02/08/18 05:42 Est GFR (MDRD) Af Amer > 60 (>60) 02/08/18 05:42 Est GFR (MDRD) Non-Af > 60 (>60) 02/08/18 05:42 Glucose 87 mg/dL (65-99) 02/08/18 05:42 Lactic Acid 1.8 mmol/L (0.4-2.0) 02/04/18 17:47 Calcium 7.6 mg/dL (8.5-10.1) L 02/08/18 05:42 Corrected Calcium 8.9 mg/dL (8.5-10.1) 02/08/18 05:42 Magnesium 2.3 mg/dL (1.7-2.9) 02/07/18 05:35 Total Bilirubin 0.20 mg/dL (0.2-1.0) 02/08/18 05:42 AST 19 Units/L (15-37) 02/08/18 05:42 ALT 15 Units/L (12-78) 02/08/18 05:42 Alkaline Phosphatase 97 Units/L (46-116) 02/08/18 05:42 Creatine Kinase 39 Units/L (26-192) 02/05/18 05:02 CK-MB (CK-2) < 1.0 ng/mL (0-4.0) 02/05/18 05:02 CK/CKMB % Calc 2.6 % (<4) 02/05/18 05:02 Troponin I < 0.02 ng/mL (0-1.5) 02/05/18 05:02 Total Protein 6.2 g/dL (6.4-8.2) L 02/08/18 05:42 Albumin 2.4 g/dL (3.4-5.0) L 02/08/18 05:42 Globulin 3.8 g/dL (2.5-4.5) 02/08/18 05:42 Albumin/Globulin Ratio 0.6 Ratio (1.1-2.1) L 02/08/18 05:42 - Plan (1) Bronchopneumonia Status: Acute Plan: PNEUMONIA PROTOCOL. ABG ON ADMISSION, BLOOD AND SPUTUM CULTURES COLLECTED ON ADMISSION. REPEAT AM LABS. SUPPLEMENTAL O2, RESP THERAPY (2) Rheumatoid arthritis Status: Chronic Plan: REPEAT SOLU MEDROL 40MG, PAIN CONTROL (3) COPD (chronic obstructive pulmonary disease) Status: Chronic Qualifiers: (4) ARISTIDES (generalized anxiety disorder) Status: Chronic
--- NOTE | 2018-02-08 09:48 | PCM.PROG ---
Progress Note - Progress Note for Day of Date of Exam: 02/08/18 - Subjective Subjective: 62 WF ER ADMISSION WITH SOB, CHEST CONGESTION AND PNEUMONIA. PT CURRENTLY ON IV ATBX AND RESP THERAPY. PT COLLECTED A SPUTUM ON ADMISSION WITH NORMAL RESP DANYELLE. PT HAS IMPROVING CENTRAL RHONCHI, CONTINUES WITH DIFFUSE LOWER LUNG EXPIRATORY WHEEZING, MILD SOB ON EXERTION. REPEAT CXR ODERED FOR THIS AM, DISCUSSED POSSIBLE D/C ON THURSDAY IF PT CONTINUES TO IMPROVE SYMPTOMATICALLY - Past Medical Family Social History Past Med/Fam/Surg Hx: No changes since H&P Allergies: Allergies No Known Drug Allergies Allergy (Verified 02/03/18 17:20) - Review of Systems ROS: No change since H&P - Vital Signs and I&O's Vital Signs: Temperature 97.7 F Pulse Rate [Right Brachial] 79 Pulse Rate [Left Brachial] 86 Pulse Rate 73 Respiratory Rate 18 Blood Pressure [Right Arm] 92/58 Blood Pressure [Left Arm] 98/64 Blood Pressure 129/71 O2 Sat by Pulse Oximetry 96 Intake and Output: Intake & Output 02/05/18 02/06/18 02/07/18 02/08/18 11:59 11:59 11:59 11:59 Intake Total 1777 / 1777 2920 / 2920 2840 / 2840 3760 / 3760 Balance 1777 / 1777 2920 / 2920 2840 / 2840 3760 / 3760 - Physical Exam Oriented: Normal Eyes: Normal Ear: Normal Nose: Normal Throat: Normal Respiratory: Diminished, Rhonchi Cardiovascular: Tachycardia. negative: Edema Auscultation: Bowel Sounds: Normal Tenderness: Epigastric Skin: Normal Musculoskeletal: Right, Left, Foot, Back:Thoracic, Back:Lumbar, Tender (BILATERAL FEET, SMALL JOINT TENDERNESS WITH MILD REDNESS) Psychiatric: Anxiety Affect: Anxious Speech Pattern: Clear, Appropriate - Laboratory and Diagnostics Result Diagrams: 02/08/18 05:42 02/08/18 05:42 Labs: 02/04/18 17:51 Blood Blood Culture - Preliminary 02/04/18 17:47 Blood Blood Culture - Preliminary 02/04/18 17:59 Sputum - Expectorated Sputum Sputum Culture - Final 02/04/18 17:59 Sputum - Expectorated Sputum - Final Laboratory WBC 9.9 X10^3/uL (3.6-10.0) 02/08/18 05:42 RBC 4.06 X10^6/uL (3.5-5.4) 02/08/18 05:42 Hgb 12.2 g/dL (12.0-16.0) 02/08/18 05:42 Hct 36.4 % (36.0-47.0) 02/08/18 05:42 MCV 89.7 fL (80.0-100.0) 02/08/18 05:42 MCH 30.1 pg (27.0-34.0) 02/08/18 05:42 MCHC 33.6 g/dL (33.0-35.0) 02/08/18 05:42 RDW 16.5 % (11.6-16.5) 02/08/18 05:42 Plt Count 269 X10^3/uL (150.0-450.0) 02/08/18 05:42 MPV 9.2 fL (7.4-11.0) 02/08/18 05:42 Neut % (Auto) 41.3 % (42.0-75.0) L 02/08/18 05:42 Lymph % (Auto) 50.9 % (21.0-51.0) 02/08/18 05:42 [place] % (Auto) 6.0 % (0.0-13.0) 02/08/18 05:42 Eos % (Auto) 1.3 % (0.9-2.9) 02/08/18 05:42 Baso % (Auto) 0.5 % (0.2-1.0) 02/08/18 05:42 Neut # (Auto) 4.1 x10^3/uL (2.2-4.8) 02/08/18 05:42 Lymph # (Auto) 5.0 X10^3/uL (1.3-2.9) H 02/08/18 05:42 [place] # (Auto) 0.6 x10^3/uL (0.3-0.8) 02/08/18 05:42 Eos # (Auto) 0.1 x10^3/uL (0.0-0.2) 02/08/18 05:42 Baso # (Auto) 0.0 X10^3/uL (0.0-0.1) 02/08/18 05:42 Absolute Nucleated RBC 0.0 /100WBC 02/08/18 05:42 Sample Site Rb 02/04/18 18:20 ABG pH 7.500 (7.35-7.45) H 02/04/18 18:20 ABG pCO2 32.0 mmHg (35.0-45.0) L 02/04/18 18:20 ABG pO2 69.0 mmHg (80.0-100.0) L 02/04/18 18:20 ABG HCO3 25.0 mmol/L (22-26) 02/04/18 18:20 ABG O2 Saturation 95.0 % (90-100) 02/04/18 18:20 ABG Base Excess 2.3 mmol/L (-2.0-2.0) H 02/04/18 18:20 Ravindra Test N/a 02/04/18 18:20 A-a Gradient 41.0 mmHg 02/04/18 18:20 FiO2 21.0 02/04/18 18:20 Blood Gas Comments Pt spencer well. cdn 02/04/18 18:20 Sodium 142 mmol/L (136-145) 02/08/18 05:42 Corrected Sodium TNP 02/08/18 05:42 Potassium 4.4 mmol/L (3.5-5.1) 02/08/18 05:42 Chloride 107 mmol/L (98-107) 02/08/18 05:42 Carbon Dioxide 25.3 mmol/L (21-32) 02/08/18 05:42 BUN 10 mg/dL (7-18) 02/08/18 05:42 Creatinine 0.61 mg/dL (0.55-1.02) 02/08/18 05:42 Est GFR (MDRD) Af Amer > 60 (>60) 02/08/18 05:42 Est GFR (MDRD) Non-Af > 60 (>60) 02/08/18 05:42 Glucose 87 mg/dL (65-99) 02/08/18 05:42 Lactic Acid 1.8 mmol/L (0.4-2.0) 02/04/18 17:47 Calcium 7.6 mg/dL (8.5-10.1) L 02/08/18 05:42 Corrected Calcium 8.9 mg/dL (8.5-10.1) 02/08/18 05:42 Magnesium 2.3 mg/dL (1.7-2.9) 02/07/18 05:35 Total Bilirubin 0.20 mg/dL (0.2-1.0) 02/08/18 05:42 AST 19 Units/L (15-37) 02/08/18 05:42 ALT 15 Units/L (12-78) 02/08/18 05:42 Alkaline Phosphatase 97 Units/L (46-116) 02/08/18 05:42 Creatine Kinase 39 Units/L (26-192) 02/05/18 05:02 CK-MB (CK-2) < 1.0 ng/mL (0-4.0) 02/05/18 05:02 CK/CKMB % Calc 2.6 % (<4) 02/05/18 05:02 Troponin I < 0.02 ng/mL (0-1.5) 02/05/18 05:02 Total Protein 6.2 g/dL (6.4-8.2) L 02/08/18 05:42 Albumin 2.4 g/dL (3.4-5.0) L 02/08/18 05:42 Globulin 3.8 g/dL (2.5-4.5) 02/08/18 05:42 Albumin/Globulin Ratio 0.6 Ratio (1.1-2.1) L 02/08/18 05:42 - Plan (1) Bronchopneumonia Status: Acute Plan: PNEUMONIA PROTOCOL. ABG ON ADMISSION, BLOOD AND SPUTUM CULTURES COLLECTED ON ADMISSION. REPEAT AM LABS. SUPPLEMENTAL O2, RESP THERAPY (2) Rheumatoid arthritis Status: Chronic Plan: REPEAT SOLU MEDROL 40MG, PAIN CONTROL (3) COPD (chronic obstructive pulmonary disease) Status: Chronic Qualifiers: (4) ARISTIDES (generalized anxiety disorder) Status: Chronic
[2018-02-08] MEDS: LEVAQUIN PREMIX IV 750 MG 750 MG/150 ML BAG IV SCH (09:51)
--- NOTE | 2018-02-08 12:18 | RAD ---
Reported By: ORY: Follow-up for pneumonia Study: One-view chest Comparison: PA and lateral chest 02/04/2018 Technique: AP upright chest Findings: EKG leads overlie the thorax. Heart size configuration airway are normal. There are chronic changes of fibrosis greatest in the bases but these are stable and unchanged from the prior film of 02/04/2018. Interstitial markings are also unchanged from older film of 10/01/2017. IMPRESSION: 1. Chronic lung changes of fibrosis but no definite acute infiltrates or effusions and no change from 10/01/2017 and more recent study 02/04/2018.
[2018-02-08] MEDS ORDERED: ZOLOFT PO ONE (20:11)
[2018-02-08] MEDS: ZOLOFT PO SCH (20:22)
[2018-02-08] MEDS: MILK OF MAGNESIA PO SCH (20:22)
[2018-02-08] MEDS ORDERED: COLACE CAP 100 MG PO SCH (21:00)
[2018-02-09] MEDS: DUONEB 0.5 MG/3 MG NEB SCH ×3 (00:59→09:29)
[2018-02-09] MEDS: NORCO 5/325 MG TAB PO PRN (04:28)
[2018-02-09] MEDS: NS 1000 ML 1,000 ML IV SCH (04:28)
[2018-02-09] MEDS: ZOSYN VIAL 4.5 GRAMS 4.5 G in NS 100 ML IV + SPIKE MINIBAG* 100 ML IV SCH ×2 (05:01→14:03)
[2018-02-09] MEDS: XANAX PO SCH ×2 (05:01→13:52)
[2018-02-09 05:19] LABS: BASOPHILS # (AUTO) 0.1 X10^3/uL (0.0-0.1); BASOPHILS % (AUTO) 0.8 % (0.2-1.0); EOSINOPHILS # (AUTO) 0.4 x10^3/uL (0.0-0.2); EOSINOPHILS % (AUTO) 3.2 % (0.9-2.9); HEMATOCRIT 38.5 % (36.0-47.0); LYMPHOCYTES # (AUTO) 4.6 X10^3/uL (1.3-2.9); MEAN CORPUSCULAR HEMOGLOBIN 30.1 pg (27.0-34.0); MEAN CORPUSCULAR HGB CONC 33.9 g/dL (33.0-35.0); MEAN CORPUSCULAR VOLUME 88.8 fL (80.0-100.0); MEAN PLATELET VOLUME 8.9 fL (7.4-11.0); MONOCYTES # (AUTO) 0.7 x10^3/uL (0.3-0.8); MONOCYTES % (AUTO) 6.3 % (0.0-13.0); NEUTROPHILS # (AUTO) 5.9 x10^3/uL (2.2-4.8); NEUTROPHILS % (AUTO) 50.7 % (42.0-75.0); PLATELET COUNT 294 X10^3/uL (150.0-450.0); RED BLOOD COUNT 4.33 X10^6/uL (3.5-5.4); RED CELL DISTRIBUTION WIDTH 16.4 % (11.6-16.5); WHITE BLOOD COUNT 11.7 X10^3/uL (3.6-10.0)
[2018-02-09 05:28] LABS: ALANINE AMINOTRANSFERASE 16 Units/L (12-78); ALBUMIN 2.7 g/dL (3.4-5.0); ALKALINE PHOSPHATASE 105 Units/L (46-116); ASPARTATE AMINO TRANSFERASE 13 Units/L (15-37); BLOOD UREA NITROGEN 10 mg/dL (7-18); CALCIUM 8.3 mg/dL (8.5-10.1); CARBON DIOXIDE 28.3 mmol/L (21-32); CHLORIDE 104 mmol/L (98-107); COR CA(FOR HYPOALB) 9.3 mg/dL (8.5-10.1); CREATININE 0.72 mg/dL (0.55-1.02); SODIUM 141 mmol/L (136-145); TOTAL PROTEIN 6.8 g/dL (6.4-8.2); eGFR NON BLACK RACES > 60 (>60)
[2018-02-09] MEDS: PEPCID 20 MG IV PREMIX* 20 MG/50 ML BAG IV SCH (09:23)
[2018-02-09] MEDS: EFFEXOR XR 75 MG CAP PO SCH (09:24)
[2018-02-09] MEDS: LYRICA CAP 50 MG PO SCH (09:24)
[2018-02-09] MEDS: PLAQUENIL PO SCH (09:24)
[2018-02-09] MEDS: ROBITUSSIN DM PO SCH ×2 (09:24→13:52)
[2018-02-09] MEDS: MILK OF MAGNESIA PO SCH (09:25)
[2018-02-09] MEDS: LOVENOX INJ 40 MG SYR SC SCH (09:25)
[2018-02-09] MEDS: PULMICORT NEB TX 0.5 MG NEB SCH (09:29)
[2018-02-09] MEDS: LEVAQUIN PREMIX IV 750 MG 750 MG/150 ML BAG IV SCH (11:15)
[2018-02-09 12:11] VITALS: BP 100/59
== END 2018-02-09 15:00 | disposition home or self-care (01) | DRG 194 ==
LOC: MED/SURG → OBSVTOIN 17:15
PROVIDERS: ADMIT Internal Medicine; ATTEND Internal Medicine
DX: F41.8 Other specified anxiety disorders; I10 Essential (primary) hypertension; F32.89 Other specified depressive episodes; K21.9 Gastro-esophageal reflux disease without esophagitis; M06.89 Other specified rheumatoid arthritis, multiple sites; R53.1 Weakness; J44.1 Chronic obstructive pulmonary disease with (acute) exacerbation; R06.02 Shortness of breath; J18.0 Bronchopneumonia, unspecified organism
CPT/HCPCS: 36415; 36600; 71010; 71020; 71045; 71046; 80053; 82550; 82553; 82803; 83605; 83735; 84484; 85025; 87040; 87070; 87205; 93005; 93010; 94640; 94760; A4222; S0028; J1650; J1956; J2405; J2543; J2920; J2930; J3475; J7030; J7050; J7620; J7626

== ENCOUNTER 2018-11-02 10:07 | Observation (INO) ==
[2018-11-02] MEDS ORDERED: ZOFRAN INJ 4 MG VIAL IVP PRN (14:33)
[2018-11-02 14:57] VITALS: BMI 24.3
[2018-11-02 15:01] LABS: BASOPHILS # (AUTO) 0.1 X10^3/uL (0.0-0.1); EOSINOPHILS # (AUTO) 0.6 x10^3/uL (0.0-0.2); EOSINOPHILS % (AUTO) 6.4 % (0.9-2.9); HEMATOCRIT 43.3 % (36.0-47.0); HEMOGLOBIN 14.9 g/dL (12.0-16.0); LYMPHOCYTES # (AUTO) 3.8 X10^3/uL (1.3-2.9); LYMPHOCYTES % (AUTO) 39.1 % (21.0-51.0); MEAN CORPUSCULAR HEMOGLOBIN 32.1 pg (27.0-34.0); MEAN CORPUSCULAR HGB CONC 34.5 g/dL (33.0-35.0); MEAN PLATELET VOLUME 9.1 fL (7.4-11.0); MONOCYTES # (AUTO) 0.7 x10^3/uL (0.3-0.8); MONOCYTES % (AUTO) 7.3 % (0.0-13.0); NEUTROPHILS # (AUTO) 4.5 x10^3/uL (2.2-4.8); NEUTROPHILS % (AUTO) 46.2 % (42.0-75.0); PLATELET COUNT 292 X10^3/uL (150.0-450.0); RED BLOOD COUNT 4.66 X10^6/uL (3.5-5.4); RED CELL DISTRIBUTION WIDTH 14.5 % (11.6-16.5); WHITE BLOOD COUNT 9.8 X10^3/uL (3.6-10.0)
[2018-11-02 15:17] LABS: ALANINE AMINOTRANSFERASE 13 Units/L (12-78); ALBUMIN 3.3 g/dL (3.4-5.0); ALKALINE PHOSPHATASE 108 Units/L (46-116); ASPARTATE AMINO TRANSFERASE 13 Units/L (15-37); BLOOD UREA NITROGEN 9 mg/dL (7-18); CALCIUM 8.7 mg/dL (8.5-10.1); CARBON DIOXIDE 21.6 mmol/L (21-32); CHLORIDE 106 mmol/L (98-107); COR CA(FOR HYPOALB) 9.3 mg/dL (8.5-10.1); CREATININE 0.72 mg/dL (0.55-1.02); SODIUM 141 mmol/L (136-145); TOTAL PROTEIN 7.5 g/dL (6.4-8.2); eGFR NON BLACK RACES > 60 (>60)
[2018-11-02] MEDS: NS 1000 ML 1,000 ML IV SCH (16:20)
[2018-11-02] MEDS: DUONEB 0.5 MG/3 MG NEB SCH ×2 (16:30→20:49)
--- NOTE | 2018-11-02 18:08 | DR.H&P ---
H&P - History & Physical for Day of: H&P Date: 11/02/18 - Chief Complaint Chief Complaint: generalized weakness, dehydration and diarrhea - History of Present Illness History of Present Illness: 63 yo female patient who presents to the office for a follow up visit. Pt continues to c/o joint pain, bilateral hip pain, and LBP. Pt rates pain as a 8/10 today in office. Pt denies having any recent trauma and relates to chronic diagnosis. Pt has a history of rheumatoid arthritis, oa of multiple joints, cervical and lumbar ddd. Pt also c/o bilateral hand pain today in office. Pt is currently under the care of Dr. King for her RA . Dr. King has prescribed pt Enbrel 3 months ago but pt reports that it is breaking her out. Reports that she has several areas that will pop up on BLE. Does report that they will flake. Does state that she is also having bruising. Pt has a hx of GERD and states it is stable currently. Pt has L spine DDD and C spine DDD. Patient reports that she has not been receiving the Delight. Does complain of ARISTIDES/MDD. Patient is noted to be crying in office. States that she has been having diarrhea x2 weeks. Does report episodes of incontinence. States that she has not been able to tolerate food x2 weeks. Does report episodes of nausea and vomiting. Patient will be admitted to [facility] for further treatment. - Past Medical History Past Medical History: Depression, Anxiety, Arthritis Additional Medical History: SMOKER - Past Surgical History Surgical History: Abdominal Surgery, Appendectomy, Cholecystectomy, Hyster ectomy, Tonsillectomy - Family History Family Medical History: Coronary Artery Disease - Social History Does patient currently use any type of tobacco product: Yes Have you used tobacco products in the last 12 months: Yes Type of Tobacco Use: Cigarettes How many years tobacco product used: 31 Does any household member use tobacco: No Alcohol Use: None Drug Use: Prescription Drugs - Medications Home Medications: gabapentin Allergy (Verified 11/02/18 14:12) CONTINUE taking the following medications alendronate 70 mg PO Q7D 11/02/18 [History] celecoxib 1 cap PO BID 11/02/18 [History] ondansetron HCl 8 mg PO PRN PRN 11/02/18 [History] pantoprazole 40 mg PO BID 11/02/18 [History] prednisone 10 mg PO DAILY 11/02/18 [History] tizanidine 0.5 tab PO BID 11/02/18 [History] topiramate 1 tab PO BID 11/02/18 [History] topiramate 1 tab PO TID 11/02/18 [History] - Review of Systems Constitutional: See HPI Eyes: See HPI ENT: See HPI Respiratory: See HPI Cardiovascular: See HPI Gastrointestinal: See HPI Genitourinary: See HPI Musculoskeletal: See HPI Skin: See HPI Neurological: See HPI - Physical Exam Vital Signs: Temperature 98.1 F Pulse Rate [Left Brachial] 64 Pulse Rate 62 Respiratory Rate 18 Blood Pressure [Right Arm] 95/61 Blood Pressure [Left Arm] 99/61 Blood Pressure 100/59 O2 Sat by Pulse Oximetry 98 Oriented: Normal Eyes: Normal Ear: Normal Nose: Normal Throat: Normal Respiratory: Clear Throughout Cardiovascular: Normal : Normal Auscultation: Bowel Sounds: Increased Palpation: Normal Tenderness: Mild Skin: Decreased Turgur Musculoskeletal: Normal Psychiatric: Normal Mood Description: Calm, Depressed Affect: Depressed Speech Pattern: Clear - Assessment/Plan (1) Dehydration Status: Acute Plan: IV hydration (2) Diarrhea Status: Acute Plan: O&P. Stool study (3) Generalized weakness Status: Acute Plan: IV Hydration - Allergies Allergies/Adverse Reactions: Allergies Allergy/AdvReac Type Severity Reaction Status Date / Time gabapentin Allergy Verified 11/02/18 14:12
--- NOTE | 2018-11-02 18:22 | CT ---
CT abdomen and pelvis without contrast Indication: Right upper quadrant pain Comparison: 01/18/2015 Technique: Multiple axial images of the abdomen and pelvis were obtained from the lung bases to the pubic symphysis without the administration of IV contrast. Coronal and sagittal reformatted images were also provided. Dose reduction techniques including automated exposure control (AEC) and adjustment of mA and kV were utilized. Findings: Overall sensitivity in detection of solid organ injury, mass or inflammatory change along with vascular injury or mesenteric hematoma is severely limited given lack of IV contrast administration. Moderate paraseptal emphysematous changes noted within the lung bases. No focal airspace consolidation or nodule. No pleural effusion. Limitations of a noncontrast examination there is no change in small hypoattenuating lesion within the posterior hepatic segment on axial image 33. No new hepatic lesion identified. Prior cholecystectomy is noted. Bile ducts are normal in caliber. The spleen, pancreas and adrenal glands are unremarkable. Neither kidney demonstrates evidence of nephrolithiasis, hydronephrosis or mass. Small vascular calcification is noted within the left kidney. Urinary bladder is normal. No pelvic or adnexal mass. Previous sigmoid anastomosis. There is mild constipation. The appendix is not definitely identified. There is a small hernia lateral to the right inferior rectus abdominus muscle containing herniated omental fat. Upper GI tract demonstrates no evidence of mass or obstruction. There is a very small sliding hiatal hernia IMPRESSION: 1. No acute inflammatory process identified within the abdomen or pelvis given limitations of a noncontrast examination. 2. Mild constipation. 3. Multiple chronic, incidental findings as described above. Reported By:
[2018-11-02 20:02] LABS: BILIRUBIN,URINE NEGATIVE (NEGATIVE); BLOOD/HEMOGLOBIN,URINE NEGATIVE (NEGATIVE); GLUCOSE, URINE NEGATIVE (NEGATIVE); KETONES,URINE NEGATIVE (NEGATIVE); LEUKOCYTE ESTERASE ,URINE 1+ (NEGATIVE); NITRITES,URINE NEGATIVE (NEGATIVE); PH,URINE 6.5 (5.0 - 8.0); PROTEIN,URINE NEGATIVE (NEGATIVE); UROBILINOGEN,URINE NORMAL (NORMAL)
[2018-11-02 20:04] LABS: APPEARANCE,URINE CLEAR (CLEAR); COLOR,URINE YELLOW (YELLOW)
[2018-11-02 20:08] LABS: BACTERIA,URINE TRACE /HPF (NEGATIVE); RBC,URINE NONE SEEN /HPF (0-3); SQUAMOUS EPITHELIAL CELL,UR FEW /HPF (NEGATIVE)
[2018-11-02] MEDS: TORADOL 15 MG VIAL IVP PRN (20:38)
[2018-11-02] MEDS: PULMICORT NEB TX 0.5 MG NEB SCH (20:49)
[2018-11-02] MEDS ORDERED: COLACE CAP 100 MG PO ONE (21:12)
[2018-11-02] MEDS: COLACE CAP 100 MG PO SCH (21:28)
[2018-11-03] MEDS: NS 1000 ML 1,000 ML IV SCH ×4 (00:09→17:58)
[2018-11-03] MEDS: TORADOL 15 MG VIAL IVP PRN ×3 (03:13→19:41)
[2018-11-03 05:23] LABS: BASOPHILS # (AUTO) 0.1 X10^3/uL (0.0-0.1); BASOPHILS % (AUTO) 0.8 % (0.2-1.0); EOSINOPHILS # (AUTO) 0.7 x10^3/uL (0.0-0.2); EOSINOPHILS % (AUTO) 6.7 % (0.9-2.9); HEMATOCRIT 36.4 % (36.0-47.0); LYMPHOCYTES # (AUTO) 3.6 X10^3/uL (1.3-2.9); LYMPHOCYTES % (AUTO) 36.3 % (21.0-51.0); MEAN CORPUSCULAR HEMOGLOBIN 32.3 pg (27.0-34.0); MEAN CORPUSCULAR HGB CONC 34.2 g/dL (33.0-35.0); MEAN CORPUSCULAR VOLUME 94.4 fL (80.0-100.0); MEAN PLATELET VOLUME 10.1 fL (7.4-11.0); MONOCYTES # (AUTO) 0.8 x10^3/uL (0.3-0.8); MONOCYTES % (AUTO) 7.7 % (0.0-13.0); NEUTROPHILS # (AUTO) 4.8 x10^3/uL (2.2-4.8); NEUTROPHILS % (AUTO) 48.5 % (42.0-75.0); PLATELET COUNT 257 X10^3/uL (150.0-450.0); RED BLOOD COUNT 3.86 X10^6/uL (3.5-5.4); RED CELL DISTRIBUTION WIDTH 14.6 % (11.6-16.5); WHITE BLOOD COUNT 9.9 X10^3/uL (3.6-10.0)
[2018-11-03 05:24] LABS: HEMOGLOBIN 12.4 g/dL (12.0-16.0)
[2018-11-03 05:34] LABS: ALANINE AMINOTRANSFERASE 8 Units/L (12-78); ALBUMIN 2.6 g/dL (3.4-5.0); ALKALINE PHOSPHATASE 79 Units/L (46-116); ASPARTATE AMINO TRANSFERASE 12 Units/L (15-37); BLOOD UREA NITROGEN 9 mg/dL (7-18); CALCIUM 7.5 mg/dL (8.5-10.1); CARBON DIOXIDE 22.1 mmol/L (21-32); CHLORIDE 111 mmol/L (98-107); COR CA(FOR HYPOALB) 8.6 mg/dL (8.5-10.1); CREATININE 0.63 mg/dL (0.55-1.02); SODIUM 142 mmol/L (136-145); eGFR NON BLACK RACES > 60 (>60)
[2018-11-03] MEDS ORDERED: PHARMACY CONSULT - DOSE _____ XX SCH (09:00)
[2018-11-03] MEDS: PULMICORT NEB TX 0.5 MG NEB SCH ×2 (09:00→20:32)
[2018-11-03] MEDS: DUONEB 0.5 MG/3 MG NEB SCH ×4 (09:00→20:32)
[2018-11-03] MEDS ORDERED: XANAX ONE (11:28)
--- NOTE | 2018-11-03 14:05 | CT ---
HISTORY: Right-sided abdominal pain and tenderness Study: CT abdomen and pelvis with contrast Comparison: 11/02/2018 Technique: Multiple axial images of the abdomen and pelvis were obtained with IV contrast. Oral contrast was administered. Dose reduction techniques including Automated Exposure Control (AEC) and adjustment of mA and kV were utilized. Findings: There are paraseptal emphysematous changes and mild interstitial fibrosis at the lung bases. Heart size is normal. Probable cyst in the right hepatic lobe. The spleen, pancreas and adrenal glands are unremarkable. Gallbladder is removed. No renal calculi or obstructive uropathy identified. The ureters are normal. No free intraperitoneal air. No evidence of intestinal obstruction or inflammation. Cecum is hypermobile now positioned slightly to the left of midline but without evidence to suggest obstruction. There is moderate retained stool in the colon. Appendix not visualized. No free fluid or abscess. There is a small fat containing spigelian hernia on the right, see axial image 69. No bowel entrapment. Vascular structures are unremarkable. Normal urinary bladder. Uterus is removed. No bulky adenopathy is identified. IMPRESSION: 1. No acute abnormality identified. 2. Small fat containing spigelian hernia on the right. 3. Stable chronic findings as described. Reported By:
[2018-11-03] MEDS ORDERED: MORPHINE SULFATE INJ 2 MG INJ IVP PRN (15:32)
--- NOTE | 2018-11-03 15:37 | PCM.PROG ---
Progress Note - Progress Note for Day of Date of Exam: 11/03/18 - Subjective Subjective: 63 WF ADMITTED ON 11/02 FOR CO INTRACTABLE ABDOMINAL PAIN AND N/V/D. PT STATES SHE HAD BEEN HAVING MUCOUS IN HER STOOL WITH RIGHT ABDOMINAL TENDERNESS. CT ABD AND PELVIS W/O ON ADMISSION WITHOUT No acute inflammatory process identified within the abdomen or pelvis given limitations of a noncon trast examination and mild constipation. PT STATES SHE HAD EGD PER DR BOWLES THIS PAST YEAR WAS PRESCRIBED PROTONIX BID BUT HAS NOT BEEN TAKING IT AT HOME. PT'S ADMISSIONS, RENAL FUNCTION AND CBC WNL. PT HAD STOOL STUDIES COLLECTED, PENDING. PT HAD RIGHT MID AND UPPER ABDOMINAL TENDERNESS ON EXAM. WILL OBTAIN CT ABD/PELVIS WITH CONTRAST, NPO UNTIL CT THEN CLEAR LIQUIDS WITH MIRALAX BID. STARTED ON IV PROTONIX, PRN PAIN AND NAUSEA CONTROL. - Past Medical Family Social History Past Med/Fam/Surg Hx: No changes since H&P Allergies: Allergies gabapentin Allergy (Verified 11/02/18 14:12) - Review of Systems ROS: No change since H&P - Vital Signs and I&O's Vital Signs: Temperature 97.8 F Pulse Rate [Left Brachial] 60 Pulse Rate 60 Respiratory Rate 18 Blood Pressure [Right Arm] 124/60 Blood Pressure [Left Arm] 99/61 Blood Pressure 100/59 O2 Sat by Pulse Oximetry 96 Intake and Output: Intake & Output 11/01/18 11/02/18 11/03/18 11/04/18 11:59 11:59 11:59 11:59 Intake Total 1280 / 1280 Balance 1280 / 1280 - Physical Exam Oriented: Normal Eyes: Normal Ear: Normal Nose: Normal Throat: Normal Respiratory: Diminished Cardiovascular: Normal : Normal Auscultation: Bowel Sounds: Increased Tenderness: Mild Skin: Decreased Turgur Musculoskeletal: Normal Psychiatric: Normal Mood Description: Calm, Depressed Affect: Depressed Speech Pattern: Clear, Appropriate - Laboratory and Diagnostics Result Diagrams: 11/03/18 04:34 11/03/18 04:34 Labs: 11/02/18 19:40 Urine,Clean Catch Urine Culture - Preliminary 11/02/18 19:40 Stool - Final Laboratory WBC 9.9 X10^3/uL (3.6-10.0) 11/03/18 04:34 RBC 3.86 X10^6/uL (3.5-5.4) 11/03/18 04:34 Hgb 12.4 g/dL (12.0-16.0) D 11/03/18 04:34 Hct 36.4 % (36.0-47.0) 11/03/18 04:34 MCV 94.4 fL (80.0-100.0) 11/03/18 04:34 MCH 32.3 pg (27.0-34.0) 11/03/18 04:34 MCHC 34.2 g/dL (33.0-35.0) 11/03/18 04:34 RDW 14.6 % (11.6-16.5) 11/03/18 04:34 Plt Count 257 X10^3/uL (150.0-450.0) 11/03/18 04:34 MPV 10.1 fL (7.4-11.0) 11/03/18 04:34 Neut % (Auto) 48.5 % (42.0-75.0) 11/03/18 04:34 Lymph % (Auto) 36.3 % (21.0-51.0) 11/03/18 04:34 [place] % (Auto) 7.7 % (0.0-13.0) 11/03/18 04:34 Eos % (Auto) 6.7 % (0.9-2.9) H 11/03/18 04:34 Baso % (Auto) 0.8 % (0.2-1.0) 11/03/18 04:34 Neut # (Auto) 4.8 x10^3/uL (2.2-4.8) 11/03/18 04:34 Lymph # (Auto) 3.6 X10^3/uL (1.3-2.9) H 11/03/18 04:34 [place] # (Auto) 0.8 x10^3/uL (0.3-0.8) 11/03/18 04:34 Eos # (Auto) 0.7 x10^3/uL (0.0-0.2) H 11/03/18 04:34 Baso # (Auto) 0.1 X10^3/uL (0.0-0.1) 11/03/18 04:34 Absolute Nucleated RBC 0.0 /100WBC 11/03/18 04:34 Sodium 142 mmol/L (136-145) 11/03/18 04:34 Corrected Sodium TNP 11/03/18 04:34 Potassium 3.7 mmol/L (3.5-5.1) 11/03/18 04:34 Chloride 111 mmol/L (98-107) H 11/03/18 04:34 Carbon Dioxide 22.1 mmol/L (21-32) 11/03/18 04:34 BUN 9 mg/dL (7-18) 11/03/18 04:34 Creatinine 0.63 mg/dL (0.55-1.02) 11/03/18 04:34 Est GFR (MDRD) Af Amer > 60 (>60) 11/03/18 04:34 Est GFR (MDRD) Non-Af > 60 (>60) 11/03/18 04:34 Glucose 91 mg/dL (65-99) 11/03/18 04:34 Calcium 7.5 mg/dL (8.5-10.1) L 11/03/18 04:34 Corrected Calcium 8.6 mg/dL (8.5-10.1) 11/03/18 04:34 Total Bilirubin 0.20 mg/dL (0.2-1.0) 11/03/18 04:34 AST 12 Units/L (15-37) L 11/03/18 04:34 ALT 8 Units/L (12-78) L 11/03/18 04:34 Alkaline Phosphatase 79 Units/L (46-116) 11/03/18 04:34 Total Protein 6.0 g/dL (6.4-8.2) L 11/03/18 04:34 Albumin 2.6 g/dL (3.4-5.0) L 11/03/18 04:34 Globulin 3.4 g/dL (2.5-4.5) 11/03/18 04:34 Albumin/Globulin Ratio 0.8 Ratio (1.1-2.1) L 11/03/18 04:34 Specimen Type Clean catch urine 11/02/18 19:40 Urine Color Yellow (YELLOW) 11/02/18 19:40 Urine Appearance Clear (CLEAR) 11/02/18 19:40 Urine pH 6.5 (5.0 - 8.0) 11/02/18 19:40 Ur Specific [place] 1.010 (1.000-1.030) 11/02/18 19:40 Urine Protein Negative (NEGATIVE) 11/02/18 19:40 Urine Glucose (UA) Negative (NEGATIVE) 11/02/18 19:40 Urine Ketones Negative (NEGATIVE) 11/02/18 19:40 Urine Occult Blood Negative (NEGATIVE) 11/02/18 19:40 Urine Nitrite Negative (NEGATIVE) 11/02/18 19:40 Urine Bilirubin Negative (NEGATIVE) 11/02/18 19:40 Urine Urobilinogen Normal (NORMAL) 11/02/18 19:40 Ur Leukocyte Esterase 1+ (NEGATIVE) 11/02/18 19:40 Urine RBC None seen /HPF (0-3) 11/02/18 19:40 Urine WBC 0-2 /HPF (0-5) 11/02/18 19:40 Ur Squamous Epith Cells Few /HPF (NEGATIVE) 11/02/18 19:40 Urine Bacteria Trace /HPF (NEGATIVE) 11/02/18 19:40 Ur Culture Indicated? Yes/culture set up 11/02/18 19:40 Stool Description 60g,semiform,brown 11/02/18 19:40 Stl Occult Blood (IFOB) Negative (NEGATIVE) 11/02/18 19:40 Stool for White Cells Negative (NEGATIVE) 11/02/18 19:40 Stl C. diff Tox B Gene Negative (NEGATIVE) 11/02/18 19:40 Stl C. diff [id number] Negative (NEGATIVE) 11/02/18 19:40 - Plan (1) Abdominal pain Status: Acute Plan: IV HYDRATION, MONITOR I&OS. PAIN AND NAUSEA CONTROL, MIRALAX FOR CONSTIPATION, CT ABD/PELVIS WITH CONTRAST, PROTONIX. AM LABS, STOOL STUDIES COLLECTED, PENDING (2) GERD (gastroesophageal reflux disease) Status: Acute (3) Intractable vomiting with nausea Status: Acute (4) Mucous in stools Status: Acute (5) Rheumatoid arthritis Status: Chronic (6) COPD (chronic obstructive pulmonary disease) Status: Chronic Qualifiers:
[2018-11-03] MEDS ORDERED: MIRALAX POWDER (255 GRAMS BTL) PO NR (18:00)
[2018-11-03] MEDS: PROTONIX INJ 40 MG VIAL IVP SCH (19:26)
[2018-11-03] MEDS: DULCOLAX TAB EC 5 MG PO ONE ×2 (19:29→19:40)
[2018-11-03] MEDS ORDERED: ZOLOFT ONE (20:47)
[2018-11-03] MEDS ORDERED: COLACE CAP 100 MG PO SCH (21:00)
[2018-11-03] MEDS ORDERED: DULCOLAX TAB EC 5 MG PO ONE (21:00)
[2018-11-03] MEDS ORDERED: ZOLOFT PO SCH (21:00)
[2018-11-03] MEDS: PLAQUENIL PO SCH (21:15)
[2018-11-03] MEDS: COLACE CAP 100 MG PO SCH (21:16)
[2018-11-03] MEDS: MIRALAX POWDER (1 DOSE 17 G) PO SCH (21:17)
[2018-11-03] MEDS: XANAX PO PRN (21:17)
[2018-11-04 05:34] LABS: BASOPHILS # (AUTO) 0.1 X10^3/uL (0.0-0.1); BASOPHILS % (AUTO) 0.8 % (0.2-1.0); EOSINOPHILS # (AUTO) 0.7 x10^3/uL (0.0-0.2); EOSINOPHILS % (AUTO) 6.4 % (0.9-2.9); HEMATOCRIT 38.4 % (36.0-47.0); HEMOGLOBIN 12.6 g/dL (12.0-16.0); LYMPHOCYTES # (AUTO) 3.6 X10^3/uL (1.3-2.9); LYMPHOCYTES % (AUTO) 34.4 % (21.0-51.0); MEAN CORPUSCULAR HEMOGLOBIN 31.3 pg (27.0-34.0); MEAN CORPUSCULAR HGB CONC 32.9 g/dL (33.0-35.0); MEAN CORPUSCULAR VOLUME 95.1 fL (80.0-100.0); MEAN PLATELET VOLUME 10.1 fL (7.4-11.0); MONOCYTES # (AUTO) 0.7 x10^3/uL (0.3-0.8); MONOCYTES % (AUTO) 6.5 % (0.0-13.0); NEUTROPHILS # (AUTO) 5.4 x10^3/uL (2.2-4.8); NEUTROPHILS % (AUTO) 51.9 % (42.0-75.0); PLATELET COUNT 263 X10^3/uL (150.0-450.0); RED BLOOD COUNT 4.03 X10^6/uL (3.5-5.4); RED CELL DISTRIBUTION WIDTH 14.9 % (11.6-16.5); WHITE BLOOD COUNT 10.4 X10^3/uL (3.6-10.0)
[2018-11-04 05:48] LABS: ALANINE AMINOTRANSFERASE 9 Units/L (12-78); ALBUMIN 2.9 g/dL (3.4-5.0); ALKALINE PHOSPHATASE 86 Units/L (46-116); ASPARTATE AMINO TRANSFERASE 13 Units/L (15-37); BLOOD UREA NITROGEN 5 mg/dL (7-18); CALCIUM 7.9 mg/dL (8.5-10.1); CARBON DIOXIDE 21.3 mmol/L (21-32); CHLORIDE 112 mmol/L (98-107); COR CA(FOR HYPOALB) 8.8 mg/dL (8.5-10.1); CREATININE 0.58 mg/dL (0.55-1.02); SODIUM 143 mmol/L (136-145); TOTAL PROTEIN 6.6 g/dL (6.4-8.2); eGFR NON BLACK RACES > 60 (>60)
[2018-11-04] MEDS: NS 1000 ML 1,000 ML IV SCH ×2 (05:50→09:07)
--- NOTE | 2018-11-04 07:48 | RAD ---
HISTORY: COPD Study: Chest AP portable Comparison: 02/08/2018 Findings: The heart is within normal limits in size. The laurie are normal. Diffuse chronic interstitial lung disease are present and not significantly changed from the prior examination. No alveolar infiltrates or pleural effusions are identified. The bony thorax is unremarkable. IMPRESSION: Diffuse chronic interstitial lung disease, radiographically stable when compared with the prior examination Reported By:
--- NOTE | 2018-11-04 08:16 | US ---
HISTORY: Right upper quadrant pain Study: Hepatic sonogram Comparison: CT abdomen pelvis 11/03/2018 Technique: Multiple grayscale sonographic images were obtained. Findings: The liver is normal in size and configuration and without cyst mass or biliary ductal dilatation. Limited Doppler evaluation was normal. The gallbladder is surgically absent. The common duct measured 5.6 mm. IMPRESSION: No significant abnormality identified Reported By:
[2018-11-04] MEDS: PULMICORT NEB TX 0.5 MG NEB SCH (08:20)
[2018-11-04] MEDS: DUONEB 0.5 MG/3 MG NEB SCH ×2 (08:20→12:09)
--- NOTE | 2018-11-04 08:48 | DR.CONSULT ---
Consult - Consultation for Day of: Date: 11/03/18 - Chief Complaint Chief Complaint: Patient referred for Abdominal pain. Patient with complaints of RUQ abdominal and diarrhea. - History of Present Illness History of Present Illness: Patient is a 63 yo female who was referred for Abdominal pain. Patient with complaints of RUQ abdominal and diarrhea x 2 weeks. Patient denies dysphagia, dyspepsia, nausea, vomiting, constipation, melena and hematochezia. Last colon was 01/04/18 which showed internal hemorrhoids, hyperplastic polyps and diverticulosis. Last EGD was 04/07/18 which showed non severe reflux esophagitis, esiphageal stricture, 4 cm hiatal hernia, gastritis. Hgb 12.4, Hct 36.4, Plt 257. - Past Medical History Past Medical History: Depression, Anxiety, Arthritis Additional Medical History: SMOKER - Past Surgical History Surgical History: Abdominal Surgery, Appendectomy, Cholecystectomy, Hysterectomy, Tonsillectomy - Family History Family Medical History: Coronary Artery Disease - Social History Does patient currently use any type of tobacco product: Yes Have you used tobacco products in the last 12 months: Yes Type of Tobacco Use: Cigarettes How many years tobacco product used: 31 Does any household member use tobacco: No Alcohol Use: None Drug Use: Prescription Drugs - Medications Home Medications: gabapentin Allergy (Verified 11/02/18 14:12) CONTINUE taking the following medications alendronate 70 mg PO Q7D 11/02/18 [History] celecoxib 1 cap PO BID 11/02/18 [History] ondansetron HCl 8 mg PO PRN PRN 11/02/18 [History] pantoprazole 40 mg PO BID 11/02/18 [History] prednisone 10 mg PO DAILY 11/02/18 [History] tizanidine 0.5 tab PO BID 11/02/18 [History] topiramate 1 tab PO BID 11/02/18 [History] topiramate 1 tab PO TID 11/02/18 [History] - Review of Systems Gastrointestinal: Abdominal Pain (RUQ), Diarrhea. denies: Nausea, Vomiting, Constipation, Melena, Hematochezia, Other - Physical Exam Vital Signs: Temperature 97.5 F Pulse Rate [Left Brachial] 65 Pulse Rate 66 Respiratory Rate 20 Blood Pressure [Right Arm] 101/64 Blood Pressure [Left Arm] 99/61 Blood Pressure 100/59 O2 Sat by Pulse Oximetry 98 Oriented: Normal Eyes: Normal Ear: Normal Nose: Normal Throat: Normal Respiratory: Clear Throughout Cardiovascular: Normal : Normal Auscultation: Bowel Sounds: Normal Palpation: Normal, Other (no distention). negative: Spleen Enlarged, Liver Enlarged, Mass Pulsatile Tenderness: RUQ Skin: Normal Musculoskeletal: Normal Psychiatric: Normal Mood Description: Calm Affect: Normal Speech Pattern: Clear, Appropriate - Plan Plan: Assessment. 1. RUQ pain. 2. Diarrhea , change in bowel habits, r/o infectious etiology. Plan. 1. Liver US. 2. Stool studies negative, colon in am. Plan reviewed with Dr. Fitch - Allergies Allergies/Adverse Reactions: Allergies Allergy/AdvReac Type Severity Reaction Status Date / Time gabapentin Allergy Verified 11/02/18 14:12
[2018-11-04] MEDS ORDERED: EFFEXOR XR 75 MG CAP PO SCH (09:00)
[2018-11-04] MEDS: PLAQUENIL PO SCH (09:05)
[2018-11-04] MEDS: PROTONIX INJ 40 MG VIAL IVP SCH (09:05)
[2018-11-04] MEDS: MIRALAX POWDER (1 DOSE 17 G) PO SCH (09:07)
[2018-11-04] MEDS: TORADOL 15 MG VIAL IVP PRN (09:15)
[2018-11-04 12:38] VITALS: BP 111/63
[2018-11-04] MEDS: XANAX PO PRN (12:41)
== END 2018-11-04 16:25 | disposition home or self-care (01) ==
LOC: MED/SURG
PROVIDERS: ADMIT Internal Medicine; ATTEND Internal Medicine
DX: M51.36 Other intervertebral disc degeneration, lumbar region; M06.9 Rheumatoid arthritis, unspecified; J43.9 Emphysema, unspecified; K58.0 Irritable bowel syndrome with diarrhea; R53.1 Weakness; E86.0 Dehydration; R11.2 Nausea with vomiting, unspecified; M50.30 Other cervical disc degeneration, unspecified cervical region; K76.89 Other specified diseases of liver
CPT/HCPCS: 36415; 71010; 71045; 74176; 74177; 76705; 80053; 81001; 82270; 83630; 85025; 87040; 87045; 87086; 87427; 87449; 87493; 87899; 94640; 94760; 96367; 96374; A4216; A4222; C9113; G0378; J1885; J2270; J7030; J7620; J7626